=== PATIENT | female | born 1950 | race Two or more races ===

== ENCOUNTER → 2016-08-25 | Outpatient (CLI) | payer MEDICARE, OTHER ==
[2016-08-25 11:06] LABS: PROTHROMBIN TIME 23.6 SEC (11.4-15.4)
== END ==
LOC: OD 10:23
PROVIDERS: ATTEND Internal Medicine Cardiovascular Disease
DX: I48.1 Persistent atrial fibrillation (principal)
CPT/HCPCS: 36415; 85610

== ENCOUNTER → 2016-09-03 | Outpatient (CLI) | payer MEDICARE, OTHER | LOC: OD 11:12 | PROVIDERS: ATTEND Internal Medicine Cardiovascular Disease | DX: I48.1 Persistent atrial fibrillation (principal) | CPT/HCPCS: 36415; 85610 ==

== ENCOUNTER → 2016-09-16 | Outpatient (CLI) | payer MEDICARE, OTHER ==
[2016-09-16 13:15] LABS: PROTHROMBIN TIME 28.9 SEC (11.4-15.4)
== END ==
LOC: OD 12:00
PROVIDERS: ATTEND Internal Medicine Cardiovascular Disease
DX: I48.1 Persistent atrial fibrillation (principal)
CPT/HCPCS: 36415; 85610

== ENCOUNTER → 2016-09-30 | Outpatient (CLI) | payer MEDICARE, OTHER ==
[2016-09-30 13:42] LABS: PROTHROMBIN TIME 29.1 SEC (11.4-15.4)
== END ==
LOC: OD 12:44
PROVIDERS: ATTEND Internal Medicine Cardiovascular Disease
DX: I48.1 Persistent atrial fibrillation (principal)
CPT/HCPCS: 36415; 85610

== ENCOUNTER → 2016-10-14 | Outpatient (CLI) | payer MEDICARE, OTHER ==
[2016-10-14 13:35] LABS: PROTHROMBIN TIME 27.5 SEC (11.4-15.4)
== END ==
LOC: OD 12:45
PROVIDERS: ATTEND Internal Medicine Cardiovascular Disease
DX: I48.1 Persistent atrial fibrillation (principal)
CPT/HCPCS: 36415; 85610

== ENCOUNTER → 2016-10-21 | Outpatient (CLI) | payer MEDICARE, OTHER ==
[2016-10-21 10:48] LABS: HEMOGLOBIN 14.5 g/dL (12.0-15.5); HGB HCT DIFFERENCE 1.5; MEAN CORPUSCULAR HGB CONC 34.5 g/dL (32.0-36.0); MEAN CORPUSCULAR VOLUME 87 fl (80-97); RED BLOOD COUNT 4.82 10^6/uL (3.72-5.28); RED CELL DISTRIBUTION WIDTH 13.9 % (11.5-14.0); WHITE BLOOD COUNT 9.2 10^3/uL (4.0-10.5)
[2016-10-21 11:17] LABS: ALANINE AMINOTRANSFERASE 26 U/L (9-52); ALBUMIN 3.8 g/dL (3.5-5.0); ALKALINE PHOSPHATASE 96 U/L (38-126); ANION GAP 13 (5-19); ASPARTATE AMINO TRANSFERASE 18 U/L (14-36); BILIRUBIN,DIRECT 0.3 mg/dL (0.0-0.4); BILIRUBIN,TOTAL 1.1 mg/dL (0.2-1.3); BLOOD UREA NITROGEN 8 mg/dL (7-20); CALCIUM 9.4 mg/dL (8.4-10.2); CARBON DIOXIDE 24 mmol/L (22-30); CHLORIDE 106 mmol/L (98-107); CHOLESTEROL 129.62 mg/dL (0-200); CREATININE RESULT 0.81 mg/dL (0.52-1.25); Direct HDL 43 mg/dL (>40); GLUCOSE 105 mg/dL (75-110); MAGNESIUM 2.2 mg/dL (1.6-2.3); POTASSIUM 4.2 mmol/L (3.6-5.0); SODIUM 143.3 mmol/L (137-145); TOTAL PROTEIN 6.9 g/dL (6.3-8.2); TRIGLYCERIDES 109 mg/dL (<150)
[2016-10-21 11:29] LABS: DIRECT LDL 56 mg/dL (<100)
== END ==
LOC: OD 09:23
PROVIDERS: ATTEND Internal Medicine Cardiovascular Disease
DX: E78.2 Mixed hyperlipidemia (principal); Z79.899 Other long term (current) drug therapy
CPT/HCPCS: 36415; 80048; 80061; 80076; 83735; 85027

== ENCOUNTER → 2016-10-27 | Outpatient (CLI) | payer MEDICARE, OTHER ==
[2016-10-27 11:14] LABS: PROTHROMBIN TIME 35.1 SEC (11.4-15.4)
== END ==
LOC: OD 09:52
PROVIDERS: ATTEND Internal Medicine Cardiovascular Disease
DX: I48.1 Persistent atrial fibrillation (principal)
CPT/HCPCS: 36415; 85610

== ENCOUNTER → 2016-11-04 | Outpatient (CLI) | payer MEDICARE, OTHER ==
[2016-11-04 11:19] LABS: PROTHROMBIN TIME 22.2 SEC (11.4-15.4)
== END ==
LOC: OD 10:16
PROVIDERS: ATTEND Internal Medicine Cardiovascular Disease
DX: I48.1 Persistent atrial fibrillation (principal)
CPT/HCPCS: 36415; 85610

== ENCOUNTER → 2016-11-11 | Outpatient (CLI) | payer MEDICARE, OTHER ==
[2016-11-11 11:45] LABS: PROTHROMBIN TIME 30.2 SEC (11.4-15.4)
== END ==
LOC: OD 10:44
PROVIDERS: ATTEND Internal Medicine Cardiovascular Disease
DX: I48.1 Persistent atrial fibrillation (principal)
CPT/HCPCS: 36415; 85610

== ENCOUNTER → 2016-11-24 | Outpatient (CLI) | payer MEDICARE, OTHER ==
[2016-11-24 14:04] LABS: PROTHROMBIN TIME 20.3 SEC (11.4-15.4)
== END ==
LOC: OD 12:52
PROVIDERS: ATTEND Internal Medicine Cardiovascular Disease
DX: I48.1 Persistent atrial fibrillation (principal)
CPT/HCPCS: 36415; 85610

== ENCOUNTER → 2016-12-05 | Outpatient (CLI) | payer MEDICARE, OTHER | LOC: RAD 07:56 | PROVIDERS: ATTEND Internal Medicine Gastroenterology | DX: Q44.6 Cystic disease of liver (principal); R60.9 Edema, unspecified | CPT/HCPCS: 74177; 82565 ==

== ENCOUNTER → 2016-12-08 | Outpatient (CLI) | payer MEDICARE, OTHER ==
[2016-12-08 13:43] LABS: PROTHROMBIN TIME 25.8 SEC (11.4-15.4)
== END ==
LOC: OD 12:32
PROVIDERS: ATTEND Internal Medicine Cardiovascular Disease
DX: I48.1 Persistent atrial fibrillation (principal)
CPT/HCPCS: 36415; 85610

== ENCOUNTER → 2016-12-22 | Outpatient (CLI) | payer MEDICARE, OTHER ==
[2016-12-22 11:31] LABS: PROTHROMBIN TIME 25.3 SEC (11.4-15.4)
== END ==
LOC: OD 10:22
PROVIDERS: ATTEND Internal Medicine Cardiovascular Disease
DX: I48.1 Persistent atrial fibrillation (principal)
CPT/HCPCS: 36415; 85610

== ENCOUNTER → 2017-01-05 | Outpatient (CLI) | payer MEDICARE, OTHER ==
[2017-01-05 14:49] LABS: PROTHROMBIN TIME 26.6 SEC (11.4-15.4)
== END ==
LOC: OD 13:28
PROVIDERS: ATTEND Internal Medicine Cardiovascular Disease
DX: I48.1 Persistent atrial fibrillation (principal)
CPT/HCPCS: 36415; 85610

== ENCOUNTER → 2017-02-02 | Outpatient (CLI) | payer MEDICARE, OTHER ==
[2017-02-02 14:21] LABS: PROTHROMBIN TIME 23.6 SEC (11.4-15.4)
== END ==
LOC: OD 12:23
PROVIDERS: ATTEND Internal Medicine Cardiovascular Disease
DX: I48.1 Persistent atrial fibrillation (principal)
CPT/HCPCS: 36415; 85610

== ENCOUNTER → 2017-02-17 | Outpatient (CLI) | payer MEDICARE, OTHER ==
[2017-02-17 13:25] LABS: PROTHROMBIN TIME 25.2 SEC (11.4-15.4)
== END ==
LOC: OD 12:00
PROVIDERS: ATTEND Internal Medicine Cardiovascular Disease
DX: I48.1 Persistent atrial fibrillation (principal)
CPT/HCPCS: 36415; 85610

== ENCOUNTER → 2017-03-09 | Outpatient (CLI) | payer MEDICARE, OTHER ==
[2017-03-09 12:19] LABS: PROTHROMBIN TIME 22.6 SEC (11.4-15.4)
== END ==
LOC: OD 10:35
PROVIDERS: ATTEND Internal Medicine Cardiovascular Disease
DX: I48.1 Persistent atrial fibrillation (principal)
CPT/HCPCS: 36415; 85610

== ENCOUNTER → 2017-03-09 | Outpatient (CLI) | payer MEDICARE, OTHER ==
--- NOTE | 2017-03-09 14:30 | WOMENS IMAGING REPORT ---
EXAM DESCRIPTION: BONE DENSITY HIP/SPINE COMPLETED DATE/TIME: 03/09/2017 11:39 am REASON FOR STUDY: AGE RELATED OSTEOPOROSIS W/O CURRENT PATHOLOGICAL FRACTURE; M81.0 Z12.31 ENCNTR S CREEN MAMMOGRAM FOR MALIGNANT NEOPLASM OF MINISTERIO M81.0 AGE-RELATED OSTEOPOROSIS W/O CURRENT PATHOLOGICA L FRAC COMPARISON: 02/28/2015 back to April 2006 TECHNIQUE: Dual-Energy X-ray Absorptiometry (DEXA) of the AP Spine and Hip. LIMITATIONS: None. FINDINGS: LUMBAR SPINE: The bone mineral density (BMD) measured from L1-L4 in the AP projection correlates with a T-score of 0.1, which is normal as defined by the World Health Organization. HIP: The bone mineral density (BMD) measured in the left hip correlates with a T-score of -1.8 in the femo ral neck, which is osteopenia as defined by the World Health Organization. IMPRESSION: 1. LUMBAR SPINE: Normal 2. HIP: Osteopenia COMMENT: The World Health Organization defines low BMD as follows: T-score: Normal: Greater than -1.0 Osteopenia: Between -1.0 and -2.5 Osteoporosis: Less than -2.5 without fractures Established osteoporosis: Less than -2.5 with fractures In general, you may wish to consider: Diagnosis Treatment Follow-up DEXA Normal BMD Prevention 2-3 years Osteopenia Prevention/Therapy 1-2 years Osteoporosis Therapy Yearly TECHNICAL DOCUMENTATION: JOB ID: [id number]- All Rights Reserved
--- NOTE | 2017-03-09 14:50 | WOMENS IMAGING REPORT ---
EXAM DESCRIPTION: RIGHT SCREENING MAMMO W/CAD COMPLETED DATE/TIME: 03/09/2017 11:40 am REASON FOR STUDY: ROUTINE SCREENING;Z12.31 Z12.31 ENCNTR SCREEN MAMMOGRAM FOR MALIGNANT NEOPLASM OF MINISTERIO M81.0 AGE-RELATED OSTEOPOROSIS W/O CURRENT PATHOLOGICAL FRAC COMPARISON: 03/04/2016 and 02/28/2015. TECHNIQUE: Standard craniocaudal and mediolateral oblique views of the breast recorded using digital acquisition. LIMITATIONS: None. FINDINGS: BREAST: right No masses, calcifications or architectural distortion. No areas of suspicion. Read with the assistance of CAD. .[facility] - R2 Cenova Version 1.3 .[facility] - R2 Cenova Version 1.3 .[facility] - R2 Cenova Version 2.4 .[facility] R2 Cenova Version 2.4 .[facility] - R2 Art [employer]raiser Version 9.2 IMPRESSION: NORMAL MAMMOGRAM. BIRADS 1. BREAST DENSITY: b. There are scattered areas of fibroglandular density. BIRAD: 1 NEGATIVE RECOMMENDATION: RECOMMENDATION: ROUTINE SCREENING. COMMENT: The patient has been notified of the results by letter per SA requirements. Additional no tification policies are in place for contacting patient with suspicious or incomplete findings. Quality ID #[id number]: The [employer] recommends an annual screening mammogram for women aged 40 years or over. This facility utilizes a reminder system to ensure that all patients receive reminder letters, and/or direct phone calls for appointments. This includes reminders for routine scr eening mammograms, diagnostic mammograms, or other Breast Imaging Interventions when appropriate. Th is patient will be placed in the appropriate reminder system. The [employer] (ACR) has developed recommendations for screening MRI of the breast s in certain patient populations, to be used in conjunction with mammography. Breast MRI surveillance may be appropriate for women with more than 20% lifetime risk of developing breast cancer as determi riya by genetic testing, significant family history of the disease, or history of mantle radiation for Hodgkins Disease. ACR Practice Guidelines 2008. TECHNICAL DOCUMENTATION: FINDING NUMBER: (1) ASSESSMENT: (1) JOB ID: [id number] [employer]- All Rights Reserved
== END ==
LOC: WI 08:52
PROVIDERS: ATTEND Internal Medicine Medical Oncology
DX: Z12.31 Encounter for screening mammogram for malignant neoplasm of breast (principal); M81.0 Age-related osteoporosis without current pathological fracture
CPT/HCPCS: 77080; G0202

== ENCOUNTER → 2017-03-23 | Outpatient (CLI) | payer MEDICARE, OTHER ==
[2017-03-23 13:20] LABS: PROTHROMBIN TIME 28.2 SEC (11.4-15.4)
== END ==
LOC: OD 12:31
PROVIDERS: ATTEND Internal Medicine Cardiovascular Disease
DX: Z79.01 Long term (current) use of anticoagulants (principal); Z79.899 Other long term (current) drug therapy
CPT/HCPCS: 36415; 85610

== ENCOUNTER → 2017-04-07 | Outpatient (CLI) | payer MEDICARE, OTHER ==
[2017-04-07 13:13] LABS: PROTHROMBIN TIME 25.1 SEC (11.4-15.4)
== END ==
LOC: OD 12:17
PROVIDERS: ATTEND Internal Medicine Cardiovascular Disease
DX: Z79.01 Long term (current) use of anticoagulants (principal); Z79.899 Other long term (current) drug therapy
CPT/HCPCS: 36415; 85610

== ENCOUNTER → 2017-04-20 | Outpatient (CLI) | payer MEDICARE, OTHER ==
[2017-04-20 14:06] LABS: PROTHROMBIN TIME 26.5 SEC (11.4-15.4)
== END ==
LOC: OD 12:47
PROVIDERS: ATTEND Internal Medicine Cardiovascular Disease
DX: Z51.81 Encounter for therapeutic drug level monitoring (principal); Z79.01 Long term (current) use of anticoagulants; Z79.899 Other long term (current) drug therapy
CPT/HCPCS: 36415; 85610

== ENCOUNTER → 2017-05-18 | Outpatient (CLI) | payer MEDICARE, OTHER ==
[2017-05-18 13:58] LABS: PROTHROMBIN TIME 26.1 SEC (11.4-15.4)
== END ==
LOC: OD 12:34
PROVIDERS: ATTEND Internal Medicine Cardiovascular Disease
DX: Z79.01 Long term (current) use of anticoagulants (principal); Z79.899 Other long term (current) drug therapy
CPT/HCPCS: 36415; 85610

== ENCOUNTER → 2017-06-15 | Outpatient (CLI) | payer MEDICARE, OTHER ==
[2017-06-15 15:32] LABS: PROTHROMBIN TIME 26.6 SEC (11.4-15.4)
== END ==
LOC: OD 14:24
PROVIDERS: ATTEND Internal Medicine Cardiovascular Disease
DX: Z51.81 Encounter for therapeutic drug level monitoring (principal); Z79.01 Long term (current) use of anticoagulants; Z79.899 Other long term (current) drug therapy
CPT/HCPCS: 36415; 85610

== ENCOUNTER → 2017-07-13 | Outpatient (CLI) | payer MEDICARE, OTHER ==
[2017-07-13 11:40] LABS: HEMATOCRIT 42.1 % (36.0-47.0); HEMOGLOBIN 14.5 g/dL (12.0-15.5); HGB HCT DIFFERENCE 1.4; MEAN CORPUSCULAR HEMOGLOBIN 30.1 pg (27.0-33.4); MEAN CORPUSCULAR HGB CONC 34.5 g/dL (32.0-36.0); MEAN CORPUSCULAR VOLUME 87 fl (80-97); RED BLOOD COUNT 4.83 10^6/uL (3.72-5.28); RED CELL DISTRIBUTION WIDTH 13.4 % (11.5-14.0); WHITE BLOOD COUNT 7.1 10^3/uL (4.0-10.5)
[2017-07-13 11:46] LABS: PROTHROMBIN TIME 23.6 SEC (11.4-15.4)
[2017-07-13 12:09] LABS: ALANINE AMINOTRANSFERASE 33 U/L (9-52); ALBUMIN 3.9 g/dL (3.5-5.0); ALKALINE PHOSPHATASE 78 U/L (38-126); ANION GAP 9 (5-19); ASPARTATE AMINO TRANSFERASE 22 U/L (14-36); BILIRUBIN,DIRECT 0.4 mg/dL (0.0-0.4); BILIRUBIN,TOTAL 0.8 mg/dL (0.2-1.3); BLOOD UREA NITROGEN 16 mg/dL (7-20); CALCIUM 9.9 mg/dL (8.4-10.2); CARBON DIOXIDE 30 mmol/L (22-30); CHLORIDE 106 mmol/L (98-107); CHOLESTEROL 124.05 mg/dL (0-200); CREATININE RESULT 0.98 mg/dL (0.52-1.25); Direct HDL 47 mg/dL (>40); GLUCOSE 100 mg/dL (75-110); MAGNESIUM 2.1 mg/dL (1.6-2.3); POTASSIUM 4.4 mmol/L (3.6-5.0); SODIUM 145.3 mmol/L (137-145); TOTAL PROTEIN 6.8 g/dL (6.3-8.2); TRIGLYCERIDES 132 mg/dL (<150)
[2017-07-13 12:20] LABS: DIRECT LDL 51 mg/dL (<100)
== END ==
LOC: OD 10:49
PROVIDERS: ATTEND Internal Medicine Cardiovascular Disease
DX: E87.6 Hypokalemia (principal); E78.2 Mixed hyperlipidemia; I48.1 Persistent atrial fibrillation; Z79.01 Long term (current) use of anticoagulants; Z79.899 Other long term (current) drug therapy
CPT/HCPCS: 36415; 80048; 80061; 80076; 83735; 85027; 85610

== ENCOUNTER → 2017-07-21 | Outpatient (CLI) | payer MEDICARE, OTHER ==
[2017-07-21 13:02] LABS: PROTHROMBIN TIME 23.3 SEC (11.4-15.4)
== END ==
LOC: OD 12:06
PROVIDERS: ATTEND Internal Medicine Cardiovascular Disease
DX: Z79.01 Long term (current) use of anticoagulants (principal); Z79.899 Other long term (current) drug therapy
CPT/HCPCS: 36415; 85610

== ENCOUNTER → 2017-08-04 | Outpatient (CLI) | payer MEDICARE, OTHER ==
[2017-08-04 11:23] LABS: INTERNATIONAL RATION (INR) 1.87; PROTHROMBIN TIME 22.6 SEC (11.4-15.4)
== END ==
LOC: OD 10:29
PROVIDERS: ATTEND Internal Medicine Cardiovascular Disease
DX: Z79.01 Long term (current) use of anticoagulants (principal); Z79.899 Other long term (current) drug therapy
CPT/HCPCS: 36415; 85610

== ENCOUNTER 2017-08-07 16:44 | Emergency (ER) | payer MEDICARE, OTHER ==
[2017-08-07] MEDS ORDERED: ONDANSETRON HCL INJ/PF 4 MG/2 ML SDV IV ONE (17:59)
[2017-08-07] MEDS ORDERED: MORPHINE SULFATE 10 MG/ML INJ IV ONE (17:59)
[2017-08-07] MEDS ORDERED: NORMAL SALINE 1000 ML 1,000 ML IV ONE ×2 (18:00→21:29)
--- NOTE | 2017-08-07 18:01 | ER Document Report ---
ED Medical Screen (RME) - General Chief Complaint: Back Pain Stated Complaint: FALL;BACK PAIN Time Seen by Provider: 08/07/17 17:51 Mode of Arrival: Ambulatory Information source: Patient Notes: 67-year-old female presents with complaints of vomiting 4 with left upper quadrant abdominal pain. Patient denies any fevers or chills this pain radiates to her back I have greeted and performed a rapid initial assessment of this patient. A comprehensive ED assessment and evaluation of the patient, analysis of test results and completion of the medical decision making process will be conducted by additional ED providers. PHYSICAL EXAMINATION: GENERAL: Well-appearing, well-nourished and in no acute distress. HEAD: Atraumatic, normocephalic. EYES: Pupils equal round extraocular movements intact, conjunctiva are normal. ENT: Nares patent NECK: Normal range of motion LUNGS: No respiratory distress Musculoskeletal: Normal range of motion NEUROLOGICAL: Normal speech, normal gait. PSYCH: Normal mood, normal affect. SKIN: Warm, Dry, normal turgor, no rashes or lesions noted. TRAVEL OUTSIDE OF THE [place] IN LAST 30 DAYS: No - Related Data Allergies/Adverse Reactions: No Known Allergies Allergy (Verified 08/07/17 16:45) Past Medical History - Social History Chew tobacco use (# tins/day): No Frequency of alcohol use: None Drug Abuse: None - Past Medical History Cardiac Medical History: Reports: Hx Coronary Artery Disease, Hx Hypercholesterolemia, Hx Hypertension Denies: Hx Heart Attack Pulmonary Medical History: Denies: Hx Asthma, Hx Bronchitis, Hx COPD, Hx Pneumonia Neurological Medical History: Denies: Hx Cerebrovascular Accident, Hx Seizures Endocrine Medical History: Reports: Hx Diabetes Mellitus Type 2 - DIET CONTROLLED Renal/ Medical History: Denies: Hx Peritoneal Dialysis Malignancy Medical History: Reports: Hx Breast Cancer GI Medical History: Reports: Hx Gastroesophageal Reflux Disease Musculoskeltal Medical History: Reports Hx Arthritis Psychiatric Medical History: Denies: Hx Depression Past Surgical History: Reports: Hx Appendectomy, Hx Breast Surgery - left mastectomy, Hx Hysterectomy, Hx Tonsillectomy. Denies: Hx Pacemaker - Immunizations Hx Diphtheria, Pertussis, Tetanus Vaccination: Yes Physical Exam - Vital signs Vitals: Temp Pulse Resp BP Pulse Ox 97.8 F 117 H 20 104/54 L 97 08/07/17 16:52 08/07/17 16:52 08/07/17 16:52 08/07/17 16:52 08/07/17 16:52 Course - Vital Signs Vital signs: Temp Pulse Resp BP Pulse Ox 97.8 F 117 H 20 104/54 L 97 08/07/17 16:52 08/07/17 16:52 08/07/17 17:41 08/07/17 16:52 08/07/17 16:52
[2017-08-07 19:31] LABS: ABSOLUTE LYMPHOCYTES (AUTO) 0.8 10^3/uL (0.5-4.7); ABSOLUTE MONOCYTES (AUTO) 0.7 10^3/uL (0.1-1.4); ABSOLUTE NEUT (AUTO) 12.9 10^3/uL (1.7-8.2); BASOPHILS % (AUTO) 0.3 % (0-2); EOSINOPHILS % (AUTO) 0.1 % (0-6); HEMATOCRIT 45.5 % (36.0-47.0); HEMOGLOBIN 15.4 g/dL (12.0-15.5); LYMPHOCYTES % (AUTO) 5.6 % (13-45); MEAN CORPUSCULAR HEMOGLOBIN 29.8 pg (27.0-33.4); MEAN CORPUSCULAR HGB CONC 33.9 g/dL (32.0-36.0); MEAN CORPUSCULAR VOLUME 88 fl (80-97); MONOCYTES % (AUTO) 4.6 % (3-13); PLATELET COUNT 263 10^3/uL (150-450); RED BLOOD COUNT 5.17 10^6/uL (3.72-5.28); RED CELL DISTRIBUTION WIDTH 14.2 % (11.5-14.0); SEGMENTED NEUTROPHILS % (AUTO) 89.4 % (42-78); TOTAL CELLS COUNTED % (AUTO) 100 %; WHITE BLOOD COUNT 14.4 10^3/uL (4.0-10.5)
[2017-08-07 19:47] LABS: ALANINE AMINOTRANSFERASE 156 U/L (9-52); ALBUMIN 4.4 g/dL (3.5-5.0); ALKALINE PHOSPHATASE 122 U/L (38-126); ANION GAP 11 (5-19); ASPARTATE AMINO TRANSFERASE 248 U/L (14-36); BILIRUBIN,DIRECT 1.8 mg/dL (0.0-0.4); BILIRUBIN,TOTAL 2.6 mg/dL (0.2-1.3); BLOOD UREA NITROGEN 14 mg/dL (7-20); CALCIUM 10.1 mg/dL (8.4-10.2); CARBON DIOXIDE 29 mmol/L (22-30); CHLORIDE 106 mmol/L (98-107); GLUCOSE 113 mg/dL (75-110); POTASSIUM 4.2 mmol/L (3.6-5.0); SODIUM 145.8 mmol/L (137-145); TOTAL PROTEIN 7.7 g/dL (6.3-8.2)
--- NOTE | 2017-08-07 20:12 | ER Document Report ---
ED GI/ - General Chief Complaint: Back Pain Stated Complaint: FALL;BACK PAIN Time Seen by Provider: 08/07/17 17:51 Mode of Arrival: Ambulatory Notes: The patient is a 67-year-old female, past medical history possible liver cysts with removal in the past, prior hysterectomy and appendectomy, a fib (on Coumadin), presents with a few hours of right upper quadrant abdominal pain radiating to her right flank, nausea and 4 episodes of nonbloody emesis. She has never had this before. Her pain has resolved on my evaluation. She denies fevers, rash, active chest or abdominal pain, headache, dysuria, hematuria or shortness of breath. TRAVEL OUTSIDE OF THE [place] IN LAST 30 DAYS: No - Related Data Allergies/Adverse Reactions: No Known Allergies Allergy (Verified 08/07/17 16:45) Past Medical History - General Information source: Patient - Social History Smoking Status: Never Smoker Chew tobacco use (# tins/day): No Frequency of alcohol use: None Drug Abuse: None Family History: Reviewed & Not Pertinent Patient has suicidal ideation: No Patient has homicidal ideation: No - Past Medical History Cardiac Medical History: Reports: Hx Coronary Artery Disease, Hx Hypercholesterolemia, Hx Hypertension Denies: Hx Heart Attack Pulmonary Medical History: Denies: Hx Asthma, Hx Bronchitis, Hx COPD, Hx Pneumonia Neurological Medical History: Denies: Hx Cerebrovascular Accident, Hx Seizures Endocrine Medical History: Reports: Hx Diabetes Mellitus Type 2 - DIET CONTROLLED Renal/ Medical History: Denies: Hx Peritoneal Dialysis Malignancy Medical History: Reports: Hx Breast Cancer GI Medical History: Reports: Hx Gastroesophageal Reflux Disease Musculoskeltal Medical History: Reports Hx Arthritis Psychiatric Medical History: Denies: Hx Depression Past Surgical History: Reports: Hx Appendectomy, Hx Breast Surgery - left mastectomy, Hx Hysterectomy, Hx Tonsillectomy. Denies: Hx Pacemaker - Immunizations Hx Diphtheria, Pertussis, Tetanus Vaccination: Yes Hx Pneumococcal Vaccination: 04/03/06 Review of Systems - Review of Systems Notes: REVIEW OF SYSTEMS: CONSTITUTIONAL: -fevers, -chills EENT: -eye pain, -difficulty swallowing, -nasal congestion CARDIOVASCULAR: -chest pain, -syncope. RESPIRATORY: -cough, -SOB GASTROINTESTINAL: +RUQ abdominal pain, +nausea, +vomiting, -diarrhea GENITOURINARY: -dysuria, -hematuria MUSCULOSKELETAL: -back pain, -neck pain SKIN: -rash or skin lesions. HEMATOLOGIC: -easy bruising or bleeding. LYMPHATIC: -swollen, enlarged glands. NEUROLOGICAL: -altered mental status or loss of consciousness, -headache, - neurologic symptoms PSYCHIATRIC: -anxiety, -depression. ALL OTHER SYSTEMS REVIEWED AND NEGATIVE. Physical Exam - Vital signs Vitals: Temp Pulse Resp BP Pulse Ox 97.8 F 117 H 20 104/54 L 97 08/07/17 16:52 08/07/17 16:52 08/07/17 16:52 08/07/17 16:52 08/07/17 16:52 - Notes Notes: PHYSICAL EXAMINATION: GENERAL: Well-appearing, well-nourished and in no acute distress. HEAD: Atraumatic, normocephalic. EYES: Pupils equal round and reactive to light, extraocular movements intact, sclera anicteric, conjunctiva are normal. ENT: nares patent, oropharynx clear without exudates. Moist mucous membranes. NECK: Normal range of motion, supple without lymphadenopathy LUNGS: Breath sounds clear to auscultation bilaterally and equal. No wheezes rales or rhonchi. HEART: Tachycardia, irregular rhythm ABDOMEN: Soft, mild RUQ tenderness, normoactive bowel sounds. No guarding, no rebound. No masses appreciated. EXTREMITIES: Normal range of motion, no pitting or edema. No cyanosis. NEUROLOGICAL: Cranial nerves grossly intact. Normal speech, normal gait. Normal sensory and motor exams. PSYCH: Normal mood, normal affect. SKIN: Warm, Dry, normal turgor, no rashes or lesions noted. Course - Re-evaluation Re-evalutation: Patient appears well and is in no acute distress or active pain on my evaluation. Blood work is remarkable for a leukocytosis of 14.[address] of the abdomen and pelvis and right upper quadrant ultrasound does not show any acute findings, including no evidence of mesenteric ischemia. She has no abdominal tenderness at this time. Spoke to patient about her LFT elevation and she said she will follow-up with her GI doctor for a recheck. She said that she has known liver issues. Influenza is negative and urinalysis does not show any signs of UTI or pyelonephritis. Instructed patient about staying hydrated and following-up with her primary care physician and GI doctor. Pt slightly tachycardic to 105 on discharge, but she said that she is due for her evening metoprolol and she will take it when she gets home. Repeat abdominal exam shows absolutely no tenderness and she has no pain. Given very strict return precautions and she understands. - Vital Signs Vital signs: Temp Pulse Resp BP Pulse Ox 98.1 F 105 H 16 126/57 H 96 08/07/17 23:01 08/07/17 23:01 08/07/17 23:01 08/07/17 23:01 08/07/17 23:01 - Laboratory Result Diagrams: 08/07/17 19:17 08/07/17 19:17 Laboratory results interpreted by me: 08/07/17 08/07/17 08/07/17 19:17 19:17 21:45 WBC 14.4 H RDW 14.2 H Seg Neutrophils % 89.4 H Lymphocytes % 5.6 L Absolute Neutrophils 12.9 H PT 23.5 H APTT 40.3 H Sodium 145.8 H Est GFR (Non-Af Amer) 54 L Glucose 113 H Total Bilirubin 2.6 H Direct Bilirubin 1.8 H AST 248 H ALT 156 H Urine Protein Urine Urobilinogen Ur Leukocyte Esterase 08/07/17 21:45 WBC RDW Seg Neutrophils % Lymphocytes % Absolute Neutrophils PT APTT Sodium Est GFR (Non-Af Amer) Glucose Total Bilirubin Direct Bilirubin AST ALT Urine Protein 30 H Urine Urobilinogen 4.0 H Ur Leukocyte Esterase TRACE H - Diagnostic Test Radiology reviewed: Image reviewed, Reports reviewed Radiology results interpreted by me: CT A/P: NAD RUQ US: Known liver cysts, no other acute findings Discharge - Discharge Clinical Impression: Elevated LFTs Abdominal pain Qualifiers: Abdominal location: unspecified location Qualified Code(s): R10.9 - Unspecified abdominal pain Leukocytosis Qualifiers: Leukocytosis type: unspecified Qualified Code(s): D72.829 - Elevated white blood cell count, unspecified Condition: Stable Disposition: HOME, SELF-CARE Additional Instructions: The blood test looking at your liver are elevated today. Your ultrasound and CAT scan do not show any acute findings with your liver or gallbladder. You must follow-up with your liver doctor and primary care doctor for a recheck of your symptoms. Return to the ER at any time if you have worsening symptoms or any other concerns. ABDOMINAL PAIN: There are many causes of abdominal pain. Pain can mean a serious problem requiring surgery (such as appendicitis). It can also be an innocent problem that goes away on its own (such as a viral infection). Often, time must pass to determine the cause of pain. The physician does not feel that hospitalization is necessary, at present. Things may change within the next 24 hours. Call the doctor or come back for re- examination if any problems occur, such as: (1) Pain that becomes more severe, steady, or becomes concentrated in one specific area. Also, pain that is more severe with movement or coughing. (2) Vomiting that persists or becomes more frequent. (3) Blood in the vomitus, urine, or bowel movements. Blood in the stool may have a tarry or black appearance. (4) Shaking chills or fever greater than 100 degrees F. (5) The abdomen becomes more distended or swollen. (6) Bowel movements cease. (7) Failure to improve as expected. NORMAL EXAM AND WORKUP: At this time, your examination and workup show no significant abnormality. No significant abnormal physical findings are noted. All laboratory, EKG, and imaging (x-ray, CT scans, ultrasound) studies that were ordered show no significant abnormality. Although your examination and all studies that were ordered showed no significant abnormal finding, there are no examinations and no studies that are 100% accurate. There is always the possibility that some abnormality could exist and not be detected with physical examination or within the limits and capabilities of laboratory and other studies. You should return or follow up as you were instructed on your visit today for further evaluation if your symptoms do not resolve. FOLLOW-UP CARE: If you have been referred to a physician for follow-up care, call the physician s office for an appointment as you were instructed or within the next two days. If you experience worsening or a significant change in your symptoms, notify the physician immediately or return to the Emergency Department at any time for re-evaluation. Referrals: CRISS WATTERS MD [Primary Care Provider] - Follow up as needed JORDI MAS MD [ACTIVE STAFF] - Follow up as needed
--- NOTE | 2017-08-07 20:30 | RADIOLOGY REPORT (SQ) ---
EXAM DESCRIPTION: CT ABD/PELVIS WITH IV ONLY COMPLETED DATE/TIME: 08/07/2017 8:15 pm REASON FOR STUDY: left upper quadrant pain COMPARISON: 12/05/2016 TECHNIQUE: CT scan of the abdomen and pelvis performed using helical scanning technique with dynamic intravenous contrast injection. No oral contrast. Images reviewed with lung, soft tissue, and bone windows. Reconstructed coronal and sagittal MPR images reviewed. Delayed images for evaluation of the urinary system also acquired. All images stored on PACS. All CT scanners at this facility use dose modulation, iterative reconstruction, and/or weight based d osing when appropriate to reduce radiation dose to as low as reasonably achievable (ALARA). [facility]: Dose Right [facility]: CareDose [facility]: Dose Right [facility]: Teradose 4D [facility]: [employer] CONTRAST TYPE AND DOSE: contrast/concentration: Isovue 370.00 mg/ml; Total Contrast Delivered: 79.0 ml; Total Saline Delivered: 43.1 ml RENAL FUNCTION: Creatinine 1.02 RADIATION DOSE: CT Rad equipment meets quality standard of care and radiation dose reduction techniq ues were employed. CTDIvol: 5.8 - 8.2 mGy. DLP: 796 mGy-cm.. LIMITATIONS: None. FINDINGS: LOWER CHEST: No significant findings. No nodules or infiltrates. LIVER: Multiple hepatic cysts. Stable or smaller. Specifically the most posterior central cyst is 2 cm smaller than previously. SPLEEN: Normal size. No focal lesions. PANCREAS: No masses. No significant calcifications. No adjacent inflammation or peripancreatic fluid collections. Pancreatic duct not dilated. GALLBLADDER: No identified stones by CT criteria. No inflammatory changes to suggest cholecystitis. ADRENAL GLANDS: No significant masses or asymmetry. RIGHT KIDNEY AND URETER: No solid masses. No significant calcifications. No hydronephrosis or hyd roureter. LEFT KIDNEY AND URETER: No solid masses. No significant calcifications. No hydronephrosis or hydr oureter. AORTA AND VESSELS: No aneurysm. No dissection. Renal arteries, SMA, celiac without stenosis. RETROPERITONEUM: No retroperitoneal adenopathy, hemorrhage or masses. BOWEL AND PERITONEAL CAVITY: No masses or inflammatory changes. No free fluid or peritoneal masses. APPENDIX: Surgically absent. PELVIS: No mass. No free fluid. Normal bladder. ABDOMINAL WALL: No masses. No hernias. BONES: No significant or acute findings. OTHER: No other significant finding. IMPRESSION: No acute findings. Stable or smaller hepatic cysts. TECHNICAL DOCUMENTATION: JOB ID: [id number] Quality ID # [id number]: Final reports with documentation of one or more dose reduction techniques (e.g., Au tomated exposure control, adjustment of the mA and/or kV according to patient size, use of iterative reconstruction technique) 2010 [employer]- All Rights Reserved
--- NOTE | 2017-08-07 21:08 | RADIOLOGY REPORT (SQ) ---
EXAM DESCRIPTION: U/S ABDOMEN LIMITED W/O DOP COMPLETED DATE/TIME: 08/07/2017 8:55 pm REASON FOR STUDY: RUQ pain COMPARISON: CT same day. Multiple prior studies. TECHNIQUE: Dynamic and static grayscale images acquired of the abdomen and recorded on PACS. Additio nal selected color Doppler and spectral images recorded. LIMITATIONS: None. FINDINGS: PANCREAS: Not visualized. LIVER: Multiple hepatic cysts. No suspicious findings. LIVER VASCULATURE: Normal directional flow of the main portal vein and hepatic veins. GALLBLADDER: No stones. Normal wall thickness. No pericholecystic fluid. ULTRASOUND-DETECTED DEWITT'S SIGN: Negative. INTRAHEPATIC DUCTS AND COMMON DUCT: CBD and intrahepatic ducts normal caliber. No filling defects. INFERIOR VENA CAVA: Normal flow. AORTA: No aneurysm. RIGHT KIDNEY: Normal size. Normal echogenicity. No solid or suspicious masses. No hydronephrosis. No calcifications. PERITONEAL AND RIGHT PLEURAL SPACE: No ascites or effusions. OTHER: No other significant findings. IMPRESSION: Multiple hepatic cysts. No worrisome findings. TECHNICAL DOCUMENTATION: JOB ID: [id number] [employer]- All Rights Reserved
[2017-08-07 22:04] LABS: INTERNATIONAL RATION (INR) 1.97; PROTHROMBIN TIME 23.5 SEC (11.4-15.4)
[2017-08-07 22:05] LABS: PARTIAL THROMBOPLASTIN TIME 40.3 SEC (23.5-35.8)
[2017-08-07 22:27] LABS: A TYPE INFLUENZA AG NEGATIVE (NEGATIVE); B INFLUENZA AG NEGATIVE (NEGATIVE)
--- NOTE | 2017-08-07 22:27 | RADIOLOGY REPORT (SQ) ---
EXAM DESCRIPTION: CHEST SINGLE VIEW COMPLETED DATE/TIME: 08/07/2017 10:16 pm REASON FOR STUDY: fever, cough COMPARISON: 03/04/2015 EXAM PARAMETERS: NUMBER OF VIEWS: One view. TECHNIQUE: Single frontal radiographic view of the chest acquired. RADIATION DOSE: NA LIMITATIONS: None. FINDINGS: LUNGS AND PLEURA: No opacities, masses or pneumothorax. No pleural effusion. MEDIASTINUM AND HILAR STRUCTURES: No masses. Contour normal. HEART AND VASCULAR STRUCTURES: Heart normal in size. Normal vasculature. BONES: No acute findings. HARDWARE: None in the chest. OTHER: No other significant finding. IMPRESSION: NO ACUTE RADIOGRAPHIC FINDING IN THE CHEST. TECHNICAL DOCUMENTATION: JOB ID: [id number] [employer]- All Rights Reserved
[2017-08-07 22:49] LABS: APPEARANCE,URINE CLEAR; BILIRUBIN,URINE NEGATIVE (NEGATIVE); GLUCOSE, URINE NEGATIVE (NEGATIVE); KETONES,URINE NEGATIVE (NEGATIVE); LEUKOCYTE ESTERASE,URINE TRACE (NEGATIVE); NITRITE,URINE NEGATIVE (NEGATIVE); PROTEIN,URINE 30 mg/dL (NEGATIVE)
[2017-08-07 22:51] LABS: COLOR,URINE YELLOW; URINE SPECIFIC GRAVITY > 1.060
[2017-08-07 23:08] VITALS: BP 126/57
--- NOTE | 2017-08-08 11:39 | EKG REPORT ---
SEVERITY:- ABNORMAL ECG - ATRIAL FIBRILLATION, V-RATE 90-167 NONSPECIFIC REPOL ABNORMALITY, LATERAL LEADS : Confirmed by: René Norris 08-Aug-2017 11:39:12
== END 2017-08-07 23:26 | disposition home or self-care (01) ==
LOC: ER 16:44
DX: R94.5 Abnormal results of liver function studies (principal); D72.829 Elevated white blood cell count, unspecified; R10.9 Unspecified abdominal pain; M54.9 Dorsalgia, unspecified; R11.2 Nausea with vomiting, unspecified; R10.11 Right upper quadrant pain; E78.00 Pure hypercholesterolemia, unspecified; I25.10 Atherosclerotic heart disease of native coronary artery without angina pectoris; I48.91 Unspecified atrial fibrillation; E11.9 Type 2 diabetes mellitus without complications; Z79.02 Long term (current) use of antithrombotics/antiplatelets; Z90.710 Acquired absence of both cervix and uterus; Z85.3 Personal history of malignant neoplasm of breast
CPT/HCPCS: 93005; 99285; 96361; 96374; 96375; 36415; 85025; 85610; 85730; 80053; 81001; 87804; 71045; 76705; 74177; 93010; J2270; J2405; J7030

== ENCOUNTER 2017-08-11 00:15 | Inpatient (IN) | payer MEDICARE, OTHER ==
[2017-08-11] MEDS ORDERED: NORMAL SALINE 1000 ML 1,000 ML IV ONE (02:01)
[2017-08-11] MEDS ORDERED: ONDANSETRON HCL INJ/PF 4 MG/2 ML SDV IV ONE (02:02)
[2017-08-11 02:41] LABS: ABSOLUTE LYMPHOCYTES (AUTO) 1.1 10^3/uL (0.5-4.7); ABSOLUTE MONOCYTES (AUTO) 0.8 10^3/uL (0.1-1.4); ABSOLUTE NEUT (AUTO) 11.7 10^3/uL (1.7-8.2); BASOPHILS % (AUTO) 0.3 % (0-2); HEMATOCRIT 39.4 % (36.0-47.0); HEMOGLOBIN 13.3 g/dL (12.0-15.5); LYMPHOCYTES % (AUTO) 7.9 % (13-45); MEAN CORPUSCULAR HEMOGLOBIN 29.3 pg (27.0-33.4); MEAN CORPUSCULAR HGB CONC 33.7 g/dL (32.0-36.0); MEAN CORPUSCULAR VOLUME 87 fl (80-97); MONOCYTES % (AUTO) 5.8 % (3-13); PLATELET COUNT 169 10^3/uL (150-450); RED BLOOD COUNT 4.53 10^6/uL (3.72-5.28); TOTAL CELLS COUNTED % (AUTO) 100 %; WHITE BLOOD COUNT 13.6 10^3/uL (4.0-10.5)
--- NOTE | 2017-08-11 02:44 | ER Document Report ---
ED General - General Chief Complaint: Nausea/Vomiting/Diarrhea Stated Complaint: NAUSEA,VOMITING Time Seen by Provider: 08/11/17 01:59 Mode of Arrival: Wheelchair Information source: Patient, Relative - daughter Notes: 67 year old female with history of atrial fibrillation (on Coumadin), hyperlipidema, hypertension, and CAD presents to the ED complaining of falling 3 times last night and being unable to pick herself up. Patient was seen here on Thursday after falling on where a full workup was performed. Patient was discharged home but states she has become weaker since leaving. Patient additionally reports to having urinary incontinence. Patient feels off balance and states that she has some shortness of breath. Patient denies vomiting, headache, chest pain, or abdominal pain. Patient has no recent changes in her medications. Daughter states that the patient woke up this morning at 0700 and was confused why it was so bright out. Patient thought that it was 2200. TRAVEL OUTSIDE OF THE [place] IN LAST 30 DAYS: No - HPI Patient complains to provider of: Fall and shortness of breath Onset: Other - last night Associated symptoms: Other - see notes above - Related Data Allergies/Adverse Reactions: No Known Allergies Allergy (Verified 08/07/17 16:45) Past Medical History - General Information source: Patient - Social History Smoking Status: Unknown if Ever Smoked Family History: Reviewed & Not Pertinent - Past Medical History Cardiac Medical History: Reports: Hx Coronary Artery Disease, Hx Hypercholesterolemia, Hx Hypertension Denies: Hx Heart Attack Pulmonary Medical History: Denies: Hx Asthma, Hx Bronchitis, Hx COPD, Hx Pneumonia Neurological Medical History: Denies: Hx Cerebrovascular Accident, Hx Seizures Endocrine Medical History: Reports: Hx Diabetes Mellitus Type 2 - DIET CONTROLLED Renal/ Medical History: Denies: Hx Peritoneal Dialysis Malignancy Medical History: Reports: Hx Breast Cancer GI Medical History: Reports: Hx Gastroesophageal Reflux Disease Musculoskeltal Medical History: Reports Hx Arthritis Psychiatric Medical History: Denies: Hx Depression Past Surgical History: Reports: Hx Appendectomy, Hx Breast Surgery - left mastectomy, Hx Hysterectomy, Hx Tonsillectomy. Denies: Hx Pacemaker - Immunizations Hx Diphtheria, Pertussis, Tetanus Vaccination: Yes Hx Pneumococcal Vaccination: 04/03/06 Review of Systems - Review of Systems Constitutional: See HPI, Malaise EENT: No symptoms reported Cardiovascular: No symptoms reported. denies: Chest pain Respiratory: No symptoms reported Gastrointestinal: No symptoms reported. denies: Abdominal pain, Vomiting Genitourinary: See HPI, Incontinence Female Genitourinary: No symptoms reported Musculoskeletal: No symptoms reported Skin: No symptoms reported Hematologic/Lymphatic: No symptoms reported Neurological/Psychological: See HPI, Weakness, Other - off balance. denies: Headaches -: Yes All other systems reviewed and negative Physical Exam - Vital signs Vitals: Temp Pulse Resp BP Pulse Ox 99.6 F 102 H 18 102/52 L 95 08/11/17 00:21 08/11/17 00:21 08/11/17 00:21 08/11/17 00:21 08/11/17 00:21 Course - Vital Signs Vital signs: Temp Pulse Resp BP Pulse Ox 99.3 F 102 H 18 102/52 L 95 08/11/17 04:23 08/11/17 00:21 08/11/17 00:21 08/11/17 00:21 08/11/17 00:21 - Laboratory Result Diagrams: 08/11/17 02:25 08/11/17 02:25 Laboratory results interpreted by me: 08/11/17 08/11/17 08/11/17 02:25 02:25 02:25 WBC 13.6 H Seg Neutrophils % 86.0 H Lymphocytes % 7.9 L Absolute Neutrophils 11.7 H PT 26.4 H Potassium 3.5 L Glucose 124 H Total Bilirubin 1.7 H Direct Bilirubin 0.7 H ALT 73 H Urine Blood Ur Leukocyte Esterase 08/11/17 03:00 WBC Seg Neutrophils % Lymphocytes % Absolute Neutrophils PT Potassium Glucose Total Bilirubin Direct Bilirubin ALT Urine Blood MODERATE H Ur Leukocyte Esterase MODERATE H - Consults Dr. Larsen Time consulted: 05:25 Reason for consultation: 08/11/17 05:[address] Larsen and will re-discuss admitting the patient. Discharge - Discharge Referrals: CRISS WATTERS MD [Primary Care Provider] - Follow up as needed Scribe Documentation - Scribe Written by Jenifer:: Jenifer Wong, 08/11/2017 0249 acting as scribe for :: Delano
[2017-08-11 03:06] LABS: ALANINE AMINOTRANSFERASE 73 U/L (9-52); ALBUMIN 3.5 g/dL (3.5-5.0); ALKALINE PHOSPHATASE 109 U/L (38-126); ANION GAP 9 (5-19); ASPARTATE AMINO TRANSFERASE 35 U/L (14-36); BILIRUBIN,DIRECT 0.7 mg/dL (0.0-0.4); BILIRUBIN,TOTAL 1.7 mg/dL (0.2-1.3); BLOOD UREA NITROGEN 11 mg/dL (7-20); CALCIUM 9.7 mg/dL (8.4-10.2); CARBON DIOXIDE 25 mmol/L (22-30); CHLORIDE 103 mmol/L (98-107); GLUCOSE 124 mg/dL (75-110); LIPASE 203.1 U/L (23-300); POTASSIUM 3.5 mmol/L (3.6-5.0); SODIUM 137.4 mmol/L (137-145); TOTAL PROTEIN 6.9 g/dL (6.3-8.2)
[2017-08-11 03:17] LABS: INTERNATIONAL RATION (INR) 2.29; PROTHROMBIN TIME 26.4 SEC (11.4-15.4)
[2017-08-11 03:48] LABS: APPEARANCE,URINE CLEAR; BILIRUBIN,URINE NEGATIVE (NEGATIVE); COLOR,URINE YELLOW; GLUCOSE, URINE NEGATIVE (NEGATIVE); KETONES,URINE NEGATIVE (NEGATIVE); LEUKOCYTE ESTERASE,URINE MODERATE (NEGATIVE); NITRITE,URINE NEGATIVE (NEGATIVE); PROTEIN,URINE NEGATIVE (NEGATIVE); URINE SPECIFIC GRAVITY 1.003; UROBILINOGEN,URINE NEGATIVE mg/dL (<2.0)
[2017-08-11] MEDS ORDERED: CEFTRIAXONE 1 GM/D5W RTU 1 GM/50 ML RTUPB IV ONE ×2 (04:10→22:24)
--- NOTE | 2017-08-11 04:27 | RADIOLOGY REPORT (SQ) ---
EXAM DESCRIPTION: CHEST PA/LAT CLINICAL HISTORY: cough COMPARISON: 08/07/2017 FINDINGS: Frontal and lateral views of the chest. Atherosclerotic calcification and tortuosity of thoracic aorta. Cardiomegaly. Blunting of the right costophrenic angle. Possible small right pleural effusion. Postoperative change in the left axillary region. No displaced rib fractures identified. Upper abdominal soft tissues are unremarkable. IMPRESSION: 1. Possible development of small right pleural effusion. No lobar consolidation identified. 2. Cardiomegaly.
[2017-08-11] MEDS ORDERED: KETOROLAC TROMETHAMINE INJ/PF 30 MG/1 ML SDV IV PRN (05:28)
[2017-08-11] MEDS ORDERED: MAG HYDROX/AL HYDROX/SIMETH SUSP 30 ML UDCUP PO PRN (05:29)
[2017-08-11] MEDS ORDERED: NORMAL SALINE 1000 ML 1,000 ML IV SCH (05:30)
[2017-08-11] MEDS ORDERED: NORMAL SALINE 1000 ML 1,000 ML IV PRN (05:34)
--- NOTE | 2017-08-11 05:48 | RADIOLOGY REPORT (SQ) ---
EXAM DESCRIPTION: CT HEAD WITHOUT CLINICAL HISTORY: fall, persistent vomiting COMPARISON: None available TECHNIQUE: Axial CT of the head obtained from the skull apex to the skull base without contrast. FINDINGS: No acute intracranial hemorrhage identified. No mass, mass effect, shift of the midline, abnormal extra-axial fluid collection or CT evidence of acute ischemic change identified. The ventricular system and sulcal spaces are mildly enlarged compatible with mild cerebral atrophy. Scattered areas of hypodensity throughout the supratentorial white matter are nonspecific and may be related to chronic small vessel ischemic change. The visualized paranasal sinuses and the mastoids are relatively well aerated. No skull fracture identified. Visualized orbits and globes are unremarkable. Atherosclerotic calcification of the intracranial internal carotid arteries. DLP:1162.97 mGy-cm IMPRESSION: 1. No acute intracranial abnormality by CT criteria. This exam was performed according to our departmental dose-optimization program, which includes automated exposure control, adjustment of the mA and/or kV according to patient size and/or use of iterative reconstruction technique.
[2017-08-11] MEDS ORDERED: HEPARIN SOD (PORCINE) 5,000 UNIT/ML 1 ML SYRINGE SUBCUT SCH (06:00)
--- NOTE | 2017-08-11 06:12 | PDOC H&P ---
History of Present Illness Admission Date/PCP: CRISS WATTERS MD Patient complains of: Fever and falls History of Present Illness: LUIS CANALES is a 67 year old female with a past medical history of atrial fibrillation with anticoagulation. Patient presents 4 days after seen in the emergency room with complaints of gastroenteritis with diarrhea and subsequent resolution of the symptoms however has developed fever, lightheadedness upon standing with falls. In the emergency room she is found to be with fever of 100.5, atrial fibrillation with RVR, orthostatic hypotension , leukocytosis and a urinalysis suggestive of UTI. Patient denies recent change in medications she otherwise has felt well denying head injury stiff neck photophobia. In the emergency room she receives empiric antibiotics, IV fluids and referred to the hospitalist for admission. Past Medical History Cardiac Medical History: Reports: Atrial Fibrillation, Coronary Artery Disease, Hyperlipidema, Hypertension Denies: Myocardial Infarction Pulmonary Medical History: Denies: Asthma, Bronchitis, Chronic Obstructive Pulmonary Disease (COPD), Pneumonia Neurological Medical History: Denies: Seizures Endocrine Medical History: Reports: Diabetes Mellitus Type 2 - DIET CONTROLLED Malignancy Medical History: Reports: Breast Cancer GI Medical History: Reports: Gastroesophageal Reflux Disease Musculoskeltal Medical History: Reports: Arthritis Psychiatric Medical History: Denies: Depression Hematology: Denies: Anemia Past Surgical History Past Surgical History: Reports: Appendectomy, Hysterectomy, Tonsillectomy Denies: Pacemaker Social History Information Source: Patient, [facility] Records Lives with: Family Smoking Status: Unknown if Ever Smoked Frequency of Alcohol Use: None Hx Recreational Drug Use: No Hx Prescription Drug Abuse: No - Advance Directive Resuscitation Status: Full Code Family History Family History: DM, Hypertension Parental Family History Reviewed: Yes Children Family History Reviewed: Yes Sibling(s) Family History Reviewed.: Yes Medication/Allergy Home Medications: Carvedilol [Coreg 12.5 mg Tablet] 12.5 mg PO Q12 10/11/14 Furosemide [Lasix 20 mg Tablet] 20 mg PO QAM 10/11/14 Potassium Chloride [Klor-Con 10] 10 meq PO DAILY 10/11/14 Rosuvastatin Calcium [Crestor 20 mg Tablet] 20 mg PO DAILY 10/11/14 Calcium Carb, Citrate/Vit D3 [Calcium + D3 ER Tablet] 1 each PO DAILY 11/28/14 Multivit-Min/Iron/Folic/Lutein [Centrum Silver Women Tablet] 1 each PO DAILY [place]-3 Fatty Acids [[place]-3] 300 mg PO DAILY 03/04/15 Warfarin Sodium [Coumadin 2 mg Tablet] 2 mg PO QHS 03/04/15 Allergies/Adverse Reactions: No Known Allergies Allergy (Verified 08/07/17 16:45) Review of Systems Constitutional: PRESENT: as per HPI, anorexia, fatigue, fever(s), weakness Eyes: ABSENT: visual disturbances Ears: ABSENT: hearing changes Cardiovascular: ABSENT: chest pain, dyspnea on exertion, edema, orthropnea, palpitations Respiratory: ABSENT: cough, hemoptysis Gastrointestinal: ABSENT: abdominal pain, constipation, diarrhea, hematemesis, hematochezia, nausea, vomiting Genitourinary: PRESENT: as per HPI. ABSENT: difficulty urinating, hematuria Musculoskeletal: ABSENT: joint swelling Integumentary: ABSENT: rash, wounds Neurological: ABSENT: abnormal gait, abnormal speech, confusion, dizziness, focal weakness, syncope Psychiatric: ABSENT: anxiety, depression, homidical ideation, suicidal ideation Endocrine: ABSENT: cold intolerance, heat intolerance, polydipsia, polyuria Hematologic/Lymphatic: ABSENT: easy bleeding, easy bruising Physical Exam Vital Signs: Temp Pulse Resp BP Pulse Ox 99.0 F 103 H 16 107/60 95 08/11/17 05:17 08/11/17 05:17 08/11/17 05:17 08/11/17 05:17 08/11/17 05:17 Intake & Output 08/09/17 08/10/17 08/11/17 11:59 11:59 11:59 Weight 72.575 kg General appearance: PRESENT: cooperative, mild distress Head exam: PRESENT: atraumatic, normocephalic Eye exam: PRESENT: conjunctiva pink, EOMI, PERRLA. ABSENT: scleral icterus Ear exam: PRESENT: normal external ear exam Mouth exam: PRESENT: moist, tongue midline Neck exam: ABSENT: carotid bruit, JVD, lymphadenopathy, thyromegaly Respiratory exam: PRESENT: clear to auscultation jessica. ABSENT: rales, rhonchi, wheezes Cardiovascular exam: PRESENT: RRR. ABSENT: diastolic murmur, rubs, systolic murmur Pulses: PRESENT: normal dorsalis pedis pul Vascular exam: PRESENT: normal capillary refill GI/Abdominal exam: PRESENT: normal bowel sounds, soft. ABSENT: distended, guarding, mass, organolmegaly, rebound, tenderness Rectal exam: PRESENT: deferred Extremities exam: PRESENT: full ROM. ABSENT: calf tenderness, clubbing, pedal edema Neurological exam: PRESENT: alert, awake, oriented to person, oriented to place , oriented to time, oriented to situation, CN II-XII grossly intact. ABSENT: motor sensory deficit Psychiatric exam: PRESENT: appropriate affect, normal mood. ABSENT: homicidal ideation, suicidal ideation Skin exam: PRESENT: dry, intact, warm. ABSENT: cyanosis, rash Results Laboratory Results: 08/11/17 02:25 08/11/17 02:25 08/11/17 08/11/17 08/11/17 02:25 02:25 02:25 WBC 13.6 H RBC 4.53 Hgb 13.3 Hct 39.4 MCV 87 MCH 29.3 MCHC 33.7 RDW 14.0 Plt Count 169 Seg Neutrophils % 86.0 H Lymphocytes % 7.9 L Monocytes % 5.8 Eosinophils % 0.0 Basophils % 0.3 Absolute Neutrophils 11.7 H Absolute Lymphocytes 1.1 Absolute Monocytes 0.8 Absolute Eosinophils 0.0 Absolute Basophils 0.0 Sodium 137.4 Potassium 3.5 L Chloride 103 Carbon Dioxide 25 Anion Gap 9 BUN 11 Creatinine 0.90 Est GFR ( Amer) > 60 Est GFR (Non-Af Amer) > 60 Glucose 124 H Lactic Acid 1.2 Calcium 9.7 Total Bilirubin 1.7 H AST 35 ALT 73 H Alkaline Phosphatase 109 Total Protein 6.9 Albumin 3.5 Lipase 203.1 Urine Color Urine Appearance Urine pH Ur Specific [place] Urine Protein Urine Glucose (UA) Urine Ketones Urine Blood Urine Nitrite Ur Leukocyte Esterase Urine WBC (Auto) Urine RBC (Auto) 08/11/17 03:00 WBC RBC Hgb Hct MCV MCH MCHC RDW Plt Count Seg Neutrophils % Lymphocytes % Monocytes % Eosinophils % Basophils % Absolute Neutrophils Absolute Lymphocytes Absolute Monocytes Absolute Eosinophils Absolute Basophils Sodium Potassium Chloride Carbon Dioxide Anion Gap BUN Creatinine Est GFR ( Amer) Est GFR (Non-Af Amer) Glucose Lactic Acid Calcium Total Bilirubin AST ALT Alkaline Phosphatase Total Protein Albumin Lipase Urine Color YELLOW Urine Appearance CLEAR Urine pH 7.0 Ur Specific [place] 1.003 Urine Protein NEGATIVE Urine Glucose (UA) NEGATIVE Urine Ketones NEGATIVE Urine Blood MODERATE H Urine Nitrite NEGATIVE Ur Leukocyte Esterase MODERATE H Urine WBC (Auto) 18 Urine RBC (Auto) 1 01/09/18 02:25 Troponin I 0.013 Impressions: Head CT 08/11/17 02:01 IMPRESSION: 1. No acute intracranial abnormality by CT criteria. This exam was performed according to our departmental dose-optimization program, which includes automated exposure control, adjustment of the mA and/or kV according to patient size and/or use of iterative reconstruction technique. Chest X-Ray 08/11/17 02:19 IMPRESSION: 1. Possible development of small right pleural effusion. No lobar consolidation identified. 2. Cardiomegaly. Assessment & Plan - Diagnosis (1) UTI (urinary tract infection) Is this a current diagnosis for this admission?: Yes Plan: Telemetry observation, empiric antibiotics, follow-up CBC, blood and urine culture (2) Orthostatic hypotension Is this a current diagnosis for this admission?: Yes Plan: IV fluid challenge, BRANDYN stockings and physical therapy (3) Falls Is this a current diagnosis for this admission?: Yes Plan: Fall precautions and physical therapy evaluation (4) Atrial fibrillation Is this a current diagnosis for this admission?: Yes Plan: Currently uncontrolled on Lopressor orthostatic. We will order 1 L of normal saline and transitioned to Cardizem every 8 hours (5) correction current use of anticoagulant therapy Is this a current diagnosis for this admission?: Yes Plan: Continue outpatient regiment - Time Time Spent: 50 to 70 Minutes - Inpatient Certification Medical Necessity: Need Close Monitoring Due to Risk of Patient Decompensation
[2017-08-11] MEDS: DILTIAZEM HCL 60 MG TABLET PO SCH ×3 (06:14→22:15)
[2017-08-11 06:17] LABS: URINE AMPHETAMINES SCREEN NEGATIVE; URINE BARBITURATES SCREEN NEGATIVE; URINE BENZODIAZEPINES SCREEN NEGATIVE; URINE COCAINE SCREEN NEGATIVE; URINE MARIJUANA (THC) SCREEN NEGATIVE; URINE METHADONE SCREEN NEGATIVE; URINE PHENCYCLIDINE SCREEN NEGATIVE
--- NOTE | 2017-08-11 06:40 | EKG REPORT ---
SEVERITY:- ABNORMAL ECG - ATRIAL FIBRILLATION, V-RATE 76-[address]-T CHANGES DIFFUSE. : Confirmed by: Aris Barnhart MD 11-Aug-2017 06:39:57
[2017-08-11] MEDS ORDERED: CARVEDILOL 12.5 MG TABLET PO SCH (10:00)
[2017-08-11] MEDS: DOCUSATE SODIUM 100 MG CAPSULE PO SCH ×2 (13:23→17:39)
--- NOTE | 2017-08-11 14:26 | Physician Advisory Note ---
Physician Advisor ProgressNote .: [facility], I have reviewed the medical record for this patient. Physician Advisor Statement: Please consider documenting, if you agree: 1. " Afib w/RVR" - Chronic? or Paroxysmal? 2. "Falls, likely due to " - we have to explicitly spell out causality; coders aren't allowed to assume anything. 3. Medical necessity: please continue to document each day why, clinically, she has to stay in hospital (see below), unless d/c'ing her. Status: Medicare pt. Appropriately came in as Outpt Observation. Has not spent a MN in hospital yet. Likely to have reasonable chance for d/c on 10. If she is not felt safe for d/c by 1/10 PM, & attending documents medical reasons she is not safe to go home then, then she will be appropriate for change to Inpt status. Thanks! CK Coders: pt did meet SIRS criteria, but in this case, unless attending documents definite clinical suspicion for sepsis, I would assume sepsis was ruled out and not query for it. Per the current documentation, pt just doesn't sound that serious.
[2017-08-11] MEDS: WARFARIN SODIUM 2 MG TABLET PO SCH (22:15)
[2017-08-11] MEDS: ATORVASTATIN CALCIUM 40 MG TABLET PO SCH (22:15)
[2017-08-11] MEDS: CEFTRIAXONE 1 GM/D5W RTU 1 GM/50 ML RTUPB IV SCH (22:30)
[2017-08-11] MEDS: ACETAMINOPHEN 325 MG TABLET PO PRN (22:32)
[2017-08-12] MEDS: DILTIAZEM HCL 60 MG TABLET PO SCH ×3 (05:01→21:46)
[2017-08-12 05:53] LABS: HEMATOCRIT 36.7 % (36.0-47.0); HEMOGLOBIN 12.8 g/dL (12.0-15.5); MEAN CORPUSCULAR HEMOGLOBIN 30.1 pg (27.0-33.4); MEAN CORPUSCULAR HGB CONC 34.9 g/dL (32.0-36.0); MEAN CORPUSCULAR VOLUME 86 fl (80-97); PLATELET COUNT 151 10^3/uL (150-450); RED BLOOD COUNT 4.25 10^6/uL (3.72-5.28); RED CELL DISTRIBUTION WIDTH 13.5 % (11.5-14.0); WHITE BLOOD COUNT 12.5 10^3/uL (4.0-10.5)
[2017-08-12 06:20] LABS: ABSOLUTE LYMPHOCYTES# (MANUAL) 2.4 10^3/uL (0.5-4.7); ABSOLUTE MONOCYTES # (MANUAL) 0.4 10^3/uL (0.1-1.4); ABSOLUTE NEUTROPHILS# (MANUAL) 9.8 10^3/uL (1.7-8.2); BAND NEUTROPHILS % (MANUAL) 1 % (3-5); BASOPHILS % (MANUAL) 0 % (0-2); EOSINOPHILS % (MANUAL) 0 % (0-6); LYMPHOCYTES % (MANUAL) 19 % (13-45); MONOCYTES % (MANUAL) 3 % (3-13); SEGMENTED NEUTROPHILS % (MAN) 77 % (42-78); TOTAL CELLS COUNTED 100
[2017-08-12 06:21] LABS: ANION GAP 8 (5-19); BLOOD UREA NITROGEN 6 mg/dL (7-20); CALCIUM 8.8 mg/dL (8.4-10.2); CARBON DIOXIDE 26 mmol/L (22-30); CHLORIDE 109 mmol/L (98-107); GLUCOSE 101 mg/dL (75-110); SODIUM 142.9 mmol/L (137-145)
[2017-08-12 06:24] LABS: OVALOCYTES SLIGHT; PLATELET COMMENT ADEQUATE; POIKILOCYTOSIS SLIGHT; TOXIC GRANULATION 1+; TOXIC VACUOLATION PRESENT
[2017-08-12 06:25] LABS: POTASSIUM 2.9 mmol/L (3.6-5.0)
[2017-08-12] MEDS ORDERED: POTASSIUM CHLORIDE 10 MEQ TABLET.SA PO ONE (06:32)
[2017-08-12] MEDS: POTASSI CL 20 MEQ/50 ML RIDER 20 MEQ/50 ML RTUPB IV SCH ×2 (07:34→09:59)
[2017-08-12] MEDS: DOCUSATE SODIUM 100 MG CAPSULE PO SCH ×2 (09:56→17:14)
[2017-08-12] MEDS: ACETAMINOPHEN 325 MG TABLET PO PRN (11:41)
[2017-08-12 15:02] LABS: ANION GAP 6 (5-19); BLOOD UREA NITROGEN 4 mg/dL (7-20); CALCIUM 8.6 mg/dL (8.4-10.2); CARBON DIOXIDE 23 mmol/L (22-30); CHLORIDE 111 mmol/L (98-107); GLUCOSE 119 mg/dL (75-110); POTASSIUM 3.8 mmol/L (3.6-5.0); SODIUM 140.3 mmol/L (137-145)
--- NOTE | 2017-08-12 18:03 | PDOC PROGRESS REPORT ---
Subjective Progress Note for:: 08/12/17 Subjective:: No overnight events. Feeling a little better today. Continues to feel weak and dizzy with positional changes. Denies fevers, chills, CP, SOB. Reason For Visit: UTI FALL ORTHOSTATIC HYPTENSION Physical Exam Vital Signs: Temp Pulse Resp BP Pulse Ox 98.2 F 82 18 122/65 96 08/12/17 15:29 08/12/17 15:29 08/12/17 15:29 08/12/17 15:29 08/12/17 15:29 Intake & Output 08/11/17 08/12/17 08/13/17 06:59 06:59 06:59 Intake Total 600 1177 Output Total 1800 900 Balance -1200 277 Weight 76 kg General appearance: PRESENT: no acute distress, other - Resting comfortably in bed, pleasant Mouth exam: PRESENT: moist Respiratory exam: PRESENT: clear to auscultation jessica, unlabored Cardiovascular exam: PRESENT: RRR. ABSENT: systolic murmur GI/Abdominal exam: PRESENT: soft. ABSENT: tenderness Neurological exam: PRESENT: alert, awake, CN II-XII grossly intact Psychiatric exam: PRESENT: appropriate affect Results Laboratory Results: 08/12/17 05:11 08/12/17 14:12 08/12/17 08/12/17 08/12/17 05:11 05:11 05:11 WBC 12.5 H RBC 4.25 Hgb 12.8 Hct 36.7 MCV 86 MCH 30.1 MCHC 34.9 RDW 13.5 Plt Count 151 Seg Neutrophils % Not Reportable Lymphocytes % Not Reportable Monocytes % Not Reportable Eosinophils % Not Reportable Basophils % Not Reportable Absolute Neutrophils Not Reportable Absolute Lymphocytes Not Reportable Absolute Monocytes Not Reportable Absolute Eosinophils Not Reportable Absolute Basophils Not Reportable Sodium 142.9 Potassium 2.9 L* Chloride 109 H Carbon Dioxide 26 Anion Gap 8 BUN 6 L Creatinine 0.67 Est GFR ( Amer) > 60 Est GFR (Non-Af Amer) > 60 Glucose 101 Calcium 8.8 Magnesium 2.3 08/12/17 14:12 WBC RBC Hgb Hct MCV MCH MCHC RDW Plt Count Seg Neutrophils % Lymphocytes % Monocytes % Eosinophils % Basophils % Absolute Neutrophils Absolute Lymphocytes Absolute Monocytes Absolute Eosinophils Absolute Basophils Sodium 140.3 Potassium 3.8 Chloride 111 H Carbon Dioxide 23 Anion Gap 6 BUN 4 L Creatinine 0.59 Est GFR ( Amer) > 60 Est GFR (Non-Af Amer) > 60 Glucose 119 H Calcium 8.6 Magnesium Impressions: Head CT 08/11/17 02:01 IMPRESSION: 1. No acute intracranial abnormality by CT criteria. This exam was performed according to our departmental dose-optimization program, which includes automated exposure control, adjustment of the mA and/or kV according to patient size and/or use of iterative reconstruction technique. Chest X-Ray 08/11/17 02:19 IMPRESSION: 1. Possible development of small right pleural effusion. No lobar consolidation identified. 2. Cardiomegaly. Blood culture (08/11/17), 1/2 bottles positive for GNR, speciation pending Urine culture (08/11/17): GNR, speciation pending Assessment & Plan - Diagnosis (1) UTI (urinary tract infection) Qualifiers: Encounter type: initial encounter Is this a current diagnosis for this admission?: Yes Plan: Aysmptomatic. No history of UTI. - Admission urine culture positive for GNR >100,000 - Will await speciation and sensitivities - Continue ceftriaxone for now, will tailor based on sensi (2) Bacteremia Is this a current diagnosis for this admission?: Yes Plan: Likely urinary source - 1/2 bottles positive for GNR on 08/11 - Will repeat cultures to ensure clearance - Will await speciation - Will need 14 days of antibiotics (3) Weakness Is this a current diagnosis for this admission?: Yes Plan: Likely secondary to infection. Improved today. Will CTM (4) Hypokalemia Is this a current diagnosis for this admission?: Yes Plan: K 2.9 on labs this AM, repleted - Mag villanueva - Repeat K 3.8 @ 12pm - Time Time Spent with patient: 15-24 minutes Within: within 48 hours - Inpatient Certification Medical Necessity: Need for IV Antibiotics
[2017-08-12] MEDS: WARFARIN SODIUM 2 MG TABLET PO SCH (21:46)
[2017-08-12] MEDS: ATORVASTATIN CALCIUM 40 MG TABLET PO SCH (21:46)
[2017-08-12] MEDS ORDERED: CEFTRIAXONE SODIUM 1,000 MG in DEXTROSE 5%-WATER 50 ML IV SCH ×4 (22:00)
[2017-08-13] MEDS: ACETAMINOPHEN 325 MG TABLET PO PRN ×3 (03:55→21:46)
[2017-08-13] MEDS: DILTIAZEM HCL 60 MG TABLET PO SCH ×3 (05:15→21:46)
[2017-08-13 08:11] LABS: HEMATOCRIT 33.7 % (36.0-47.0); HEMOGLOBIN 11.5 g/dL (12.0-15.5); MEAN CORPUSCULAR HEMOGLOBIN 29.5 pg (27.0-33.4); MEAN CORPUSCULAR HGB CONC 34.2 g/dL (32.0-36.0); MEAN CORPUSCULAR VOLUME 86 fl (80-97); PLATELET COUNT 188 10^3/uL (150-450); RED BLOOD COUNT 3.92 10^6/uL (3.72-5.28); RED CELL DISTRIBUTION WIDTH 14.1 % (11.5-14.0); WHITE BLOOD COUNT 13.3 10^3/uL (4.0-10.5)
[2017-08-13 08:36] LABS: ANION GAP 9 (5-19); BLOOD UREA NITROGEN 4 mg/dL (7-20); CALCIUM 8.7 mg/dL (8.4-10.2); CARBON DIOXIDE 23 mmol/L (22-30); CHLORIDE 109 mmol/L (98-107); GLUCOSE 94 mg/dL (75-110); POTASSIUM 3.3 mmol/L (3.6-5.0); SODIUM 140.9 mmol/L (137-145)
[2017-08-13] MEDS ORDERED: POTASSIUM CHLORIDE 10 MEQ TABLET.SA PO ONE (11:00)
[2017-08-13] MEDS: DOCUSATE SODIUM 100 MG CAPSULE PO SCH ×2 (11:37→18:32)
[2017-08-13] MEDS ORDERED: NYSTATIN 500000 UNIT/5 ML UDCUP PO ONE (15:15)
[2017-08-13] MEDS: NYSTATIN 500000 UNIT/5 ML UDCUP PO SCH (18:32)
--- NOTE | 2017-08-13 19:34 | PDOC PROGRESS REPORT ---
Subjective Progress Note for:: 08/13/17 Subjective:: No overnight events. Feeling better. Denies fevers, chills, CP, SOB. Reason For Visit: UTI FALL ORTHOSTATIC HYPTENSION Physical Exam Vital Signs: Temp Pulse Resp BP Pulse Ox 98.0 F 93 12 118/80 95 08/13/17 15:43 08/13/17 15:43 08/13/17 15:43 08/13/17 15:43 08/13/17 18:09 Intake & Output 08/12/17 08/13/17 08/14/17 06:59 06:59 06:59 Intake Total 600 Output Total 1750 Balance -1150 General appearance: PRESENT: no acute distress, other - Sitting up in bedside chair watching TV Head exam: PRESENT: atraumatic, normocephalic Mouth exam: PRESENT: moist Respiratory exam: PRESENT: clear to auscultation jessica, unlabored Cardiovascular exam: PRESENT: RRR. ABSENT: systolic murmur GI/Abdominal exam: PRESENT: soft. ABSENT: tenderness Extremities exam: PRESENT: full ROM Musculoskeletal exam: PRESENT: ambulatory Neurological exam: PRESENT: alert, awake, CN II-XII grossly intact Psychiatric exam: PRESENT: appropriate affect Skin exam: ABSENT: rash Results Impressions: Head CT 08/11/17 02:01 IMPRESSION: 1. No acute intracranial abnormality by CT criteria. This exam was performed according to our departmental dose-optimization program, which includes automated exposure control, adjustment of the mA and/or kV according to patient size and/or use of iterative reconstruction technique. Chest X-Ray 08/11/17 02:19 IMPRESSION: 1. Possible development of small right pleural effusion. No lobar consolidation identified. 2. Cardiomegaly. Assessment & Plan - Diagnosis (1) UTI (urinary tract infection) Qualifiers: Encounter type: initial encounter Is this a current diagnosis for this admission?: Yes Plan: Aysmptomatic. No history of UTI. - Admission urine culture positive for E-coli. GNR >100,000 - Continue ceftriaxone for now, will switch to PO on 08/14 to complete 10 day course - Repeat blood culture negative for growth on 08/12/17 (2) Bacteremia Is this a current diagnosis for this admission?: Yes (3) Weakness Is this a current diagnosis for this admission?: Yes Plan: Likely secondary to infection. Improved today. Will CTM - Evaluated by PT today (4) Hypokalemia Is this a current diagnosis for this admission?: Yes Plan: K 3.3, repleted with KCl - Time Time Spent with patient: Less than 15 minutes Within: within 24 hours
[2017-08-13] MEDS: WARFARIN SODIUM 2 MG TABLET PO SCH (21:46)
[2017-08-13] MEDS ORDERED: ATORVASTATIN CALCIUM 40 MG TABLET PO SCH (22:00)
[2017-08-13] MEDS ORDERED: ATORVASTATIN CALCIUM 20 MG TABLET PO SCH (22:00)
[2017-08-14] MEDS: DILTIAZEM HCL 60 MG TABLET PO SCH ×2 (05:09→13:13)
[2017-08-14 06:51] LABS: HEMATOCRIT 33.3 % (36.0-47.0); HEMOGLOBIN 11.3 g/dL (12.0-15.5); MEAN CORPUSCULAR HEMOGLOBIN 29.4 pg (27.0-33.4); MEAN CORPUSCULAR VOLUME 86 fl (80-97); PLATELET COUNT 239 10^3/uL (150-450); RED BLOOD COUNT 3.85 10^6/uL (3.72-5.28); RED CELL DISTRIBUTION WIDTH 13.9 % (11.5-14.0); WHITE BLOOD COUNT 12.8 10^3/uL (4.0-10.5)
[2017-08-14 06:59] LABS: INTERNATIONAL RATION (INR) 3.32; PROTHROMBIN TIME 35.2 SEC (11.4-15.4)
[2017-08-14 07:10] LABS: ANION GAP 9 (5-19); BLOOD UREA NITROGEN 4 mg/dL (7-20); CALCIUM 8.6 mg/dL (8.4-10.2); CARBON DIOXIDE 24 mmol/L (22-30); CHLORIDE 106 mmol/L (98-107); GLUCOSE 98 mg/dL (75-110); POTASSIUM 3.4 mmol/L (3.6-5.0); SODIUM 139.4 mmol/L (137-145)
[2017-08-14] MEDS: DOCUSATE SODIUM 100 MG CAPSULE PO SCH (09:44)
[2017-08-14] MEDS: NYSTATIN 500000 UNIT/5 ML UDCUP PO SCH ×2 (09:47→13:14)
[2017-08-14] MEDS ORDERED: AMOXICILLIN TR/POT CLAVULANATE 500-125 MG TAB PO SCH (10:00)
[2017-08-14 12:28] VITALS: BP 102/52
[2017-08-14] MEDS ORDERED: POTASSIUM CHLORIDE 10 MEQ TABLET.SA PO ONE (13:30)
--- NOTE | 2017-08-14 20:52 | PDOC DISCHARGE SUMMARY ---
General - Admit/Disc Date/PCP Admission Date/Primary Care Provider: 08/13/17 10:10 CRISS WATTERS MD Discharge Date: 08/14/17 - Discharge Diagnosis (1) UTI (urinary tract infection) Is this a current diagnosis for this admission?: Yes Summary: Presented with weakness. No urinary symptoms. No history of UTI. - Admission urine culture positive for E-coli. GNR >100,000 - Received ceftriaxone until 08/13, transitioned to Augmentin for 7 additional days given positive blood cultures - Repeat blood culture negative for growth on 08/12/17 (2) Bacteremia Is this a current diagnosis for this admission?: Yes Summary: Secondary to UTI. Repeat blood cx negative. Afebrile and HDS at discharge (3) Weakness Is this a current diagnosis for this admission?: Yes Summary: Secondary to infection. Improved today. Will CTM (4) Hypokalemia Is this a current diagnosis for this admission?: Yes Summary: K 3.4 on 08/14. Gave additional KCl PO prior to discharge. - Additional Information Resuscitation Status: Full Code Discharge Diet: Cardiac Discharge Activity: Activity As Tolerated Prescriptions: Amox Tr/Potassium Clavulanate [Augmentin "500" Tablet] 1 tab PO BID 7 Days #14 tablet Home Medications: Calcium Carbonate/Vitamin D3 [Calcium 500-Vit D3 200 Caplet] 1 tab PO DAILY 04/20 Carboxymethylcellulose Sodium [Refresh Celluvisc Drops] 1 drop OU Q6HP PRN 08/11 Carvedilol [Coreg 12.5 mg Tablet] 12.5 mg PO Q12 08/11/17 Cyclosporine [Restasis Droperette] 1 drop OU Q12 08/11/17 Diltiazem HCl [Diltiazem 24Hr Cd] 240 mg PO DAILY 08/11/17 Furosemide [Lasix 20 mg Tablet] 20 mg PO DAILY 08/11/17 Pantoprazole Sodium [Protonix] 40 mg PO DAILY 08/11/17 Rosuvastatin Calcium [Crestor] 20 mg PO QHS 08/11/17 Warfarin Sodium [Coumadin] 2 mg PO QPM 08/11/17 Amox Tr/Potassium Clavulanate [Augmentin "500" Tablet] 1 tab PO BID 7 Days #14 tablet 08/14/17 History of Present Illness History of Present Illness: MATSUYO Y KRALEVICH is a 67 year old female with a past medical history of atrial fibrillation with anticoagulation. Patient presents 4 days after seen in the emergency room with complaints of gastroenteritis with diarrhea and subsequent resolution of the symptoms however has developed fever, lightheadedness upon standing with falls. In the emergency room she is found to be with fever of 100.5, atrial fibrillation with RVR, orthostatic hypotension , leukocytosis and a urinalysis suggestive of UTI. Patient denies recent change in medications she otherwise has felt well denying head injury stiff neck photophobia. In the emergency room she receives empiric antibiotics, IV fluids and referred to the hospitalist for admission. Hospital Course Hospital Course: Per above. Physical Exam Vital Signs: Temp Pulse Resp BP Pulse Ox 98.2 F 109 H 18 102/52 L 96 08/14/17 12:23 08/14/17 12:23 08/14/17 12:23 08/14/17 12:23 08/14/17 12:23 Intake & Output 08/13/17 08/14/17 08/15/17 06:59 06:59 06:59 Intake Total 1560 Output Total 2900 Balance -1340 Weight 74.9 kg General appearance: PRESENT: no acute distress, well-developed, well-nourished, other - Sitting up in bedside chair, interactive and bright Head exam: PRESENT: normocephalic Mouth exam: PRESENT: moist Cardiovascular exam: PRESENT: irregular rhythm. ABSENT: systolic murmur, tachycardia GI/Abdominal exam: PRESENT: soft. ABSENT: tenderness Neurological exam: PRESENT: alert, awake, CN II-XII grossly intact Psychiatric exam: PRESENT: appropriate affect Skin exam: PRESENT: dry Results Laboratory Results: 08/14/17 05:42 08/14/17 05:42 08/14/17 08/14/17 05:42 05:42 WBC 12.8 H RBC 3.85 Hgb 11.3 L Hct 33.3 L MCV 86 MCH 29.4 MCHC 34.0 RDW 13.9 Plt Count 239 Sodium 139.4 Potassium 3.4 L Chloride 106 Carbon Dioxide 24 Anion Gap 9 BUN 4 L Creatinine 0.57 Est GFR ( Amer) > 60 Est GFR (Non-Af Amer) > 60 Glucose 98 Calcium 8.6 Impressions: Head CT 08/11/17 02:01 IMPRESSION: 1. No acute intracranial abnormality by CT criteria. This exam was performed according to our departmental dose-optimization program, which includes automated exposure control, adjustment of the mA and/or kV according to patient size and/or use of iterative reconstruction technique. Chest X-Ray 08/11/17 02:19 IMPRESSION: 1. Possible development of small right pleural effusion. No lobar consolidation identified. 2. Cardiomegaly. Plan Time Spent: Less than 30 Minutes
== END 2017-08-14 13:45 | disposition home or self-care (01) | DRG 690 ==
LOC: ER 00:15 → EH 06:21 → 4S 12:55 → OBSVTOIN 08-13 10:10
PROVIDERS: ADMIT Internal Medicine; ATTEND Internal Medicine
DX: N39.0 Urinary tract infection, site not specified (principal); R78.81 Bacteremia; B96.20 Unspecified Escherichia coli [E. coli] as the cause of diseases classified elsewhere; E87.6 Hypokalemia; I48.91 Unspecified atrial fibrillation; I95.1 Orthostatic hypotension; I25.10 Atherosclerotic heart disease of native coronary artery without angina pectoris; W19.XXXA Unspecified fall, initial encounter; E78.5 Hyperlipidemia, unspecified; I10 Essential (primary) hypertension; E11.9 Type 2 diabetes mellitus without complications; K21.9 Gastro-esophageal reflux disease without esophagitis; M19.90 Unspecified osteoarthritis, unspecified site; E78.00 Pure hypercholesterolemia, unspecified; Z90.12 Acquired absence of left breast and nipple; Z79.01 Long term (current) use of anticoagulants; Z79.899 Other long term (current) drug therapy; Z91.81 History of falling; Z85.3 Personal history of malignant neoplasm of breast; Z90.710 Acquired absence of both cervix and uterus; Z83.3 Family history of diabetes mellitus; Z82.49 Family history of ischemic heart disease and other diseases of the circulatory system
CPT/HCPCS: 36415; 51701; 70450; 71046; 80048; 80053; 80307; 81001; 83605; 83690; 83735; 84484; 85025; 85027; 85610; 87040; 87077; 87086; 87088; 87186; 93005; 93010; 96361; 96365; 96375; 99285; G0378; G8978-GP; G8979-GP; J0696; J2405; J3480; J3490; J7030

== ENCOUNTER → 2017-08-17 | Outpatient (CLI) | payer MEDICARE, OTHER ==
[2017-08-17 12:25] LABS: INTERNATIONAL RATION (INR) 3.05
== END ==
LOC: OD 10:54
PROVIDERS: ATTEND Internal Medicine Cardiovascular Disease
DX: Z51.81 Encounter for therapeutic drug level monitoring (principal); Z79.01 Long term (current) use of anticoagulants; Z79.899 Other long term (current) drug therapy
CPT/HCPCS: 36415; 85610

== ENCOUNTER 2017-08-27 16:39 | Emergency (ER) | payer MEDICARE, OTHER ==
--- NOTE | 2017-08-27 18:46 | ER Document Report ---
ED Medical Screen (RME) - General Mode of Arrival: Ambulatory Information source: Patient TRAVEL OUTSIDE OF THE [place] IN LAST 30 DAYS: No <JACKIE JUNG - Last Filed: 08/27/17 18:54> <BERNARDINO MEADE - Last Filed: 08/28/17 01:14> - General Chief Complaint: Cough Stated Complaint: COUGH Time Seen by Provider: 08/27/17 18:37 Notes: Patient is a 67 year old female who was sent to the emergency department by Dr. Barnhart due to low potassium and low blood pressure onset today. Patient states that she has been feeling weak lately and her blood pressure has been in the 90/ 40s which is abnormal due it normally being in the 120/70s. Patient also complains of red urine and productive cough with clear sputum onset 2 weeks. Patient denies any bloody stool. Patient was recently discharged from emergency department due to an UTI. Patient is currently on Coumadin. (JACKIE JUNG) - Related Data Allergies/Adverse Reactions: No Known Allergies Allergy (Verified 08/07/17 16:45) Past Medical History - General Information source: Patient - Past Medical History Cardiac Medical History: Reports: Hx Atrial Fibrillation, Hx Coronary Artery Disease, Hx Hypercholesterolemia, Hx Hypertension Endocrine Medical History: Reports: Hx Diabetes Mellitus Type 2 - DIET CONTROLLED Renal/ Medical History: Denies: Hx Peritoneal Dialysis Malignancy Medical History: Reports: Hx Breast Cancer GI Medical History: Reports: Hx Gastroesophageal Reflux Disease Musculoskeltal Medical History: Reports Hx Arthritis Past Surgical History: Reports: Hx Appendectomy, Hx Breast Surgery - left mastectomy, Hx Hysterectomy, Hx Tonsillectomy - Immunizations Hx Diphtheria, Pertussis, Tetanus Vaccination: Yes History of Influenza Vaccine for 05/2017 - 10/2017 Season: Yes Influenza Administration Date for 05/2017 - 10/2017 Season: 04/03/17 <JACKIE JUNG - Last Filed: 08/27/17 18:54> Review of Systems - Review of Systems Constitutional: See HPI, Weakness EENT: No symptoms reported Cardiovascular: No symptoms reported Respiratory: See HPI, Cough Gastrointestinal: No symptoms reported Genitourinary: No symptoms reported Female Genitourinary: No symptoms reported Musculoskeletal: No symptoms reported Skin: No symptoms reported Hematologic/Lymphatic: No symptoms reported Neurological/Psychological: No symptoms reported -: Yes All other systems reviewed and negative <JACKIE JUNG - Last Filed: 08/27/17 18:54> Physical Exam <JACKIE JUNG - Last Filed: 08/27/17 18:54> <MEADE,BERNARDINO - Last Filed: 08/28/17 01:14> - Vital signs Vitals: Pulse Ox 97 08/28/17 00:42 - Notes Notes: GENERAL: Alert, interacts well. No acute distress. HEAD: Normocephalic, atraumatic. EYES: Appear normal. Pupils equal, round, and reactive to light. ENT: Moist mucus membranes, tongue midline. Clear orophranyx. NECK: Full range of motion. Supple. Trachea midline. LUNGS: Clear to auscultation bilaterally, no wheezes, rales, or rhonchi. No respiratory distress. HEART: Irregular irregular. No murmurs, gallops, or rubs. EXTREMITIES: Moves all 4 extremities spontaneously. NEUROLOGICAL: Alert and oriented x3. Normal speech. PSYCH: Normal affect, normal mood. SKIN: Warm, dry, normal turgor. No rashes or lesions noted. (JACKIE JUNG) Course <JACKIE JUNG - Last Filed: 08/27/17 18:54> - Laboratory Result Diagrams: 08/27/17 19:41 08/27/17 19:41 <BERNARDINO MEADE - Last Filed: 08/28/17 01:14> - Vital Signs Vital signs: Temp Pulse Resp BP Pulse Ox 97 08/28/17 00:45 - Laboratory Laboratory results interpreted by me: 08/27/17 08/27/17 08/27/17 19:41 19:41 19:41 WBC 11.5 H Plt Count 521 H Absolute Neutrophils 8.6 H PT Sodium 136.8 L Glucose 117 H AST 64 H ALT 83 H Alkaline Phosphatase 140 H NT-Pro-B Natriuret Pep 1400 H Albumin 3.3 L Urine Protein Urine Urobilinogen Ur Leukocyte Esterase Urine Ascorbic Acid 08/27/17 08/27/17 19:41 19:41 WBC Plt Count Absolute Neutrophils PT 33.7 H Sodium Glucose AST ALT Alkaline Phosphatase NT-Pro-B Natriuret Pep Albumin Urine Protein 30 H Urine Urobilinogen 2.0 H Ur Leukocyte Esterase TRACE H Urine Ascorbic Acid 40 H - EKG Interpretation by Me Additional EKG results interpreted by me: 08/28/17 00:44 EKG is reviewed and interpreted by me. EKG shows A. fib with rate of [address] segment elevation or depression. No ischemic T-wave inversions. QRS duration and QTc intervals are within normal range. Old EKG for comparison is from August 11, 2017. (BERNARDINO MEADE) Doctor's Discharge <JACKIE JUNG - Last Filed: 08/27/17 18:54> <BERNARDINO MEADE - Last Filed: 08/28/17 01:14> - Discharge Clinical Impression: Hypotension Qualifiers: Hypotension type: unspecified hypotension type Qualified Code(s): I95.9 - Hypotension, unspecified Condition: Good Disposition: HOME, SELF-CARE Additional Instructions: Please continue to take your Fruosemide. Please Referrals: CRISS WATTERS MD [Primary Care Provider] - Follow up as needed Scribe Documentation - Scribe Written by Scribe:: Jenifer Hope, 08/27/2017 18:58 acting as scribe for :: Michael <JACKIE JUNG - Last Filed: 08/27/17 18:54>
[2017-08-27] MEDS ORDERED: NORMAL SALINE 1000 ML 500 ML IV PRN (18:49)
--- NOTE | 2017-08-27 19:40 | RADIOLOGY REPORT (SQ) ---
EXAM DESCRIPTION: CHEST SINGLE VIEW COMPLETED DATE/TIME: 08/27/2017 7:22 pm REASON FOR STUDY: cough and congestion COMPARISON: 08/11/2017 EXAM PARAMETERS: NUMBER OF VIEWS: One view. TECHNIQUE: Single frontal radiographic view of the chest acquired. RADIATION DOSE: NA LIMITATIONS: None. FINDINGS: LUNGS AND PLEURA: Increased right pleural effusion. Mild right basilar subsegmental atele ctasis. Left lung appears clear. MEDIASTINUM AND HILAR STRUCTURES: Stable. HEART AND VASCULAR STRUCTURES: Stable. BONES: No acute findings. HARDWARE: Left axillary surgical clips -left mastectomy. OTHER: No other significant finding. IMPRESSION: Increased right pleural effusion. Mild right basilar subsegmental atelectasis. TECHNICAL DOCUMENTATION: JOB ID: [id number] [employer]- All Rights Reserved
[2017-08-27 20:08] LABS: ABSOLUTE BASOPHILS # (AUTO) 0.1 10^3/uL (0.0-0.2); ABSOLUTE EOSINOPHILS # (AUTO) 0.1 10^3/uL (0.0-0.6); ABSOLUTE LYMPHOCYTES (AUTO) 1.6 10^3/uL (0.5-4.7); ABSOLUTE MONOCYTES (AUTO) 1.1 10^3/uL (0.1-1.4); ABSOLUTE NEUT (AUTO) 8.6 10^3/uL (1.7-8.2); BASOPHILS % (AUTO) 0.9 % (0-2); EOSINOPHILS % (AUTO) 0.5 % (0-6); HEMOGLOBIN 12.2 g/dL (12.0-15.5); LYMPHOCYTES % (AUTO) 14.1 % (13-45); MEAN CORPUSCULAR HEMOGLOBIN 29.2 pg (27.0-33.4); MEAN CORPUSCULAR HGB CONC 33.8 g/dL (32.0-36.0); MEAN CORPUSCULAR VOLUME 86 fl (80-97); MONOCYTES % (AUTO) 9.3 % (3-13); PLATELET COUNT 521 10^3/uL (150-450); RED BLOOD COUNT 4.18 10^6/uL (3.72-5.28); RED CELL DISTRIBUTION WIDTH 13.9 % (11.5-14.0); SEGMENTED NEUTROPHILS % (AUTO) 75.2 % (42-78); TOTAL CELLS COUNTED % (AUTO) 100 %; WHITE BLOOD COUNT 11.5 10^3/uL (4.0-10.5)
[2017-08-27 20:19] LABS: INTERNATIONAL RATION (INR) 3.13; PROTHROMBIN TIME 33.7 SEC (11.4-15.4)
[2017-08-27 20:26] LABS: ALANINE AMINOTRANSFERASE 83 U/L (9-52); ALBUMIN 3.3 g/dL (3.5-5.0); ALKALINE PHOSPHATASE 140 U/L (38-126); ANION GAP 9 (5-19); ASPARTATE AMINO TRANSFERASE 64 U/L (14-36); BILIRUBIN,DIRECT 0.3 mg/dL (0.0-0.4); BILIRUBIN,TOTAL 0.7 mg/dL (0.2-1.3); BLOOD UREA NITROGEN 7 mg/dL (7-20); CALCIUM 9.5 mg/dL (8.4-10.2); CARBON DIOXIDE 30 mmol/L (22-30); CHLORIDE 98 mmol/L (98-107); GLUCOSE 117 mg/dL (75-110); MAGNESIUM 2.1 mg/dL (1.6-2.3); POTASSIUM 3.8 mmol/L (3.6-5.0); SODIUM 136.8 mmol/L (137-145)
[2017-08-27 20:38] LABS: TROPONIN I 0.015 ng/mL
[2017-08-28 00:16] LABS: APPEARANCE,URINE SLIGHTLY-CLOUDY; BILIRUBIN,URINE NEGATIVE (NEGATIVE); COLOR,URINE YELLOW; GLUCOSE, URINE NEGATIVE (NEGATIVE); KETONES,URINE NEGATIVE (NEGATIVE); LEUKOCYTE ESTERASE,URINE TRACE (NEGATIVE); NITRITE,URINE NEGATIVE (NEGATIVE); PROTEIN,URINE 30 mg/dL (NEGATIVE); URINE SPECIFIC GRAVITY 1.014
--- NOTE | 2017-08-28 01:21 | ER Document Report ---
ED General - General Chief Complaint: Cough Stated Complaint: COUGH Time Seen by Provider: 08/27/17 18:37 Mode of Arrival: Ambulatory Notes: Patient is a 67-year-old female presents to the ER because of 2 weeks of cough and also she has been dizzy since she was discharged from hospital. She was admitted to the hospital and discharged roughly 2 weeks ago due to urinary tract infection and A. fib with RVR. She says her A. fib rate has been under control but her blood pressures been running a bit low. She says that her manager functional, Dr. Agee, told her to stop her Lasix. Patient says after stopping Lasix her breathing started to worsen her coughing start get worse. She says a few days ago she restarted her Lasix and now her cough and breathing is starting to improve. She called Dr. Agee today because she noticed that her blood pressure still tends to run in the 90s and this is making her lightheaded. She held her nighttime carvedilol dose and than called Dr. Agee who told her to never hold that medication and to come to the ER. Patient's blood pressure is now improved after holding the carvedilol. She is also on Coumadin. She has no other complaints this time. She denies any focal weakness or numbness. No headache. No recurrent fevers or infections since being discharged from the hospital. TRAVEL OUTSIDE OF THE [place] IN LAST 30 DAYS: No - Related Data Allergies/Adverse Reactions: No Known Allergies Allergy (Verified 08/07/17 16:45) Past Medical History - General Information source: Patient - Social History Smoking Status: Never Smoker Chew tobacco use (# tins/day): No Frequency of alcohol use: None Drug Abuse: None Family History: DM, Hypertension Patient has suicidal ideation: No Patient has homicidal ideation: No - Past Medical History Cardiac Medical History: Reports: Hx Atrial Fibrillation, Hx Coronary Artery Disease, Hx Hypercholesterolemia, Hx Hypertension Denies: Hx Heart Attack Pulmonary Medical History: Denies: Hx Asthma, Hx Bronchitis, Hx COPD, Hx Pneumonia Neurological Medical History: Denies: Hx Cerebrovascular Accident, Hx Seizures Endocrine Medical History: Reports: Hx Diabetes Mellitus Type 2 - DIET CONTROLLED Renal/ Medical History: Denies: Hx Peritoneal Dialysis Malignancy Medical History: Reports: Hx Breast Cancer GI Medical History: Reports: Hx Gastroesophageal Reflux Disease Musculoskeltal Medical History: Reports Hx Arthritis Psychiatric Medical History: Denies: Hx Depression Past Surgical History: Reports: Hx Appendectomy, Hx Breast Surgery - left mastectomy, Hx Hysterectomy, Hx Tonsillectomy. Denies: Hx Pacemaker - Immunizations Hx Diphtheria, Pertussis, Tetanus Vaccination: Yes Hx Pneumococcal Vaccination: 04/03/06 Review of Systems - Review of Systems Notes: My Normal Review Basic REVIEW OF SYSTEMS: CONSTITUTIONAL : Denies fever, chills, or sweats. Denies recent illness. EENT: Denies eye, ear, throat, or mouth pain or symptoms. Denies nasal or sinus congestion. CARDIOVASCULAR: Denies chest pain. RESPIRATORY: Some cough and some difficulty breathing which has since improved since restarting Lasix. GASTROINTESTINAL: Denies abdominal pain. Denies nausea, vomiting, or diarrhea. Denies constipation. Last BM: GENITOURINARY: Denies difficulty urinating, painful urination, burning, frequency, or blood in urine. MUSCULOSKELETAL: Denies neck or back pain or joint pain or swelling. SKIN: Denies rash or skin lesions. NEUROLOGICAL: Dizziness and lightheadedness. Denies headache. Denies weakness or paralysis or loss of use of either side. Denies problems with gait or speech. Denies sensory or motor loss. PSYCHIATRIC: Denies anxiety or stress or depression. ALL OTHER SYSTEMS REVIEWED AND NEGATIVE. Physical Exam - Vital signs Vitals: Pulse Ox 97 08/28/17 00:42 - Notes Notes: General Appearance: Well nourished, alert, cooperative, no acute distress, no obvious discomfort. Well-appearing. Vitals: reviewed, See vital signs table. Head: no swelling or tenderness to the head Eyes: PERRL, EOMI, Conjuctiva clear Mouth: No decreasd moisture Throat: No tonsillar inflammation, No airway obstruction, No lymphadenopathy Neck: Supple, no neck tenderness, No thyromegaly Lungs: No wheezing, No rales, No rhonci, No accessory muscle use, good air exchange bilaterally. Heart: Normal rate, Regular rythm, No murmur, no rub Abdomen: Normal BS, soft, No rigidity, No abdominal tenderness, No guarding, no rebound, no abdominal masses, no organomegaly Extremities: strength 5/5 in all extremities, good pulses in all extremities, no swelling or tenderness in the extremities, no edema. Skin: warm, dry, appropriate color, no rash Neuro: speech clear, oriented x 3, normal affect, responds appropriately to questions. Cranial nerves II through XII are intact. Patient moves all extremities without difficulty. No focal weakness or numbness on exam. Distal sensation intact. Course - Re-evaluation Re-evalutation: 08/28/17 06:10 Patient is on Coreg for history of CHF and A. fib. She is also on Cardizem in the morning. We will first try to cut her Cardizem in half. I did inform the patient that there is always a chance that her heart rate could start to increase after cutting the Cardizem and half. I informed her that if she starts having a rapid heartbeat that she should return to the ER for evaluation. She says that Dr. Agee informed her not to stop the Coreg under any circumstances; therfore, we will leave this medication at 12.5 mg twice a day. Hopefully decrease the Cardizem or allow her blood pressure to run a little bit higher. I informed her to return to ER immediately if she has difficulty breathing, rapid heartbeat, chest pain, low blood pressure, syncopal episode, recurrent dizziness. I encourage her to follow-up closely with Dr. Agee. Patient agrees with plan will be discharged home. Dictation of this chart was performed using voice recognition software; therefore, there may be some unintended grammatical errors. - Vital Signs Vital signs: Temp Pulse Resp BP Pulse Ox 98.6 F 20 127/64 H 98 08/28/17 01:01 08/28/17 01:01 08/28/17 01:01 08/28/17 01:01 - Laboratory Result Diagrams: 08/27/17 19:41 08/27/17 19:41 Laboratory results interpreted by me: 08/27/17 08/27/17 08/27/17 19:41 19:41 19:41 WBC 11.5 H Plt Count 521 H Absolute Neutrophils 8.6 H PT Sodium 136.8 L Glucose 117 H AST 64 H ALT 83 H Alkaline Phosphatase 140 H NT-Pro-B Natriuret Pep 1400 H Albumin 3.3 L Urine Protein Urine Urobilinogen Ur Leukocyte Esterase Urine Ascorbic Acid 08/27/17 08/27/17 19:41 19:41 WBC Plt Count Absolute Neutrophils PT 33.7 H Sodium Glucose AST ALT Alkaline Phosphatase NT-Pro-B Natriuret Pep Albumin Urine Protein 30 H Urine Urobilinogen 2.0 H Ur Leukocyte Esterase TRACE H Urine Ascorbic Acid 40 H - EKG Interpretation by Me Additional EKG results interpreted by me: 08/28/17 01:22 EKG is reviewed and interpreted by me. EKG shows A. fib with rate of [address] segment elevation or depression. No ischemic T-wave inversions. QRS duration and QTc intervals are within normal range. Old EKG for comparison is from August 11, 2017. Discharge - Discharge Clinical Impression: Hypotension Qualifiers: Hypotension type: unspecified hypotension type Qualified Code(s): I95.9 - Hypotension, unspecified Atrial fibrillation Qualifiers: Atrial fibrillation type: chronic Qualified Code(s): I48.2 - Chronic atrial fibrillation Condition: Good Disposition: HOME, SELF-CARE Additional Instructions: Please continue to take your Furosemide. Please cut your diltiazem in half. Hopefully this will help your blood pressure to remain normal. It is also possible that your heart rate could increase since we are cutting this medication in half. Please return to the ER immediately if you have increasing heart rate. Please return to the ER immediately if you have chest pain, difficulty breathing, or feel unwell. Please call Dr. Agee to inform him of the medication changes. Referrals: CRISS WATTERS MD [Primary Care Provider] - Follow up in 3-5 days VIDAL AGEE MD [EMERITUS] - 08/28/17
[2017-08-28 01:56] VITALS: BP 127/64
--- NOTE | 2017-08-28 07:40 | EKG REPORT ---
SEVERITY:- ABNORMAL ECG - ATRIAL FIBRILLATION BORDERLINE T ABNORMALITIES, INFERIOR LEADS : Confirmed by: Saumya Jin MD 28-Aug-2017 07:38:54
== END 2017-08-28 01:30 | disposition home or self-care (01) ==
LOC: ER 16:39
DX: I95.9 Hypotension, unspecified (principal); I48.2 Chronic atrial fibrillation; R05 Cough; R42 Dizziness and giddiness; Z79.899 Other long term (current) drug therapy
CPT/HCPCS: 93005; 99284; 96360; 36415; 83735; 85025; 85610; 80053; 81001; 84484; 83880; 71045; 93010; J7030

== ENCOUNTER → 2017-08-27 | Outpatient (CLI) | payer MEDICARE, OTHER ==
[2017-08-27 09:43] LABS: INTERNATIONAL RATION (INR) 2.97; PROTHROMBIN TIME 32.3 SEC (11.4-15.4)
[2017-08-27 10:33] LABS: ANION GAP 9 (5-19); BLOOD UREA NITROGEN 5 mg/dL (7-20); CALCIUM 9.2 mg/dL (8.4-10.2); CARBON DIOXIDE 29 mmol/L (22-30); CHLORIDE 101 mmol/L (98-107); GLUCOSE 132 mg/dL (75-110); POTASSIUM 3.3 mmol/L (3.6-5.0); SODIUM 139.4 mmol/L (137-145)
== END ==
LOC: OD 08:37
PROVIDERS: ATTEND Internal Medicine Cardiovascular Disease
DX: I48.1 Persistent atrial fibrillation (principal); R06.02 Shortness of breath; N17.9 Acute kidney failure, unspecified; I50.42 Chronic combined systolic (congestive) and diastolic (congestive) heart failure
CPT/HCPCS: 36415; 80048; 83880; 85610

== ENCOUNTER → 2017-09-02 | Outpatient (CLI) | payer MEDICARE, OTHER ==
[2017-09-02 09:06] LABS: ABSOLUTE BASOPHILS # (AUTO) 0.1 10^3/uL (0.0-0.2); ABSOLUTE EOSINOPHILS # (AUTO) 0.1 10^3/uL (0.0-0.6); ABSOLUTE LYMPHOCYTES (AUTO) 1.5 10^3/uL (0.5-4.7); ABSOLUTE MONOCYTES (AUTO) 0.8 10^3/uL (0.1-1.4); ABSOLUTE NEUT (AUTO) 6.4 10^3/uL (1.7-8.2); EOSINOPHILS % (AUTO) 1.2 % (0-6); HEMATOCRIT 34.6 % (36.0-47.0); HEMOGLOBIN 11.7 g/dL (12.0-15.5); LYMPHOCYTES % (AUTO) 16.8 % (13-45); MEAN CORPUSCULAR HEMOGLOBIN 29.3 pg (27.0-33.4); MEAN CORPUSCULAR HGB CONC 33.8 g/dL (32.0-36.0); MEAN CORPUSCULAR VOLUME 87 fl (80-97); MONOCYTES % (AUTO) 9.3 % (3-13); PLATELET COUNT 450 10^3/uL (150-450); RED CELL DISTRIBUTION WIDTH 14.2 % (11.5-14.0); SEGMENTED NEUTROPHILS % (AUTO) 71.7 % (42-78); TOTAL CELLS COUNTED % (AUTO) 100 %; WHITE BLOOD COUNT 8.9 10^3/uL (4.0-10.5)
[2017-09-02 09:11] LABS: INTERNATIONAL RATION (INR) 2.46; PROTHROMBIN TIME 27.9 SEC (11.4-15.4)
--- NOTE | 2017-09-02 09:23 | RADIOLOGY REPORT (SQ) ---
EXAM DESCRIPTION: CHEST PA/LATERAL COMPLETED DATE/TIME: 09/02/2017 9:04 am REASON FOR STUDY: PLEURAL EFFUSION IN OTHER CONDITIONS CLASSIFIED ELSEWHERE,SOB,COUGH COMPARISON: 08/27/2017. EXAM PARAMETERS: NUMBER OF VIEWS: two views TECHNIQUE: Digital Frontal and Lateral radiographic views of the chest acquired. RADIATION DOSE: NA LIMITATIONS: none FINDINGS: LUNGS AND PLEURA: There is evidence of a right pleural effusion with right basilar atelect asis. MEDIASTINUM AND HILAR STRUCTURES: No masses or contour abnormalities. HEART AND VASCULAR STRUCTURES: The heart is borderline in size. The pulmonary vasculature is normal. BONES: Dorsal spondylosis is seen. HARDWARE: None in the chest. OTHER: Changes of a left mastectomy. Surgical clips left axilla. IMPRESSION: Right basilar atelectasis and right pleural effusion. Status post left mastectomy. No significant interval change. TECHNICAL DOCUMENTATION: JOB ID: [id number] [employer]- All Rights Reserved
[2017-09-02 09:24] LABS: ALANINE AMINOTRANSFERASE 41 U/L (9-52); ALBUMIN 3.2 g/dL (3.5-5.0); ALKALINE PHOSPHATASE 118 U/L (38-126); ANION GAP 8 (5-19); ASPARTATE AMINO TRANSFERASE 25 U/L (14-36); BILIRUBIN,DIRECT 0.4 mg/dL (0.0-0.4); BILIRUBIN,TOTAL 0.5 mg/dL (0.2-1.3); BLOOD UREA NITROGEN 5 mg/dL (7-20); CALCIUM 9.6 mg/dL (8.4-10.2); CARBON DIOXIDE 31 mmol/L (22-30); CHLORIDE 103 mmol/L (98-107); GLUCOSE 113 mg/dL (75-110); POTASSIUM 3.9 mmol/L (3.6-5.0); SODIUM 141.5 mmol/L (137-145); TOTAL PROTEIN 6.8 g/dL (6.3-8.2)
== END ==
LOC: OD 08:39
PROVIDERS: ATTEND Internal Medicine Cardiovascular Disease
DX: R94.5 Abnormal results of liver function studies (principal); R06.02 Shortness of breath; R05 Cough; J91.8 Pleural effusion in other conditions classified elsewhere
CPT/HCPCS: 36415; 71046; 80048; 80076; 83880; 85025; 85610

== ENCOUNTER 2017-09-10 13:12 | Inpatient (IN) | payer MEDICARE, OTHER ==
[2017-09-10] MEDS ORDERED: NORMAL SALINE 1000 ML 1,000 ML IV ONE ×4 (13:22→20:00)
[2017-09-10] MEDS ORDERED: VANCOMYCIN HCL INJ 1000 MG VIAL IV ONE (13:22)
[2017-09-10] MEDS ORDERED: PIPERACILLIN/TAZOBACTAM 4.5 GM VIAL IV ONE (13:22)
[2017-09-10 14:34] LABS: VENOUS BLOOD BASE EXCESS -1.1 mmol/L; VENOUS BLOOD HCO3 22.5 mmol/L (20-32); VENOUS BLOOD PCO2 33.1 mmHg (35-63); VENOUS BLOOD PH 7.45 (7.30-7.42)
[2017-09-10 14:35] LABS: HEMATOCRIT 29.3 % (36.0-47.0); HEMOGLOBIN 9.7 g/dL (12.0-15.5); MEAN CORPUSCULAR HEMOGLOBIN 28.4 pg (27.0-33.4); MEAN CORPUSCULAR HGB CONC 33.2 g/dL (32.0-36.0); MEAN CORPUSCULAR VOLUME 86 fl (80-97); PLATELET COUNT 292 10^3/uL (150-450); RED BLOOD COUNT 3.42 10^6/uL (3.72-5.28); RED CELL DISTRIBUTION WIDTH 14.7 % (11.5-14.0)
[2017-09-10 14:39] LABS: INTERNATIONAL RATION (INR) 2.99; PROTHROMBIN TIME 32.5 SEC (11.4-15.4)
[2017-09-10 14:49] LABS: ALANINE AMINOTRANSFERASE 22 U/L (9-52); ALBUMIN 2.6 g/dL (3.5-5.0); ALKALINE PHOSPHATASE 98 U/L (38-126); ANION GAP 7 (5-19); ASPARTATE AMINO TRANSFERASE 19 U/L (14-36); BILIRUBIN,DIRECT 0.2 mg/dL (0.0-0.4); BILIRUBIN,TOTAL 0.7 mg/dL (0.2-1.3); BLOOD UREA NITROGEN 8 mg/dL (7-20); CALCIUM 7.9 mg/dL (8.4-10.2); CARBON DIOXIDE 26 mmol/L (22-30); CHLORIDE 103 mmol/L (98-107); GLUCOSE 139 mg/dL (75-110); POTASSIUM 3.3 mmol/L (3.6-5.0); SODIUM 136.2 mmol/L (137-145); TOTAL PROTEIN 5.5 g/dL (6.3-8.2)
[2017-09-10 14:59] LABS: ABSOLUTE LYMPHOCYTES# (MANUAL) 1.1 10^3/uL (0.5-4.7); ABSOLUTE MONOCYTES # (MANUAL) 0.8 10^3/uL (0.1-1.4); ABSOLUTE NEUTROPHILS# (MANUAL) 19.1 10^3/uL (1.7-8.2); BAND NEUTROPHILS % (MANUAL) 6 % (3-5); BASOPHILS % (MANUAL) 0 % (0-2); EOSINOPHILS % (MANUAL) 0 % (0-6); LYMPHOCYTES % (MANUAL) 5 % (13-45); METAMYELOCYTES % (MANUAL) 1 % (0); MONOCYTES % (MANUAL) 4 % (3-13); SEGMENTED NEUTROPHILS % (MAN) 84 % (42-78); TOTAL CELLS COUNTED 100
--- NOTE | 2017-09-10 14:59 | RADIOLOGY REPORT (SQ) ---
EXAM DESCRIPTION: CHEST SINGLE VIEW COMPLETED DATE/TIME: 09/10/2017 2:42 pm REASON FOR STUDY: fever COMPARISON: 09/02/2017 EXAM PARAMETERS: NUMBER OF VIEWS: One view. TECHNIQUE: Single frontal radiographic view of the chest acquired. RADIATION DOSE: NA LIMITATIONS: None. FINDINGS: LUNGS AND PLEURA: Chronic elevation right diaphragm. Chronic blunting of the right costop hrenic angle. Left lung is clear. MEDIASTINUM AND HILAR STRUCTURES: No masses. Contour normal. HEART AND VASCULAR STRUCTURES: Stable heart size. BONES: No acute findings. HARDWARE: Left axillary clips. OTHER: No other significant finding. IMPRESSION: NO ACUTE RADIOGRAPHIC FINDING IN THE CHEST. TECHNICAL DOCUMENTATION: JOB ID: [id number] [employer]- All Rights Reserved
[2017-09-10 15:00] LABS: ANISOCYTOSIS SLIGHT; OVALOCYTES 2+; PLATELET COMMENT ADEQUATE; POIKILOCYTOSIS 2+; POLYCHROMASIA SLIGHT; SCHISTOCYTES 1+
[2017-09-10 15:36] LABS: APPEARANCE,URINE CLEAR; BILIRUBIN,URINE NEGATIVE (NEGATIVE); COLOR,URINE YELLOW; GLUCOSE, URINE NEGATIVE (NEGATIVE); KETONES,URINE NEGATIVE (NEGATIVE); LEUKOCYTE ESTERASE,URINE NEGATIVE (NEGATIVE); NITRITE,URINE NEGATIVE (NEGATIVE); PROTEIN,URINE NEGATIVE (NEGATIVE); URINE SPECIFIC GRAVITY 1.006; UROBILINOGEN,URINE NEGATIVE mg/dL (<2.0)
[2017-09-10] MEDS ORDERED: LIDOCAINE 1% INJ-PF (10 MG/ML) 30 ML SDV INJ ONE (15:51)
--- NOTE | 2017-09-10 15:51 | ER Document Report ---
ED Fever - General Chief Complaint: Fever Stated Complaint: ALTERED MENTAL STATUS Time Seen by Provider: 09/10/17 13:21 Notes: The patient is a 67-year-old female who presents by EMS from home after she has had fever intermittently for the past month. Earlier today, she was confused, according to family members. EMS was called and her temperature was 105.4 and she was found to be tachycardic and hypotensive. She was given IV fluids and 975 mg Tylenol prior to arrival. Patient's mental status is back to baseline and she is only complaining of sweats and chills. Patient denies nausea, vomiting, chest pain, shortness of breath, cough, neck pain, headache, urinary symptoms, flank pain, rash or recent travel. TRAVEL OUTSIDE OF THE [place] IN LAST 30 DAYS: No - Related Data Allergies/Adverse Reactions: No Known Allergies Allergy (Verified 08/07/17 16:45) Past Medical History - General Information source: Patient - Social History Smoking Status: Unknown if Ever Smoked Family History: DM, Hypertension - Past Medical History Cardiac Medical History: Reports: Hx Atrial Fibrillation, Hx Coronary Artery Disease, Hx Hypercholesterolemia, Hx Hypertension Denies: Hx Heart Attack Pulmonary Medical History: Denies: Hx Asthma, Hx Bronchitis, Hx COPD, Hx Pneumonia Neurological Medical History: Denies: Hx Cerebrovascular Accident, Hx Seizures Endocrine Medical History: Reports: Hx Diabetes Mellitus Type 2 - DIET CONTROLLED Renal/ Medical History: Denies: Hx Peritoneal Dialysis Malignancy Medical History: Reports: Hx Breast Cancer GI Medical History: Reports: Hx Gastroesophageal Reflux Disease Musculoskeltal Medical History: Reports Hx Arthritis Psychiatric Medical History: Denies: Hx Depression Past Surgical History: Reports: Hx Appendectomy, Hx Breast Surgery - left mastectomy, Hx Hysterectomy, Hx Tonsillectomy. Denies: Hx Pacemaker - Immunizations Hx Diphtheria, Pertussis, Tetanus Vaccination: Yes Hx Pneumococcal Vaccination: 04/03/06 Review of Systems - Review of Systems Notes: REVIEW OF SYSTEMS: CONSTITUTIONAL: +fevers, +chills EENT: -eye pain, -difficulty swallowing, -nasal congestion CARDIOVASCULAR: -chest pain, -syncope. RESPIRATORY: -cough, -SOB GASTROINTESTINAL: -abdominal pain, -nausea, -vomiting, -diarrhea GENITOURINARY: -dysuria, -hematuria MUSCULOSKELETAL: -back pain, -neck pain SKIN: -rash or skin lesions. HEMATOLOGIC: -easy bruising or bleeding. LYMPHATIC: -swollen, enlarged glands. NEUROLOGICAL: +altered mental status, -headache, -neurologic symptoms PSYCHIATRIC: -anxiety, -depression. ALL OTHER SYSTEMS REVIEWED AND NEGATIVE. Physical Exam - Vital signs Vitals: Resp Pulse Ox 33 H 86 L 09/10/17 13:33 09/10/17 13:33 - Notes Notes: PHYSICAL EXAMINATION: GENERAL: Well-appearing, well-nourished and in no acute distress. HEAD: Atraumatic, normocephalic. EYES: Pupils equal round and reactive to light, extraocular movements intact, sclera anicteric, conjunctiva are normal. ENT: nares patent, oropharynx clear without exudates. Moist mucous membranes. NECK: Normal range of motion, supple without lymphadenopathy LUNGS: Breath sounds clear to auscultation bilaterally and equal. No wheezes rales or rhonchi. HEART: Tachycardia, irregular rhythm ABDOMEN: Soft, nontender, normoactive bowel sounds. No guarding, no rebound. No masses appreciated. EXTREMITIES: Normal range of motion, no pitting or edema. No cyanosis. NEUROLOGICAL: Cranial nerves grossly intact. Normal speech, normal gait. Normal sensory and motor exams. PSYCH: Normal mood, normal affect. SKIN: Warm, Dry, normal turgor, no rashes or lesions noted. Course - Re-evaluation Re-evalutation: Patient with fever to 104.5, leukocytosis and tachycardia. She began to become hypotensive while in the emergency room. IV fluids were provided to the patient and broad-spectrum antibiotics were started. LP was performed, which did not show any signs of meningitis. Chest x-ray and urinalysis were also unremarkable. Patient had a CT abdomen pelvis performed last week, which did not show any acute abnormalities. She is not having any chest pain, shortness of breath or abdominal pain at this time. Unsure her source of sepsis at this time, but patient pancultured. Due to multiple high acuity patients in the ER at this time, unable to place a central line, but she has a large proximal IV that is safe for peripheral pressors up to 24 hours. Will have the RN monitor very closely for any signs of extravasation. 09/10/17 18:[address] Duarte and he will admit patient to ICU. He is asking for a repeat CT Chest/A/P to assess for causes of her fever. - Vital Signs Vital signs: Temp Pulse Resp BP Pulse Ox 98.5 F 94 28 H 119/67 100 09/11/17 05:48 09/10/17 23:41 09/11/17 07:01 09/11/17 07:01 09/11/17 07:01 - Laboratory Result Diagrams: 09/11/17 07:14 09/11/17 07:14 Laboratory results interpreted by me: 09/10/17 09/10/17 09/10/17 14:19 14:19 14:19 WBC 21.0 H RBC 3.42 L Hgb 9.7 L Hct 29.3 L RDW 14.7 H Seg Neuts % (Manual) 84 H Band Neutrophils % 6 H Lymphocytes % (Manual) 5 L Metamyelocytes % 1 H Abs Neuts (Manual) 19.1 H PT 32.5 H VBG pH VBG pCO2 Sodium 136.2 L Potassium 3.3 L Glucose 139 H Calcium 7.9 L Total Protein 5.5 L Albumin 2.6 L CSF Glucose 09/10/17 09/10/17 14:19 16:37 WBC RBC Hgb Hct RDW Seg Neuts % (Manual) Band Neutrophils % Lymphocytes % (Manual) Metamyelocytes % Abs Neuts (Manual) PT VBG pH 7.45 H VBG pCO2 33.1 L Sodium Potassium Glucose Calcium Total Protein Albumin CSF Glucose 73 H - Diagnostic Test Radiology reviewed: Image reviewed, Reports reviewed Radiology results interpreted by me: Chest x-ray: NAD - EKG Interpretation by Me EKG shows normal: Viola, Intervals, QRS Complexes, ST-T Waves Rate: Tachycardia Rhythm: A.Fib Procedures - Lumbar Puncture Lumbar puncture Time completed: 17:40 Consent obtained: Yes - Verbal from patient and daughter Lumbar puncture pre-procedure: Sterile PPE donned, Chloraprep applied, Sterile drapes applied Patient position: Sitting Needle size: 16 Lumbar puncture location: L4-L5 Anesthetic type: 1% Lidocaine mL's of anesthetic: 4 Amount/type of drainage: 4 mL clear drainage Number of attempts: 1 Complications: No Critical Care Note - Critical Care Note Total time excluding time spent on procedures (mins): 65 Discharge - Discharge Clinical Impression: Septic shock Condition: Serious Disposition: ADMITTED INPATIENT Admitting Provider: Hospitalist - [facility] Unit Admitted: ICU
[2017-09-10 17:21] LABS: GLUCOSE,CSF 73 mg/dL (40-70); PROTEIN,CSF 48 mg/dL (12-60)
[2017-09-10 17:47] LABS: APPEARANCE ALL TUBES CLEAR; COLOR ALL TUBES COLORLESS; CSF TUBE NUMBER 1; VOLUME TUBE 1 1.5 CC; VOLUME TUBE 2 1.5 CC
[2017-09-10 17:48] LABS: RED BLOOD CELL,CSF 0 /uL (0-10); WHITE BLOOD CELL,CSF 0 /uL (0-5)
[2017-09-10 17:49] LABS: APPEARANCE ALL TUBES CLEAR; COLOR ALL TUBES COLORLESS; CSF TUBE NUMBER 4; RED BLOOD CELL,CSF 0 /uL (0-10); VOLUME TUBE 1 1.5 CC; VOLUME TUBE 2 1.5 CC
[2017-09-10 17:50] LABS: WHITE BLOOD CELL,CSF 0 /uL (0-5)
[2017-09-10] MEDS ORDERED: DEXTROSE 5%-WATER 250 ML with NOREPINEPHRINE BITARTRATE 4 MG IV PRN ×2 (18:20)
[2017-09-10] MEDS ORDERED: NORMAL SALINE 1000 ML 1,000 ML IV PRN (19:44)
[2017-09-10] MEDS ORDERED: VANCOMYCIN HCL 0 MG in DEXTROSE 5%-WATER 250 ML IV NR (19:45)
[2017-09-10] MEDS ORDERED: GLUCAGON,HUMAN RECOMB 1 MG INJ SUBCUT PRN (19:46)
[2017-09-10] MEDS ORDERED: DEXTROSE 50%-WATER 25 GM/50 ML DISP.SYRIN IV PRN ×2 (19:46)
[2017-09-10] MEDS ORDERED: DEXTROSE 40% GEL 15 GM TUBE PO PRN ×2 (19:46)
--- NOTE | 2017-09-10 20:31 | RADIOLOGY REPORT (SQ) ---
EXAM DESCRIPTION: CT ABD/PELVIS WITH IV ONLY; CT CHEST WITH COMPLETED DATE/TIME: 09/10/2017 8:11 pm REASON FOR STUDY: septic shock, fever, unknown source COMPARISON: None. CONTRAST TYPE AND DOSE: contrast/concentration: Isovue 370.00 mg/ml; Total Contrast Delivered: 100.0 ml; Total Saline Delivered: 54.2 ml RENAL FUNCTION: GFR > 60. TECHNIQUE: CT scan of the chest performed using helical scanning technique with dynamic intravenous contrast injection. Images reviewed with lung, soft tissue and bone windows. Reconstructed coronal a nd sagittal MPR images reviewed. All images stored on PACS. CT scan of the abdomen and pelvis performed with intravenous and oral contrast using helical scanning technique with dynamic intravenous contrast injection. Images reviewed with lung, soft tissue and b one windows. Reconstructed coronal and sagittal MPR images reviewed. Delayed images for evaluation of the urinary system also acquired and evaluated. All images stored on PACS. All CT scanners at this facility use dose modulation, iterative reconstruction, and/or weight based d osing when appropriate to reduce radiation dose to as low as reasonably achievable (ALARA). [facility]: Dose Right [facility]: CareDose [facility]: Dose Right [facility]: Teradose 4D [facility]: [employer]ganics RADIATION DOSE: CT Rad equipment meets quality standard of care and radiation dose reduction techniq ues were employed. CTDIvol: 5.6 - 7.9 mGy. DLP: 836 mGy-cm. . LIMITATIONS: None. FINDINGS: CHEST: AXILLAE: No adenopathy. CHEST WALL: No masses. No subcutaneous air. LUNGS: No opacities. No pneumothorax. PLEURA: Moderate right pleural effusion with compressive atelectasis. THYROID: No masses or significant asymmetry. HILAR AND MEDIASTINAL STRUCTURES: No identified masses or abnormal nodes. AORTA AND GREAT VESSELS: No aneurysm. No dissection. PULMONARY ARTERIES: No identified pulmonary emboli. Study not optimized for the pulmonary arteries. HEART: No pericardial effusion. HARDWARE AND LIFELINES: None. BONES: No significant finding. OTHER: No other significant finding. ABDOMEN AND PELVIS: LIVER: There multiple masses in the liver. There is a complex mass with rim enhancement posteriorly in the right lobe. Measures 9 cm. Internal high density. An adjacent superiorly cystic mass measur es 9 cm. Multiple smaller cystic or complex cystic masses noted. There is also marked focal dilatat ion of bile ducts in the left lobe of the liver. SPLEEN: Normal size. No focal lesions. PANCREAS: No masses. No significant calcifications. No adjacent inflammation or peripancreatic flui d collections. Pancreatic duct not dilated. GALLBLADDER: No identified stones by CT criteria. No inflammatory changes to suggest cholecystitis. ADRENAL GLANDS: No significant masses or asymmetry. RIGHT KIDNEY AND URETER: No solid masses. No significant calcifications. No hydronephrosis or hyd roureter. LEFT KIDNEY AND URETER: No solid masses. No significant calcifications. No hydronephrosis or hydr oureter. AORTA AND VESSELS: No aneurysm. No dissection. Renal arteries, SMA, celiac without stenosis. RETROPERITONEUM: No retroperitoneal adenopathy, hemorrhage or masses. LARGE AND SMALL BOWEL: No dilatation. No masses. No wall thickening. APPENDIX: Surgically absent. ABDOMINAL WALL: No hernia or masses. PERITONEAL CAVITY: No free air. No free fluid. No peritoneal implants or masses. PELVIS: Bladder unremarkable. BONES: No significant or acute findings. OTHER: No other significant finding. IMPRESSION: Multiple hepatic cystic masses with at least 1 large complex cystic mass. Other lesions appear to be purely cystic. Differential is broad but includes tumor, abscesses including amebic an d hydatid abscesses, cholangiocarcinoma. Moderate right pleural effusion with compressive atelectasis. TECHNICAL DOCUMENTATION: JOB ID: [id number] Quality ID # [id number]: Final reports with documentation of one or more dose reduction techniques (e.g., Au tomated exposure control, adjustment of the mA and/or kV according to patient size, use of iterative reconstruction technique) 2010 [employer]- All Rights Reserved
[2017-09-10 21:37] LABS: A TYPE INFLUENZA AG NEGATIVE (NEGATIVE); B INFLUENZA AG NEGATIVE (NEGATIVE)
[2017-09-10 21:38] LABS: URINE AMPHETAMINES SCREEN NEGATIVE; URINE BARBITURATES SCREEN NEGATIVE; URINE BENZODIAZEPINES SCREEN NEGATIVE; URINE COCAINE SCREEN NEGATIVE; URINE MARIJUANA (THC) SCREEN NEGATIVE; URINE METHADONE SCREEN NEGATIVE; URINE PHENCYCLIDINE SCREEN NEGATIVE
--- NOTE | 2017-09-10 22:45 | EKG REPORT ---
SEVERITY:- ABNORMAL ECG - ATRIAL FIBRILLATION : Confirmed by: René Norris 10-Sep-2017 22:45:04
[2017-09-11] MEDS ORDERED: POTASSIUM CHLORIDE 10 MEQ TABLET.SA PO ONE (00:06)
[2017-09-11] MEDS ORDERED: CARBOXYMETHYLCELLULOSE SOD 0.5% 0.4 ML DROPERETTE OU PRN (04:01)
--- NOTE | 2017-09-11 04:27 | PDOC H&P ---
History of Present Illness Admission Date/PCP: 09/10/17 19:05 CRISS WATTERS MD Patient complains of: Fever and passing out History of Present Illness: LUIS CANALES is a 67 year old female with history of atrial fibrillation on anticoagulation with Coumadin, coronary artery disease, hyperlipidemia, hypertension presenting with a ongoing history of not feeling well since last month. Patient states she has been to the hospital ED multiple times regarding just not feeling well. Patient has been having chills and shaking and just passing out. Patient blood pressures have been extremely low despite her blood pressure medications being decreased. Patient does report feeling lightheaded sometimes with getting up. Patient follows with Dr. Barnhart who has referred her to the ED several times. Patient has been sweaty and passed out 2-3 times this week. When patient comes to she does not remember passing out. Patient does not check her temperatures at home. She does break out in sweats though. She also reports decreased p.o. intake due to lack of appetite. However when she was picked up by the EMS she was noted to be febrile at 105.4 In the ED patient underwent a LP which was clear. Patient chest abdomen and pelvis were scanned. Patient has a moderate sized right-sided pleural effusion. Patient has a cystic liver however this is known and patient is followed at [facility] in this regard. Hospitalist was called to admit patient for febrile illness, hypotension and syncope. Past Medical History Cardiac Medical History: Reports: Atrial Fibrillation, Coronary Artery Disease, Hyperlipidema, Hypertension Denies: Myocardial Infarction Pulmonary Medical History: Denies: Asthma, Bronchitis, Chronic Obstructive Pulmonary Disease (COPD), Pneumonia Neurological Medical History: Denies: Seizures Endocrine Medical History: Reports: Diabetes Mellitus Type 2 - DIET CONTROLLED Malignancy Medical History: Reports: Breast Cancer GI Medical History: Reports: Gastroesophageal Reflux Disease Musculoskeltal Medical History: Reports: Arthritis Psychiatric Medical History: Denies: Depression Hematology: Denies: Anemia Past Surgical History Past Surgical History: Reports: Appendectomy, Hysterectomy, Tonsillectomy Denies: Pacemaker Social History Smoking Status: Never Smoker Frequency of Alcohol Use: None Hx Recreational Drug Use: No Drugs: None Hx Prescription Drug Abuse: No - Advance Directive Resuscitation Status: Full Code Family History Family History: DM, Hypertension Parental Family History Reviewed: No Children Family History Reviewed: No Sibling(s) Family History Reviewed.: No Medication/Allergy Home Medications: Calcium Carbonate/Vitamin D3 [Calcium 500-Vit D3 200 Caplet] 1 tab PO DAILY 03/20 Carboxymethylcellulose Sodium [Refresh Plus 0.5% Oph Soln 0.4 ml Droperette] 4 drop OU Q6HP PRN 09/10/17 Carvedilol [Coreg 12.5 mg Tablet] 12.5 mg PO Q12 09/10/17 Cyclosporine 0.05% Oph Emulsio [Restasis 0.05% Oph Emulsion Pf 0.4 ml] 1 drop OU Q12 09/10/17 Diltiazem HCl [Diltiazem 24Hr Cd] 240 mg PO DAILY 09/10/17 Furosemide [Lasix 20 mg Tablet] 20 mg PO DAILY 09/10/17 Pantoprazole Sodium [Protonix] 40 mg PO DAILY 09/10/17 Rosuvastatin Calcium [Crestor 20 mg Tablet] 20 mg PO QHS 09/10/17 Warfarin Sodium [Coumadin 2 mg Tablet] 2 mg PO QPM 09/10/17 Allergies/Adverse Reactions: No Known Allergies Allergy (Verified 08/07/17 16:45) Review of Systems Constitutional: PRESENT: anorexia, fever(s), night sweats. ABSENT: chills, headache(s), weight gain, weight loss Eyes: ABSENT: visual disturbances Ears: ABSENT: hearing changes Cardiovascular: ABSENT: chest pain, dyspnea on exertion, edema, orthropnea, palpitations Respiratory: ABSENT: cough, hemoptysis Gastrointestinal: ABSENT: abdominal pain, constipation, diarrhea, hematemesis, hematochezia, nausea, vomiting Genitourinary: ABSENT: dysuria, hematuria Musculoskeletal: ABSENT: joint swelling Integumentary: ABSENT: rash, wounds Neurological: PRESENT: memory loss, paresthesias, syncope. ABSENT: abnormal gait, abnormal speech, confusion, dizziness, focal weakness Psychiatric: ABSENT: anxiety, depression, homidical ideation, suicidal ideation Endocrine: ABSENT: cold intolerance, heat intolerance, polydipsia, polyuria Hematologic/Lymphatic: ABSENT: easy bleeding, easy bruising Physical Exam Vital Signs: Temp Pulse Resp BP Pulse Ox 17 78/51 L 97 09/10/17 17:45 09/10/17 17:45 09/10/17 17:45 General appearance: PRESENT: no acute distress, well-developed, well-nourished Head exam: PRESENT: normocephalic Eye exam: PRESENT: EOMI. ABSENT: scleral icterus Ear exam: PRESENT: normal external ear exam Mouth exam: PRESENT: moist Neck exam: ABSENT: carotid bruit, JVD, lymphadenopathy, thyromegaly Respiratory exam: PRESENT: clear to auscultation jesisca. ABSENT: rales, rhonchi, wheezes Cardiovascular exam: PRESENT: RRR. ABSENT: diastolic murmur, rubs, systolic murmur Pulses: PRESENT: normal dorsalis pedis pul Vascular exam: PRESENT: normal capillary refill GI/Abdominal exam: PRESENT: normal bowel sounds, soft. ABSENT: distended, guarding, mass, organolmegaly, rebound, tenderness Rectal exam: PRESENT: deferred Extremities exam: PRESENT: full ROM. ABSENT: calf tenderness, clubbing, pedal edema Neurological exam: PRESENT: alert, awake, oriented to person, oriented to place , oriented to time, oriented to situation, CN II-XII grossly intact. ABSENT: motor sensory deficit Psychiatric exam: PRESENT: appropriate affect, normal mood. ABSENT: homicidal ideation, suicidal ideation Skin exam: PRESENT: dry, intact, warm. ABSENT: cyanosis, rash Results Laboratory Results: 09/10/17 09/10/17 09/10/17 14:19 14:19 14:19 WBC 21.0 H RBC 3.42 L Hgb 9.7 L Hct 29.3 L MCV 86 MCH 28.4 MCHC 33.2 RDW 14.7 H Plt Count 292 Total Counted 100 Seg Neuts % (Manual) 84 H Band Neutrophils % 6 H Lymphocytes % (Manual) 5 L Monocytes % (Manual) 4 Metamyelocytes % 1 H Abs Neuts (Manual) 19.1 H PT 32.5 H INR 2.99 VBG pH VBG pCO2 VBG HCO3 VBG Base Excess Sodium 136.2 L Potassium 3.3 L Chloride 103 Carbon Dioxide 26 Anion Gap 7 BUN 8 Creatinine 0.86 Est GFR ( Amer) > 60 Est GFR (Non-Af Amer) > 60 Glucose 139 H POC Glucose Lactic Acid Calcium 7.9 L Total Bilirubin 0.7 Direct Bilirubin 0.2 AST 19 ALT 22 Alkaline Phosphatase 98 Total Protein 5.5 L Albumin 2.6 L Urine Color Urine Appearance Urine pH Ur Specific Crandall Urine Protein Urine Glucose (UA) Urine Ketones Urine Blood Urine Nitrite Urine Bilirubin Urine Urobilinogen Ur Leukocyte Esterase Urine WBC (Auto) Urine RBC (Auto) U Hyaline Cast (Auto) Squamous Epi Cells Auto Urine Ascorbic Acid Fluid Tube Number CSF Volume CSF Appearance CSF Color CSF WBC CSF RBC CSF Glucose CSF Total Protein Urine Opiates Screen Urine Methadone Screen Ur Barbiturates Screen Ur Phencyclidine Scrn Ur Amphetamines Screen U Benzodiazepines Scrn Urine Cocaine Screen U Marijuana (THC) Screen Influenza A (Rapid) Influenza B (Rapid) Sofy Ink 09/10/17 09/10/17 09/10/17 14:19 14:19 14:44 WBC RBC Hgb Hct MCV MCH MCHC RDW Plt Count Total Counted Seg Neuts % (Manual) Band Neutrophils % Lymphocytes % (Manual) Monocytes % (Manual) Metamyelocytes % Abs Neuts (Manual) PT INR VBG pH 7.45 H VBG pCO2 33.1 L VBG HCO3 22.5 VBG Base Excess -1.1 Sodium Potassium Chloride Carbon Dioxide Anion Gap BUN Creatinine Est GFR ( Amer) Est GFR (Non-Af Amer) Glucose POC Glucose Lactic Acid 1.8 Calcium Total Bilirubin Direct Bilirubin AST ALT Alkaline Phosphatase Total Protein Albumin Urine Color YELLOW Urine Appearance CLEAR Urine pH 7.0 Ur Specific Crandall 1.006 Urine Protein NEGATIVE Urine Glucose (UA) NEGATIVE Urine Ketones NEGATIVE Urine Blood NEGATIVE Urine Nitrite NEGATIVE Urine Bilirubin NEGATIVE Urine Urobilinogen NEGATIVE Ur Leukocyte Esterase NEGATIVE Urine WBC (Auto) 1 Urine RBC (Auto) 3 U Hyaline Cast (Auto) 4 Squamous Epi Cells Auto <1 Urine Ascorbic Acid NEGATIVE Fluid Tube Number CSF Volume CSF Appearance CSF Color CSF WBC CSF RBC CSF Glucose CSF Total Protein Urine Opiates Screen Urine Methadone Screen Ur Barbiturates Screen Ur Phencyclidine Scrn Ur Amphetamines Screen U Benzodiazepines Scrn Urine Cocaine Screen U Marijuana (THC) Screen Influenza A (Rapid) Influenza B (Rapid) Sofy Ink 09/10/17 09/10/17 09/10/17 14:44 16:37 16:37 WBC RBC Hgb Hct MCV MCH MCHC RDW Plt Count Total Counted Seg Neuts % (Manual) Band Neutrophils % Lymphocytes % (Manual) Monocytes % (Manual) Metamyelocytes % Abs Neuts (Manual) PT INR VBG pH VBG pCO2 VBG HCO3 VBG Base Excess Sodium Potassium Chloride Carbon Dioxide Anion Gap BUN Creatinine Est GFR ( Amer) Est GFR (Non-Af Amer) Glucose POC Glucose Lactic Acid Calcium Total Bilirubin Direct Bilirubin AST ALT Alkaline Phosphatase Total Protein Albumin Urine Color Urine Appearance Urine pH Ur Specific Crandall Urine Protein Urine Glucose (UA) Urine Ketones Urine Blood Urine Nitrite Urine Bilirubin Urine Urobilinogen Ur Leukocyte Esterase Urine WBC (Auto) Urine RBC (Auto) U Hyaline Cast (Auto) Squamous Epi Cells Auto Urine Ascorbic Acid Fluid Tube Number 1 CSF Volume 6.0 CSF Appearance CLEAR CSF Color COLORLESS CSF WBC 0 CSF RBC 0 CSF Glucose 73 H CSF Total Protein 48 Urine Opiates Screen NEGATIVE Urine Methadone Screen NEGATIVE Ur Barbiturates Screen NEGATIVE Ur Phencyclidine Scrn NEGATIVE Ur Amphetamines Screen NEGATIVE U Benzodiazepines Scrn NEGATIVE Urine Cocaine Screen NEGATIVE U Marijuana (THC) Screen NEGATIVE Influenza A (Rapid) Influenza B (Rapid) Sofy Ink 09/10/17 09/10/17 09/10/17 16:37 16:39 20:46 WBC RBC Hgb Hct MCV MCH MCHC RDW Plt Count Total Counted Seg Neuts % (Manual) Band Neutrophils % Lymphocytes % (Manual) Monocytes % (Manual) Metamyelocytes % Abs Neuts (Manual) PT INR VBG pH VBG pCO2 VBG HCO3 VBG Base Excess Sodium Potassium Chloride Carbon Dioxide Anion Gap BUN Creatinine Est GFR ( Amer) Est GFR (Non-Af Amer) Glucose POC Glucose Lactic Acid Calcium Total Bilirubin Direct Bilirubin AST ALT Alkaline Phosphatase Total Protein Albumin Urine Color Urine Appearance Urine pH Ur Specific Cr[place]all Urine Protein Urine Glucose (UA) Urine Ketones Urine Blood Urine Nitrite Urine Bilirubin Urine Urobilinogen Ur Leukocyte Esterase Urine WBC (Auto) Urine RBC (Auto) U Hyaline Cast (Auto) Squamous Epi Cells Auto Urine Ascorbic Acid Fluid Tube Number 4 CSF Volume 6.0 CSF Appearance CLEAR CSF Color COLORLESS CSF WBC 0 CSF RBC 0 CSF Glucose CSF Total Protein Urine Opiates Screen Urine Methadone Screen Ur Barbiturates Screen Ur Phencyclidine Scrn Ur Amphetamines Screen U Benzodiazepines Scrn Urine Cocaine Screen U Marijuana (THC) Screen Influenza A (Rapid) NEGATIVE Influenza B (Rapid) NEGATIVE Sofy Ink NEGATIVE 09/10/17 20:51 WBC RBC Hgb Hct MCV MCH MCHC RDW Plt Count Total Counted Seg Neuts % (Manual) Band Neutrophils % Lymphocytes % (Manual) Monocytes % (Manual) Metamyelocytes % Abs Neuts (Manual) PT INR VBG pH VBG pCO2 VBG HCO3 VBG Base Excess Sodium Potassium Chloride Carbon Dioxide Anion Gap BUN Creatinine Est GFR ( Amer) Est GFR (Non-Af Amer) Glucose POC Glucose 130 H Lactic Acid Calcium Total Bilirubin Direct Bilirubin AST ALT Alkaline Phosphatase Total Protein Albumin Urine Color Urine Appearance Urine pH Ur Specific Cr[place]all Urine Protein Urine Glucose (UA) Urine Ketones Urine Blood Urine Nitrite Urine Bilirubin Urine Urobilinogen Ur Leukocyte Esterase Urine WBC (Auto) Urine RBC (Auto) U Hyaline Cast (Auto) Squamous Epi Cells Auto Urine Ascorbic Acid Fluid Tube Number CSF Volume CSF Appearance CSF Color CSF WBC CSF RBC CSF Glucose CSF Total Protein Urine Opiates Screen Urine Methadone Screen Ur Barbiturates Screen Ur Phencyclidine Scrn Ur Amphetamines Screen U Benzodiazepines Scrn Urine Cocaine Screen U Marijuana (THC) Screen Influenza A (Rapid) Influenza B (Rapid) Sofy Ink Impressions: Chest X-Ray 09/10/17 13:22 IMPRESSION: NO ACUTE RADIOGRAPHIC FINDING IN THE CHEST. Assessment & Plan - Diagnosis (1) Metabolic encephalopathy Is this a current diagnosis for this admission?: Yes Plan: Patient family reports change in mentation and forgetfulness. This could possibly be due to underlying infection. LP was done. Patient currently on vancomycin and ceftriaxone. Patient is back to her baseline now. However will check B12, folate, thiamine, TSH, T4, vitamin D and cortisol levels. (2) SIRS (systemic inflammatory response syndrome) Is this a current diagnosis for this admission?: Yes Plan: Patient was febrile, hypotensive with leukocytosis. LP was completed. Blood and urine cultures pending. Patient vancomycin and ceftriaxone (meningitic coverage). Spinal fluid appears normal. Patient does have cystic liver on CT scan. However this is known and is has been evaluated at [facility]. Patient does have a moderate right-sided pleural effusion which should be tapped however patient INR is 2.99. Will hold patient Coumadin. Patient is currently on adequate antibiotic coverage for possible pneumonia. (3) Acute blood loss anemia Is this a current diagnosis for this admission?: Yes Plan: She with acute blood loss anemia. Patient hemoglobin is 9.7 it was 11.4 on previous admission on 09/02/2017. Patient is on anticoagulation with Coumadin. Patient INR is 2.99. Will hold patient Coumadin. Concerned that patient may be having upper GI bleed. Patient did not complain of any diarrhea or dark stools. Will monitor hemoglobin. Patient may require GI workup. Iron studies are being ordered. In the meantime will place patient on Protonix IV push twice daily. (4) Syncopal episodes Is this a current diagnosis for this admission?: Yes Plan: Patient with syncopal episodes. These are occurring when patient is sitting down. Patient becomes diaphoretic pale and passes out. Concerned that this may be due to low blood pressures. Check cardiac echo to assess patient valves especially her aortic valve. Will order carotid Doppler to assess first 2 doses. Will check cortisol level. Will monitor orthostatic blood pressures she does report lightheadedness with standing up. Patient may benefit from Midodrine or Florinef. (5) Liver cyst Is this a current diagnosis for this admission?: Yes Plan: She has a known history of liver cirrhosis. Patient has been evaluated at [facility] for this. Will check AFP and hepatic panel. (6) Hypokalemia Is this a current diagnosis for this admission?: Yes Plan: Patient potassium slightly low. This is most likely due to the use of Lasix. Will give oral replacement follow-up. (7) Pleural effusion Is this a current diagnosis for this admission?: Yes Plan: She has a moderate right sided pleural effusion. Recommend having this drained and cultured. However this must be done once patient INR trends down. It is currently 2.99. Will hold Coumadin and follow-up in the morning. Fluid should be sent for cultures as patient has been having recurrent fevers. Patient denies any respiratory symptoms. Will check rheumatoid factor, CRP and ESR. Patient currently on vancomycin and ceftriaxone for possible meningitis. (8) Malnutrition Qualifiers: Malnutrition type: protein-calorie malnutrition Is this a current diagnosis for this admission?: Yes Plan: With albumin of 2.6. Patient does admit to not eating very much. Patient may benefit from dietary consult.
[2017-09-11] MEDS ORDERED: LANSOPRAZOLE 30 MG TAB.RAP.DR PO SCH (06:00)
[2017-09-11 07:35] LABS: ABSOLUTE LYMPHOCYTES (AUTO) 1.4 10^3/uL (0.5-4.7); ABSOLUTE NEUT (AUTO) 8.9 10^3/uL (1.7-8.2); ABSOLUTE RETICS # 0.057 10^6/uL (0.028-0.122); BASOPHILS % (AUTO) 0.3 % (0-2); EOSINOPHILS % (AUTO) 0.1 % (0-6); LYMPHOCYTES % (AUTO) 12.4 % (13-45); MEAN CORPUSCULAR HEMOGLOBIN 28.9 pg (27.0-33.4); MEAN CORPUSCULAR HGB CONC 33.5 g/dL (32.0-36.0); MEAN CORPUSCULAR VOLUME 87 fl (80-97); MONOCYTES % (AUTO) 8.8 % (3-13); PLATELET COUNT 252 10^3/uL (150-450); RED BLOOD COUNT 3.12 10^6/uL (3.72-5.28); RED CELL DISTRIBUTION WIDTH 14.8 % (11.5-14.0); RETICULOCYTE COUNT (AUTO) 1.84 % (0.66-2.85); SEGMENTED NEUTROPHILS % (AUTO) 78.4 % (42-78); TOTAL CELLS COUNTED % (AUTO) 100 %; WHITE BLOOD COUNT 11.4 10^3/uL (4.0-10.5)
[2017-09-11 07:56] LABS: ALANINE AMINOTRANSFERASE 20 U/L (9-52); ALBUMIN 2.4 g/dL (3.5-5.0); ALKALINE PHOSPHATASE 90 U/L (38-126); ANION GAP 6 (5-19); ASPARTATE AMINO TRANSFERASE 16 U/L (14-36); BILIRUBIN,DIRECT 0.2 mg/dL (0.0-0.4); BILIRUBIN,TOTAL 0.4 mg/dL (0.2-1.3); BLOOD UREA NITROGEN 6 mg/dL (7-20); CALCIUM 8.4 mg/dL (8.4-10.2); CARBON DIOXIDE 24 mmol/L (22-30); CHLORIDE 113 mmol/L (98-107); CREATINE KINASE 21 U/L (30-135); GLUCOSE 102 mg/dL (75-110); IRON(TIBC) 16.8 ug/dL (37-170); POTASSIUM 3.7 mmol/L (3.6-5.0); SODIUM 142.7 mmol/L (137-145); TOTAL PROTEIN 5.3 g/dL (6.3-8.2)
[2017-09-11 08:00] LABS: INTERNATIONAL RATION (INR) 3.09; PROTHROMBIN TIME 33.4 SEC (11.4-15.4)
[2017-09-11 08:10] LABS: C-REACTIVE PROTEIN 167.9 mg/L (<10.0)
[2017-09-11] MEDS: PANTOPRAZOLE SODIUM 40 MG VIAL IV SCH ×2 (10:43→22:59)
[2017-09-11] MEDS: DOCUSATE SODIUM 100 MG CAPSULE PO SCH ×2 (10:43→18:01)
[2017-09-11] MEDS: CEFTRIAXONE 2 GM/D5W RTU 2 GM/50 ML RTUPB IV SCH (10:44)
[2017-09-11] MEDS: CYCLOSPORINE 0.05% OPH EMULSIO 0.4 ML DROPERETTE OU SCH ×2 (10:44→22:59)
[2017-09-11] MEDS: VANCOMYCIN HCL 1,500 MG in DEXTROSE 5%-WATER 250 ML IV SCH (11:26)
[2017-09-11] MEDS ORDERED: GUAIFENESIN 600 MG TABLET.SA PO ONE (15:44)
[2017-09-11] MEDS ORDERED: CARVEDILOL 12.5 MG TABLET PO ONE (15:46)
[2017-09-11] MEDS ORDERED: (PENDING PHARMACY ID) (Diltiazem Hcl [Diltiazem 24hr Cd] 240 MG) PO SCH (19:15)
--- NOTE | 2017-09-11 20:58 | PROGRESS NOTE E ---
Progress Note NAME: LUIS CANALES : 1950 AGE: 67Y DATE: 09/11/2017 ROOM: 326 SUBJECTIVE: The patient is lying in bed. The patient states that she does feel better than when she came in, that she does not even remember coming in to the hospital. The patient's heart rate is up a little bit between 100 and 120. The patient has been afebrile. Her blood pressures have been in a good range. The patient has had no reported episodes of vomiting nor diarrhea. The patient has a good appetite and does not voice any other concerns at this time. REVIEW OF SYSTEMS: Rest of the review of systems is negative. MEDICATIONS: Medications have been reviewed. OBJECTIVE: GENERAL: The patient is a 67-year-old female who is awake, alert and oriented to person, place, time and situation. She is verbal, conversational. Does appear to be in any acute distress. VITAL SIGNS: As follows: Temperature is 98.7, pulse 105, respirations 20, blood pressure is 115/57, oxygen saturation 98% on room air. SKIN: Warm and dry. No rash. She is not diaphoretic. HEENT: Pupils equal, round and reactive to light and accommodation. Conjunctivae are pink. NECK: No evidence of JVP. CVS: Heart is irregularly irregular. No rub. CHEST: Symmetrical, unlabored, clear. ABDOMEN: Soft, nontender, nondistended. BACK: No CVA tenderness or sacral edema. EXTREMITIES: No clubbing, cyanosis or edema. PSYCHIATRIC: Appropriate affect, pleasant mood. DIAGNOSTICS: Lab values are as follows: Hematology obtained on 09/11/2017: WBCs are 11.4, hemoglobin is 9.0, hematocrit is 27.0, platelet count is 252,000. Chemistry obtained on 09/11/2017: Sodium 142, potassium 2.7, chloride is 113, carbon dioxide is 24, BUN 6, creatinine is 0.59, glucose 102. Calcium is 8.4, magnesium is 1.9. Iron is 16.8. TIBC is 203. IMPRESSION AND PLAN: 1. SIRS. The patient was febrile LP completed. Nothing remarkable. Continue antibiotic coverage and follow for now as the patient has had significant improvement. 2. METABOLIC ENCEPHALOPATHY. The patient's mental status is back to baseline. 3. ACUTE BLOOD LOSS ANEMIA. The patient's hemoglobin appears relatively stable. The patient does appear to be iron deficient as well. Will follow. 4. SYNCOPAL EPISODES. These appear to be happening when the patient is sitting down. Will monitor. 5. LIVER CYST. The patient has a known history of cirrhosis. She has been evaluated at [facility] for this. 6. HYPOKALEMIA. This was repleted. 7. PLEURAL EFFUSION. A moderate right-sided pleural effusion. This can be drained once the patient's INR trends down. Will follow. 8. MALNUTRITION WITH ALBUMIN AT 2.6. May also be due to hepatic dysfunction. DISPOSITION: The patient is a FULL CODE. Pending patient's symptomatology and diagnostic findings, will reevaluate in the a.m. Time spent on this followup including assessment, plan, physical examination, patient education, review of records is 25 minutes. DICTATING PHYSICIAN: LORNA BLACKBURN NP [id number] PHY#: [id number] [id number] JOB#: [id number] ACCT: [id number] cc: > MTDD
[2017-09-11] MEDS ORDERED: (PENDING PHARMACY ID) (Rosuvastatin Calcium [Crestor 20 Mg Tablet] 20 MG) PO SCH (22:00)
[2017-09-11] MEDS: GUAIFENESIN 600 MG TABLET.SA PO SCH (22:58)
[2017-09-11] MEDS: CARVEDILOL 12.5 MG TABLET PO SCH (22:58)
[2017-09-11] MEDS: ATORVASTATIN CALCIUM 40 MG TABLET PO SCH (22:58)
[2017-09-12 05:28] LABS: ABSOLUTE LYMPHOCYTES (AUTO) 1.8 10^3/uL (0.5-4.7); ABSOLUTE MONOCYTES (AUTO) 0.9 10^3/uL (0.1-1.4); BASOPHILS % (AUTO) 0.3 % (0-2); EOSINOPHILS % (AUTO) 0.6 % (0-6); HEMATOCRIT 26.3 % (36.0-47.0); HEMOGLOBIN 8.9 g/dL (12.0-15.5); LYMPHOCYTES % (AUTO) 23.6 % (13-45); MEAN CORPUSCULAR HEMOGLOBIN 28.9 pg (27.0-33.4); MEAN CORPUSCULAR VOLUME 85 fl (80-97); PLATELET COUNT 267 10^3/uL (150-450); RED BLOOD COUNT 3.09 10^6/uL (3.72-5.28); RED CELL DISTRIBUTION WIDTH 14.5 % (11.5-14.0); SEGMENTED NEUTROPHILS % (AUTO) 64.5 % (42-78); TOTAL CELLS COUNTED % (AUTO) 100 %; WHITE BLOOD COUNT 7.8 10^3/uL (4.0-10.5)
[2017-09-12 05:50] LABS: ALANINE AMINOTRANSFERASE 23 U/L (9-52); ALBUMIN 2.2 g/dL (3.5-5.0); ALKALINE PHOSPHATASE 100 U/L (38-126); ANION GAP 7 (5-19); ASPARTATE AMINO TRANSFERASE 16 U/L (14-36); BILIRUBIN,DIRECT 0.1 mg/dL (0.0-0.4); BILIRUBIN,TOTAL 0.4 mg/dL (0.2-1.3); BLOOD UREA NITROGEN 4 mg/dL (7-20); CALCIUM 8.4 mg/dL (8.4-10.2); CARBON DIOXIDE 24 mmol/L (22-30); CHLORIDE 110 mmol/L (98-107); GLUCOSE 86 mg/dL (75-110); SODIUM 140.9 mmol/L (137-145)
[2017-09-12 06:10] LABS: ERYTHROCYTE SEDIMENTATION RATE 102 mm/hr (0-30)
[2017-09-12] MEDS ORDERED: POTASSIUM CHLORIDE 10 MEQ TABLET.SA PO SCH (07:00)
[2017-09-12] MEDS: LANSOPRAZOLE 30 MG TAB.RAP.DR PO SCH (07:31)
[2017-09-12] MEDS: VANCOMYCIN HCL 1,500 MG in DEXTROSE 5%-WATER 250 ML IV SCH (09:09)
[2017-09-12] MEDS: DILTIAZEM HCL 240 MG CAPSULE.CR PO SCH (09:12)
[2017-09-12] MEDS: FUROSEMIDE 20 MG TABLET PO SCH (09:12)
[2017-09-12] MEDS: DOCUSATE SODIUM 100 MG CAPSULE PO SCH ×2 (09:12→17:15)
[2017-09-12] MEDS: GUAIFENESIN 600 MG TABLET.SA PO SCH ×2 (09:12→21:36)
[2017-09-12] MEDS: CARVEDILOL 12.5 MG TABLET PO SCH ×2 (09:13→21:36)
[2017-09-12] MEDS: CEFTRIAXONE 2 GM/D5W RTU 2 GM/50 ML RTUPB IV SCH (10:05)
[2017-09-12] MEDS: CYCLOSPORINE 0.05% OPH EMULSIO 0.4 ML DROPERETTE OU SCH ×2 (10:06→21:35)
[2017-09-12] MEDS: PANTOPRAZOLE SODIUM 40 MG VIAL IV SCH ×2 (10:06→21:37)
[2017-09-12] MEDS: POTASSI CL 20 MEQ/50 ML RIDER 20 MEQ/50 ML RTUPB IV SCH ×2 (14:22→17:12)
[2017-09-12] MEDS: ACETAMINOPHEN 325 MG TABLET PO PRN (14:41)
--- NOTE | 2017-09-12 15:03 | PROGRESS NOTE E ---
Progress Note NAME: LUIS CANALES : 1950 AGE: 67Y DATE: 09/12/2017 ROOM: 326 SUBJECTIVE: The patient is lying in bed. She states that she does feel better today, does not feel as sick as she did when she came in. The patient's mental status is back to baseline. The patient denies any nausea or vomiting, diarrhea. Does admit to some mild shortness of breath. She has been producing a significant amount of sputum. The patient has been afebrile. Her blood pressures have been in a good range. A little tachycardic but overall the patient is much improved. REVIEW OF SYSTEMS: Rest of the review of systems is negative. MEDICATIONS: Have been reviewed. OBJECTIVE: GENERAL: The patient is a 67-year-old female who is awake, alert and oriented to person, place, time and situation. She is verbal, conversational. Does not appear to be in any acute distress. VITAL SIGNS: Temperature is 98.7, pulse 109, respiration 16, blood pressure is 104/68, oxygen saturation 97% on room air. SKIN: Warm and dry. No rash. She is not diaphoretic. HEENT: Pupils equal, round and reactive to light and accommodation. Conjunctivae are pink. NECK: No evidence of JVD. CVS: Heart is regular. There is no murmur or rub. CHEST: Clear, symmetrical, unlabored. ABDOMEN: Soft, nontender, nondistended. BACK: No CVA tenderness or sacral edema. EXTREMITIES: No clubbing, cyanosis or edema. PSYCHIATRIC: Appropriate affect, pleasant mood. DIAGNOSTICS: Lab values are as follows: Hematology obtained on 09/12/2017: WBCs are 7.8, hemoglobin is 8.9, hematocrit is 26.3, platelet count is 267,000. Chemistry obtained on 09/12/2017: Sodium is 140, potassium 3.0, chloride is 110, carbon dioxide 24, BUN 4, creatinine is 0.66, glucose 86, calcium is 8.4, magnesium is 1.9. Total protein 5. Albumin 2.2. IMPRESSION AND PLAN: 1. SEPSIS. Present on admission given the patient's fever, white count, tachycardia, and hypotension. The patient's lumbar puncture was unremarkable. The patient has responded very well to current antibiotic coverage. Her white count has trended down nicely. Given the patient is producing sputum, I have a high suspicion for a clinical pneumonia. Will continue to treat given that the patient has made significant improvement. 2. METABOLIC ENCEPHALOPATHY SECONDARY TO #1. This has resolved. 3. ACUTE BLOOD LOSS ANEMIA. Overall the patient's hemoglobin appears to be stable. She appears to be iron deficient. Will monitor CBC. 4. SYNCOPAL EPISODES. This appears to be happening when the patient is sitting down. Will monitor. 5. LIVER CYST. The patient has a known history of cirrhosis for which she was evaluated at [facility]. However, cysts are a newer presentation. Alpha-fetoprotein is pending. Will follow. 6. HYPOKALEMIA. This was repleted. 7. PLEURAL EFFUSION. The patient has a moderate right-sided pleural effusion. This can be drained once the patient's INR trends down. However, the patient clinically is much improved. No evidence of empyema or so forth. 8. MALNUTRITION WITH ALBUMIN OF 2.6. May be due to her hepatic dysfunction. DISPOSITION: The patient is a FULL CODE. Pending patient's symptomatology and diagnostic findings, will reevaluate in the a.m. Time spent on this followup including assessment, plan, physical examination, patient education, review of records is 25 minutes. DICTATING PHYSICIAN: LORNA BLACKBURN NP [id number] PHY#: [id number] [id number] JOB#: [id number] ACCT: [id number] cc: > MTDD
[2017-09-12] MEDS: FERROUS SULFATE 325 MG TABLET PO SCH (17:15)
[2017-09-12] MEDS ORDERED: (PENDING PHARMACY ID) (Warfarin Sodium 2 MG) PO SCH (18:00)
[2017-09-12] MEDS: ATORVASTATIN CALCIUM 40 MG TABLET PO SCH (21:36)
[2017-09-12] MEDS: WARFARIN SODIUM 2 MG TABLET PO SCH (21:39)
[2017-09-13 06:19] LABS: ABSOLUTE EOSINOPHILS # (AUTO) 0.1 10^3/uL (0.0-0.6); ABSOLUTE LYMPHOCYTES (AUTO) 1.5 10^3/uL (0.5-4.7); ABSOLUTE MONOCYTES (AUTO) 0.6 10^3/uL (0.1-1.4); ABSOLUTE NEUT (AUTO) 4.5 10^3/uL (1.7-8.2); BASOPHILS % (AUTO) 0.6 % (0-2); EOSINOPHILS % (AUTO) 1.6 % (0-6); HEMATOCRIT 26.3 % (36.0-47.0); HEMOGLOBIN 8.8 g/dL (12.0-15.5); MEAN CORPUSCULAR HEMOGLOBIN 28.9 pg (27.0-33.4); MEAN CORPUSCULAR HGB CONC 33.7 g/dL (32.0-36.0); MEAN CORPUSCULAR VOLUME 86 fl (80-97); MONOCYTES % (AUTO) 9.1 % (3-13); PLATELET COUNT 245 10^3/uL (150-450); RED BLOOD COUNT 3.07 10^6/uL (3.72-5.28); RED CELL DISTRIBUTION WIDTH 14.7 % (11.5-14.0); SEGMENTED NEUTROPHILS % (AUTO) 66.7 % (42-78); TOTAL CELLS COUNTED % (AUTO) 100 %; WHITE BLOOD COUNT 6.7 10^3/uL (4.0-10.5)
[2017-09-13 06:30] LABS: INTERNATIONAL RATION (INR) 2.48; PROTHROMBIN TIME 28.1 SEC (11.4-15.4)
[2017-09-13] MEDS: LANSOPRAZOLE 30 MG TAB.RAP.DR PO SCH (06:44)
[2017-09-13 06:49] LABS: ALANINE AMINOTRANSFERASE 22 U/L (9-52); ALBUMIN 2.4 g/dL (3.5-5.0); ALKALINE PHOSPHATASE 98 U/L (38-126); ANION GAP 8 (5-19); ASPARTATE AMINO TRANSFERASE 25 U/L (14-36); BILIRUBIN,DIRECT 0.5 mg/dL (0.0-0.4); BILIRUBIN,TOTAL 0.5 mg/dL (0.2-1.3); BLOOD UREA NITROGEN 4 mg/dL (7-20); CALCIUM 8.9 mg/dL (8.4-10.2); CARBON DIOXIDE 20 mmol/L (22-30); CHLORIDE 113 mmol/L (98-107); GLUCOSE 94 mg/dL (75-110); SODIUM 141.4 mmol/L (137-145); TOTAL PROTEIN 5.5 g/dL (6.3-8.2)
[2017-09-13] MEDS: VANCOMYCIN HCL 1,500 MG in DEXTROSE 5%-WATER 250 ML IV SCH (08:24)
[2017-09-13] MEDS: FERROUS SULFATE 325 MG TABLET PO SCH ×3 (08:25→17:20)
[2017-09-13] MEDS: ACETAMINOPHEN 325 MG TABLET PO PRN ×2 (10:43→17:20)
[2017-09-13] MEDS: GUAIFENESIN 600 MG TABLET.SA PO SCH ×2 (10:45→21:40)
[2017-09-13] MEDS: CYCLOSPORINE 0.05% OPH EMULSIO 0.4 ML DROPERETTE OU SCH ×2 (10:50→21:40)
[2017-09-13] MEDS: DOCUSATE SODIUM 100 MG CAPSULE PO SCH ×2 (10:50→17:20)
[2017-09-13] MEDS: CARVEDILOL 12.5 MG TABLET PO SCH ×2 (10:50→21:40)
[2017-09-13] MEDS: PANTOPRAZOLE SODIUM 40 MG VIAL IV SCH ×2 (10:50→21:40)
[2017-09-13] MEDS: FUROSEMIDE 20 MG TABLET PO SCH (10:50)
[2017-09-13] MEDS: DILTIAZEM HCL 240 MG CAPSULE.CR PO SCH (10:50)
[2017-09-13] MEDS: CEFTRIAXONE 2 GM/D5W RTU 2 GM/50 ML RTUPB IV SCH (10:51)
[2017-09-13] MEDS: TRAMADOL HCL 50 MG TABLET PO PRN ×2 (14:11→21:55)
--- NOTE | 2017-09-13 15:59 | PROGRESS NOTE E ---
Progress Note NAME: LUIS CANALES : 1950 AGE: 67Y DATE: 09/13/2017 ROOM: 326 SUBJECTIVE: The patient is out of bed to the bedside chair. She states that she does not feel as well today as she did yesterday. She complains of headache as well as overall feeling of fatigue. The patient stated that her shortness of breath is improved. She is continuing to produce a good amount of sputum. The patient denies any nausea, vomiting, diarrhea. No dizziness or chest pain. The patient has been afebrile. Her blood pressures have been in a good range. The patient does not voice any other concerns at this time. BRIEF HISTORY: The patient has had 2 inpatient stays and 2 ER visits since the first of the year with complaints of syncope, overall not feeling well, cough and so forth. The patient was actually on our service August 13 through the as well as readmitted on the of this month. During these episodes the patient came in with complaints of syncope as well as subjective fevers. The patient did have a white count of 21,000. Given the patient's altered mental status, the patient did have an LP which has thus far been unremarkable. Patient even had some mild bandemia. The patient was covered, though, with ceftriaxone and vancomycin which has been efficacious as the patient's symptoms overall have improved. The patient does complain of a headache today. I did discuss the possibilities of a viral process; however, the patient has had numerous presentations. The patient has had significant cough, sputum production. Therefore, may be an underlying URI but the syncopal aspect is not certain and therefore the patient is still awaiting echocardiogram and Doppler. Additionally, the patient does have a pleural effusion but it does not appear to be empyema. The patient is not obstructed by her breathing. The patient is oxygenating well on room air and is comfortable from this standpoint. REVIEW OF SYSTEMS: Rest of review of systems is negative. MEDICATIONS: Medications have been reviewed. OBJECTIVE: GENERAL: The patient is a 67-year-old female who is awake and alert. She is oriented to person, place, time and situation. She is verbal, conversational. Does not appear to be in distress. VITAL SIGNS: As follows, temperature is 97.9, pulse 101, respirations 16, blood pressure is 114/61. Oxygen saturation 99% on room air. SKIN: Warm and dry. No rashes. She is not diaphoretic. HEENT: Pupils equal, round and reactive to light and accommodation. Conjunctiva pink. No evidence of JVP. CVS: Heart is regular. There is no murmur or rub. CHEST: Clear, symmetrical, somewhat diminished on the right side. ABDOMEN: Soft, nontender, nondistended. EXTREMITIES: No cyanosis, clubbing or edema. PSYCHIATRIC: Appropriate affect. Pleasant mood. DIAGNOSTICS: Lab values are as follows: Hematology obtained on 09/13/2017 WBC 6.7, hemoglobin 7.8, hematocrit 26.3, platelet count is 245,000. Coagulation studies obtained on 09/13/2017: PT is 28.1, INR is 2.48. Chemistry obtained on 09/13/2017: Sodium is 141, potassium 4.0, chloride is 113, carbon dioxide 20, BUN 4, creatinine 0.59, glucose 93, calcium is 8.9, magnesium is 1.9, bilirubin 0.5. AST 25, ALT is 22, alkaline phosphatase 98, total protein 5.5, albumin 2.4. IMPRESSION AND PLAN: 1. SEPSIS. Uncertain of the patient's exact etiology. The patient was febrile. She did have a white count, tachycardia, hypotension. Patient responded to a fluid bolus as well as antibiotic coverage. LP is not suggestive. Have continued current antibiotic coverage. White count has trended down nicely. Bandemia resolved. May have just a clinical pneumonia but the patient has had symptoms now since the first of the year. The patient does have pleural effusion, does not appear to be an empyema so this can just be monitored. Cultures have been unremarkable. 2. METABOLIC ENCEPHALOPATHY SECONDARY TO #1. This has completely resolved. 3. ACUTE BLOOD LOSS ANEMIA. The patient's hemoglobin overall appears stable. At this point she is iron deficient, will follow. 4. SYNCOPAL EPISODES. The patient is currently awaiting echocardiogram as well as carotid Doppler. 5. LIVER CYST. The patient has a history of known cirrhosis which [facility]. However, the patient's cysts are a newer presentation. AFP is pending. 6. HYPOKALEMIA. This was repleted. 7. PLEURAL EFFUSION. Again, will monitor this. The patient has no evidence of restrictive breathing. She is oxygenating well on room air. However, given the patient's finding of hepatic cyst and overall uncertain clinical picture, may benefit from diagnostic pleural effusion evaluation. 8. MALNUTRITION WITH AN ALBUMIN OF 2.6. May be due to hepatic dysfunction. 9. ATRIAL FIBRILLATION. Rate controlled and anticoagulated on Coumadin. DISPOSITION: The patient is a FULL CODE. Pending patient's symptomatology and diagnostic findings, will reevaluate in the a.m. TIME SPENT: Time spent on this followup including assessment, plan, physical examination, patient education, review of records is 35 minutes. DICTATING PHYSICIAN: LORNA BLACKBURN NP [id number] PHY#: [id number] ID: [id number] JOB#: [id number] ACCT: [id number] cc: > MTDD
[2017-09-13] MEDS: WARFARIN SODIUM 2 MG TABLET PO SCH (21:40)
[2017-09-13] MEDS: ATORVASTATIN CALCIUM 40 MG TABLET PO SCH (21:40)
[2017-09-14] MEDS: LANSOPRAZOLE 30 MG TAB.RAP.DR PO SCH (05:10)
[2017-09-14] MEDS ORDERED: PANTOPRAZOLE SODIUM 40 MG VIAL IV ONE (06:22)
[2017-09-14 07:28] LABS: VITAMIN B1 (THIAMINE) 159.2 nmol/L (66.5-200.0)
[2017-09-14 08:08] LABS: HEMATOCRIT 27.9 % (36.0-47.0); HEMOGLOBIN 9.4 g/dL (12.0-15.5); MEAN CORPUSCULAR HEMOGLOBIN 28.8 pg (27.0-33.4); MEAN CORPUSCULAR HGB CONC 33.8 g/dL (32.0-36.0); MEAN CORPUSCULAR VOLUME 85 fl (80-97); PLATELET COUNT 322 10^3/uL (150-450); RED BLOOD COUNT 3.28 10^6/uL (3.72-5.28); RED CELL DISTRIBUTION WIDTH 14.5 % (11.5-14.0); WHITE BLOOD COUNT 7.8 10^3/uL (4.0-10.5)
[2017-09-14] MEDS: VANCOMYCIN HCL 1,500 MG in DEXTROSE 5%-WATER 250 ML IV SCH (08:19)
[2017-09-14] MEDS: FERROUS SULFATE 325 MG TABLET PO SCH ×3 (08:21→17:37)
[2017-09-14 08:22] LABS: INTERNATIONAL RATION (INR) 2.32; PROTHROMBIN TIME 26.7 SEC (11.4-15.4)
[2017-09-14 08:31] LABS: ANION GAP 5 (5-19); CALCIUM 8.9 mg/dL (8.4-10.2); CARBON DIOXIDE 27 mmol/L (22-30); CHLORIDE 108 mmol/L (98-107); GLUCOSE 92 mg/dL (75-110); POTASSIUM 3.1 mmol/L (3.6-5.0); SODIUM 139.5 mmol/L (137-145)
[2017-09-14 08:32] LABS: BLOOD UREA NITROGEN < 2 mg/dL (7-20)
[2017-09-14 08:34] LABS: VANCOMYCIN,TROUGH 6.8 ug/mL (5.0-20.0)
--- NOTE | 2017-09-14 08:49 | RADIOLOGY REPORT (SQ) ---
EXAM DESCRIPTION: CHEST PA/LAT COMPLETED DATE/TIME: 09/14/2017 8:14 am REASON FOR STUDY: Evaluate effusion COMPARISON: 09/10/2017. EXAM PARAMETERS: NUMBER OF VIEWS: two views TECHNIQUE: Digital Frontal and Lateral radiographic views of the chest acquired. RADIATION DOSE: NA LIMITATIONS: none FINDINGS: LUNGS AND PLEURA: Slight increase in the right pleural effusion. Lungs otherwise generall y clear. MEDIASTINUM AND HILAR STRUCTURES: No masses or contour abnormalities. HEART AND VASCULAR STRUCTURES: Heart upper limits of normal size. No evidence for failure. BONES: No acute findings. HARDWARE: None in the chest. OTHER: No other significant finding. IMPRESSION: SLIGHT INCREASE IN THE RIGHT PLEURAL EFFUSION. TECHNICAL DOCUMENTATION: JOB ID: [id number] [employer]- All Rights Reserved
[2017-09-14] MEDS: CARVEDILOL 12.5 MG TABLET PO SCH ×2 (10:38→21:54)
[2017-09-14] MEDS: FUROSEMIDE 20 MG TABLET PO SCH (10:38)
[2017-09-14] MEDS: DOCUSATE SODIUM 100 MG CAPSULE PO SCH ×2 (10:38→17:37)
[2017-09-14] MEDS: CYCLOSPORINE 0.05% OPH EMULSIO 0.4 ML DROPERETTE OU SCH ×2 (10:38→21:54)
[2017-09-14] MEDS: DILTIAZEM HCL 240 MG CAPSULE.CR PO SCH (10:38)
[2017-09-14] MEDS: CEFTRIAXONE 2 GM/D5W RTU 2 GM/50 ML RTUPB IV SCH (10:38)
[2017-09-14] MEDS: GUAIFENESIN 600 MG TABLET.SA PO SCH ×2 (10:38→21:54)
--- NOTE | 2017-09-14 12:33 | PDOC PROGRESS REPORT ---
Subjective Progress Note for:: 09/14/17 Subjective:: The patient is a 67-year-old female admitted with a fever, syncope and hypotension. So far, her LP is unremarkable. She does have an increasing size of a right pleural effusion and liver cysts that require further evaluation. However, she is on Coumadin and fully anticoagulated. Today, she is without any complaints and she states that she is actually feeling better. Reason For Visit: SIRS, METOBOLIC ENCEPHALOPATHY, FEBRILE ILLNESS Physical Exam Vital Signs: Temp Pulse Resp BP Pulse Ox 98.7 F 121 H 18 125/79 97 09/14/17 11:27 09/14/17 11:27 09/14/17 11:27 09/14/17 11:27 09/14/17 11:27 Intake & Output 09/13/17 09/14/17 09/15/17 06:59 06:59 06:59 Intake Total 1740 2455 118 Balance 1740 2455 118 Weight 71.6 kg 72.8 kg Additional comments: The patient appears to be healthy. When I entered the room she was actually getting an ultrasound at the bedside. An echocardiogram was done this morning followed by carotid Dopplers. She is curious as to why she keeps having these problems. She wants me to talk to her daughter. However, this morning she has no physical complaints except for a slight dry cough. Otherwise, she is feeling well. Her facial appearance is unremarkable. Her lungs are noted to be clear to auscultation bilaterally. Her cardiac exam demonstrates an irregularly irregular rhythm. Her abdomen is soft and flat. Bowel sounds are present. She does not have guarding or rebound noted and there are no hernias or masses present. Her lower extremities are unremarkable. No edema is present. Her skin is warm, clean, dry and intact. Results Laboratory Results: 09/14/17 07:55 09/14/17 07:55 09/11/17 09/14/17 09/14/17 07:14 07:55 07:55 WBC 7.8 RBC 3.28 L Hgb 9.4 L Hct 27.9 L MCV 85 MCH 28.8 MCHC 33.8 RDW 14.5 H Plt Count 322 Sodium 139.5 Potassium 3.1 L Chloride 108 H Carbon Dioxide 27 Anion Gap 5 BUN < 2 L Creatinine 0.61 Est GFR ( Amer) > 60 Est GFR (Non-Af Amer) > 60 Glucose 92 Calcium 8.9 Magnesium 1.9 Vitamin B1 159.2 09/11/17 09/11/17 09/14/17 07:14 07:14 07:55 Creatine Kinase 21 L CK-MB (CK-2) 0.26 NT-Pro-B Natriuret Pep 2150 H Impressions: Abdomen/Pelvis CT 09/10/17 18:23 IMPRESSION: Multiple hepatic cystic masses with at least 1 large complex cystic mass. Other lesions appear to be purely cystic. Differential is broad but includes tumor, abscesses including amebic and hydatid abscesses, cholangiocarcinoma. Moderate right pleural effusion with compressive atelectasis. Chest CT 09/10/17 18:23 IMPRESSION: Multiple hepatic cystic masses with at least 1 large complex cystic mass. Other lesions appear to be purely cystic. Differential is broad but includes tumor, abscesses including amebic and hydatid abscesses, cholangiocarcinoma. Moderate right pleural effusion with compressive atelectasis. Chest X-Ray 09/14/17 06:00 IMPRESSION: SLIGHT INCREASE IN THE RIGHT PLEURAL EFFUSION. Assessment & Plan - Diagnosis (1) Acute blood loss anemia Is this a current diagnosis for this admission?: Yes (2) Hypokalemia Is this a current diagnosis for this admission?: Yes (3) Liver cyst Is this a current diagnosis for this admission?: Yes (4) Malnutrition Qualifiers: Malnutrition type: protein-calorie malnutrition Is this a current diagnosis for this admission?: Yes (5) Pleural effusion Is this a current diagnosis for this admission?: Yes (7) Syncopal episodes Is this a current diagnosis for this admission?: Yes (9) Atrial fibrillation Qualifiers: Atrial fibrillation type: chronic Qualified Code(s): I48.2 - Chronic atrial fibrillation Is this a current diagnosis for this admission?: Yes (11) Metabolic encephalopathy Is this a current diagnosis for this admission?: Yes - Time Time Spent with patient: 25-34 minutes - Inpatient Certification Medical Necessity: Failure to Improve With Outpatient Therapy, Need for IV Antibiotics, Risk of Complication if Not Cared For in Hospital, Risk of Diagnosis Which Will Require Inpatient Eval/Care/Monitoring - Plan Summary Plan Summary: Patient presented with evidence of Sirs criteria. We are presuming that she has sepsis secondary to an underlying infection, possibly pneumonia, actively ONLINE SERVICES MANAGER. At this point time I would like Dr. Duff to come by and evaluate her. I would like to stop her Coumadin. I can place her on a Lovenox window to perform thoracentesis. Also, I think that we need to further evaluate these cysts. Her metabolic encephalopathy has improved. I do not see any workup for the acute blood loss. I will look into this further. I will replace her potassium. I will follow up on results of echocardiogram and Dopplers.
--- NOTE | 2017-09-14 12:56 | XCELERA REPORT ---
[address] [address] Transthoracic Echocardiogram Report Name: LUIS CANALES Age: 67 yrs Gender: Female : 1950 Patient Status: Inpatient Patient Location: [address] [place] [address] Study Date: 09/14/2017 09:09 AM Height: 65 in Weight: 165 lb BSA: 1.8 m2 Procedure: A complete two-dimensional transthoracic echocardiogram was performed (2D, M-mode, spectral and color flow Doppler). The study was technically adequate with some images being suboptimal in quality. Reason For Study: syncope Ordering Physician: DENISSE MEYER Performed By: Faby Pan Interpretation Summary The left ventricular ejection fraction is normal. Doppler measurements suggest pseudonormalized left ventricular relaxation, which is associated with grade II/IV or mild to moderate diastolic dysfunction There is borderline concentric left ventricular hypertrophy. The left ventricle is grossly normal size. Wall motion cannot be accurately commented on, but no definite regional wall motion abnormalities noted. The right ventricular systolic function is normal. The left atrium is moderately dilated. There is no mitral valve stenosis. There is a mild to moderate amount of mitral regurgitation There is no aortic valve stenosis There is a trace amount of aortic regurgitation There is a trace to mild amount of tricuspid regurgitation There is mild pulmonary hypertension by echo Right ventricular systolic pressure is estimated to be elevated at 30- 40mmHg. The inferior vena cava appeared normal and decreased < 50% with respiration (RAP 10-15 mmHg) Minimal pericardial effusion. Large Hepatic Cysts noted. Rec U/S liver or CT abdomeb MMode/2D Measurements & Calculations RVDd: 2.8 cm LVIDd: 4.6 cm FS: 35.6 % Ao root diam: 2.7 cm IVSd: 0.88 cm LVIDs: 3.0 cm EDV(Teich): LVPWd: 0.84 cm 97.7 ml Ao root area: 5.6 cm2 ESV(Teich): LA dimension: 4.4 cm 34.1 ml EF(Teich): 65.1 % LA A2Cs: LA A4Cs: LA length: 5.6 cmLA Vol Index (BP): 19.4 cm2 22.7 cm2 36.7 ml/m2 LA Volume: 66.8 ml Doppler Measurements & Calculations MV E max admaa: MV P1/2t max adama: Ao V2 max: LV V1 max P.4 cm/sec 126.4 cm/sec 107.8 cm/sec 2.5 mmHg MV A max adama: MV P1/2t: 44.1 msec Ao max PG: LV V1 max: 6.6 cm/sec 4.6 mmHg 79.5 cm/sec MV E/A: 19.1 MVA(P1/2t): 5.0 cm2 MV dec slope: 839.4 cm/sec2 MV dec time: 0.16 sec PA V2 max: PI end-d adama: TR max adama: 83.4 cm/sec 119.4 cm/sec 251.1 cm/sec PA max P.8 mmHg TR max P.2 mmHg Left Ventricle The left ventricle is grossly normal size. There is borderline concentric left ventricular hypertrophy. The left ventricular ejection fraction is normal. Doppler measurements suggest pseudonormalized left ventricular relaxation, which is associated with grade II/IV or mild to moderate diastolic dysfunction. Wall motion cannot be accurately commented on, but no definite regional wall motion abnormalities noted. Right Ventricle The right ventricle is grossly normal size. There is normal right ventricular wall thickness. The right ventricular systolic function is normal. Atria The right atrium is mildly dilated. The left atrium is moderately dilated. Interarterial septum not well visualized and not well dopplered. Cannot comment on ASD/PFO presence. Mitral Valve The mitral valve is grossly normal. There is no mitral valve stenosis. There is a mild to moderate amount of mitral regurgitation. Aortic Valve The aortic valve is grossly normal. There is no aortic valve stenosis. There is a trace amount of aortic regurgitation. Tricuspid Valve The tricuspid valve is not well visualized, but is grossly normal. There is no tricuspid stenosis. There is a trace to mild amount of tricuspid regurgitation. There is mild pulmonary hypertension by echo. Right ventricular systolic pressure is estimated to be elevated at 30-40mmHg. Pulmonic Valve The pulmonic valve is not well visualized. Great Vessels The aortic root is not well visualized but is probably normal size. The inferior vena cava appeared normal and decreased < 50% with respiration (RAP 10-15 mmHg). Effusions Minimal pericardial effusion. Incidental Findings Large Hepatic Cysts noted. Rec U/S liver or CT abdomeb. : DENISSE MEYER > René Norris
[2017-09-14] MEDS ORDERED: POTASSIUM CHLORIDE 10 MEQ TABLET.SA PO ONE (13:00)
--- NOTE | 2017-09-14 13:09 | RADIOLOGY REPORT (SQ) ---
EXAM DESCRIPTION: CAROTID DOPPLER COMPLETED DATE/TIME: 09/14/2017 12:11 pm REASON FOR STUDY: syncope COMPARISON: 03/04/2015. TECHNIQUE: Grayscale ultrasound, Doppler velocity and spectra, and color Doppler images acquired of the extra-cranial carotid and vertebral arteries. Images stored on PACS. LIMITATIONS: None. FINDINGS: RIGHT CAROTID CCA Velocities: Within normal limits. ICA Velocities Peak systolic 0.92 m/s. End diastolic 0.44 m/s. Proximal ICA/CCA peak systolic ratio 1.9. Spectra normal. No significant plaque. LEFT CAROTID CCA Velocities: Within normal limits. ICA Velocities Peak systolic 0.95 m/s. End diastolic 0.35 m/s. Proximal ICA/CCA peak systolic ratio 1.3. Spectra normal. No significant plaque. VERTEBRAL ARTERIES: Antegrade flow. Normal waveforms. SUBCLAVIAN ARTERIES: No finding. OTHER: No other significant finding. IMPRESSION: NO HEMODYNAMICALLY SIGNIFICANT STENOSIS. COMMENT: Quality ID #[id number]: Velocity criteria are extrapolated from the diameter data as defined by t he Society of Radiologists in Ultrasound Consensus Conference. Radiology 2003: 229; 340-346. TECHNICAL DOCUMENTATION: JOB ID: [id number] [employer]- All Rights Reserved
[2017-09-14 13:38] LABS: DILUTE RUSSELL VIPOR VENOM 85.1 sec (0.0-47.0); DRVVT MIX 43.4 sec (0.0-47.0); HEXAGONAL PHASE PHOSPHOLIPID 7 sec (0-11); PTT-LA 87.7 sec (0.0-51.9); THROMBIN TIME 19.3 sec (0.0-23.0)
[2017-09-14 14:55] LABS: LUPUS PANEL INTERPRETATION Comment: (.)
[2017-09-14] MEDS: VANCOMYCIN HCL 1,000 MG in DEXTROSE 5%-WATER 250 ML IV SCH (17:38)
[2017-09-14] MEDS: ATORVASTATIN CALCIUM 40 MG TABLET PO SCH (21:53)
[2017-09-15] MEDS: LANSOPRAZOLE 30 MG TAB.RAP.DR PO SCH (06:48)
[2017-09-15] MEDS: VANCOMYCIN HCL 1,000 MG in DEXTROSE 5%-WATER 250 ML IV SCH ×2 (07:01→18:33)
[2017-09-15 07:03] LABS: ABSOLUTE EOSINOPHILS # (AUTO) 0.1 10^3/uL (0.0-0.6); ABSOLUTE LYMPHOCYTES (AUTO) 1.9 10^3/uL (0.5-4.7); ABSOLUTE MONOCYTES (AUTO) 0.9 10^3/uL (0.1-1.4); ABSOLUTE NEUT (AUTO) 5.2 10^3/uL (1.7-8.2); ABSOLUTE RETICS # 0.092 10^6/uL (0.028-0.122); BASOPHILS % (AUTO) 0.5 % (0-2); EOSINOPHILS % (AUTO) 0.7 % (0-6); HEMATOCRIT 27.1 % (36.0-47.0); HEMOGLOBIN 9.2 g/dL (12.0-15.5); LYMPHOCYTES % (AUTO) 23.3 % (13-45); MEAN CORPUSCULAR HEMOGLOBIN 29.2 pg (27.0-33.4); MEAN CORPUSCULAR HGB CONC 33.9 g/dL (32.0-36.0); MEAN CORPUSCULAR VOLUME 86 fl (80-97); MONOCYTES % (AUTO) 11.4 % (3-13); PLATELET COUNT 336 10^3/uL (150-450); RED BLOOD COUNT 3.15 10^6/uL (3.72-5.28); RED CELL DISTRIBUTION WIDTH 14.7 % (11.5-14.0); RETICULOCYTE COUNT (AUTO) 2.93 % (0.66-2.85); SEGMENTED NEUTROPHILS % (AUTO) 64.1 % (42-78); TOTAL CELLS COUNTED % (AUTO) 100 %; WHITE BLOOD COUNT 8.2 10^3/uL (4.0-10.5)
[2017-09-15 07:08] LABS: INTERNATIONAL RATION (INR) 2.36; PROTHROMBIN TIME 27.1 SEC (11.4-15.4)
[2017-09-15 07:14] LABS: VITAMIN D 1,25 DIHYDROXY 94.5 pg/mL (19.9-79.3)
[2017-09-15 07:19] LABS: ANION GAP 5 (5-19); BLOOD UREA NITROGEN 2 mg/dL (7-20); CALCIUM 8.9 mg/dL (8.4-10.2); CARBON DIOXIDE 28 mmol/L (22-30); CHLORIDE 108 mmol/L (98-107); GLUCOSE 94 mg/dL (75-110); IRON(TIBC) 24.1 ug/dL (37-170); POTASSIUM 3.4 mmol/L (3.6-5.0); SODIUM 140.7 mmol/L (137-145)
[2017-09-15 08:25] LABS: FOLATE 9.96 ng/mL (>2.76)
[2017-09-15] MEDS: CARVEDILOL 12.5 MG TABLET PO SCH ×2 (09:13→21:20)
[2017-09-15] MEDS: GUAIFENESIN 600 MG TABLET.SA PO SCH ×2 (09:13→21:20)
[2017-09-15] MEDS: DOCUSATE SODIUM 100 MG CAPSULE PO SCH ×2 (09:13→18:22)
[2017-09-15] MEDS: CEFTRIAXONE 2 GM/D5W RTU 2 GM/50 ML RTUPB IV SCH (09:15)
[2017-09-15] MEDS: CYCLOSPORINE 0.05% OPH EMULSIO 0.4 ML DROPERETTE OU SCH ×2 (09:15→21:21)
[2017-09-15] MEDS: DILTIAZEM HCL 240 MG CAPSULE.CR PO SCH (09:15)
[2017-09-15] MEDS: FUROSEMIDE 20 MG TABLET PO SCH (09:15)
[2017-09-15] MEDS: FERROUS SULFATE 325 MG TABLET PO SCH ×3 (09:16→16:04)
[2017-09-15] MEDS ORDERED: POTASSIUM CHLORIDE 10 MEQ TABLET.SA PO ONE (13:34)
--- NOTE | 2017-09-15 13:40 | PDOC PROGRESS REPORT ---
Subjective Progress Note for:: 09/15/17 Subjective:: The patient is a 67-year-old female admitted with a fever, syncope and hypotension. So far, her LP is unremarkable. She does have an increasing size of a right pleural effusion and liver cysts that require further evaluation. The patient's carotid Dopplers and echocardiogram were done yesterday. The results are not concerning. Today, I explained to the patient and her daughter what my plan is. We are going to hold the patient's Coumadin and perform a thoracentesis. Pending these results we may have the patient follow-up at [facility] in regards to these liver cysts. Today, the patient states that she is actually feeling well. Her dry cough is resolved. She has no complaints. Reason For Visit: SIRS, METOBOLIC ENCEPHALOPATHY, FEBRILE ILLNESS Physical Exam Vital Signs: Temp Pulse Resp BP Pulse Ox 97.7 F 86 24 H 112/67 98 09/15/17 11:17 09/15/17 11:17 09/15/17 11:17 09/15/17 11:17 09/15/17 11:17 Intake & Output 09/14/17 09/15/17 09/16/17 06:59 06:59 06:59 Intake Total 2455 1616 150 Balance 2455 1616 150 Weight 72.8 kg 71 kg Additional comments: The patient appears to be a very healthy female. She is not in any distress. Her facial appearance is unremarkable. Her lungs are clear to auscultation bilaterally. Her cardiac exam is regular without murmurs, gallops or rubs. The abdomen is soft and flat. Bowel sounds are present in the lower quadrants. The lower extremities are warm without any pitting edema. The skin is clean, warm, dry and intact without lesions or rashes. Results Laboratory Results: 09/15/17 06:03 09/15/17 06:03 09/15/17 09/15/17 06:03 06:03 WBC 8.2 RBC 3.15 L Hgb 9.2 L Hct 27.1 L MCV 86 MCH 29.2 MCHC 33.9 RDW 14.7 H Plt Count 336 Seg Neutrophils % 64.1 Lymphocytes % 23.3 Monocytes % 11.4 Eosinophils % 0.7 Basophils % 0.5 Absolute Neutrophils 5.2 Absolute Lymphocytes 1.9 Absolute Monocytes 0.9 Absolute Eosinophils 0.1 Absolute Basophils 0.0 Retic Count (auto) 2.93 H Absolute Retic 0.092 Sodium 140.7 Potassium 3.4 L Chloride 108 H Carbon Dioxide 28 Anion Gap 5 BUN 2 L Creatinine 0.64 Est GFR ( Amer) > 60 Est GFR (Non-Af Amer) > 60 Glucose 94 Calcium 8.9 Magnesium 1.9 Iron 24.1 L TIBC 219 L % Saturation 11 Ferritin 348.00 H Vitamin B12 906.0 Folate 9.96 09/11/17 09/11/17 09/14/17 07:14 07:14 07:55 Creatine Kinase 21 L CK-MB (CK-2) 0.26 NT-Pro-B Natriuret Pep 2150 H Impressions: Abdomen/Pelvis CT 09/10/17 18:23 IMPRESSION: Multiple hepatic cystic masses with at least 1 large complex cystic mass. Other lesions appear to be purely cystic. Differential is broad but includes tumor, abscesses including amebic and hydatid abscesses, cholangiocarcinoma. Moderate right pleural effusion with compressive atelectasis. Chest CT 09/10/17 18:23 IMPRESSION: Multiple hepatic cystic masses with at least 1 large complex cystic mass. Other lesions appear to be purely cystic. Differential is broad but includes tumor, abscesses including amebic and hydatid abscesses, cholangiocarcinoma. Moderate right pleural effusion with compressive atelectasis. Carotid Doppler Study 09/14/17 00:00 IMPRESSION: NO HEMODYNAMICALLY SIGNIFICANT STENOSIS. Chest X-Ray 09/14/17 06:00 IMPRESSION: SLIGHT INCREASE IN THE RIGHT PLEURAL EFFUSION. Assessment & Plan - Diagnosis (1) Acute blood loss anemia Is this a current diagnosis for this admission?: Yes (2) Hypokalemia Is this a current diagnosis for this admission?: Yes (3) Liver cyst Is this a current diagnosis for this admission?: Yes (4) Malnutrition Qualifiers: Malnutrition type: protein-calorie malnutrition Is this a current diagnosis for this admission?: Yes (5) Pleural effusion Is this a current diagnosis for this admission?: Yes (7) Syncopal episodes Is this a current diagnosis for this admission?: Yes (9) Atrial fibrillation Qualifiers: Atrial fibrillation type: chronic Qualified Code(s): I48.2 - Chronic atrial fibrillation Is this a current diagnosis for this admission?: Yes (11) Metabolic encephalopathy Is this a current diagnosis for this admission?: Yes - Time Time Spent with patient: 25-34 minutes - Inpatient Certification Medical Necessity: Need for IV Antibiotics - Plan Summary Plan Summary: Patient presented with evidence of Sirs criteria. We are presuming that she has sepsis secondary to an underlying infection, possibly pneumonia, less likely GENERAL LEDGER ACCOUNTANT. I spoke with the patient's auto washer last evening. He feels that it is okay to temporarily interrupt her Coumadin. Today, I spoke at length with the daughter and the patient. We are going to proceed with thoracentesis. We need to rule out empyema. The patient is looking well. If thoracentesis is unremarkable I think that the patient can be discharged on oral therapy with close follow-up at [facility] for these liver cysts.
[2017-09-15] MEDS: ATORVASTATIN CALCIUM 40 MG TABLET PO SCH (21:20)
[2017-09-16] MEDS: VANCOMYCIN HCL 1,000 MG in DEXTROSE 5%-WATER 250 ML IV SCH ×2 (06:35→17:37)
[2017-09-16] MEDS: LANSOPRAZOLE 30 MG TAB.RAP.DR PO SCH (06:35)
[2017-09-16 06:41] LABS: ABSOLUTE EOSINOPHILS # (AUTO) 0.1 10^3/uL (0.0-0.6); ABSOLUTE LYMPHOCYTES (AUTO) 2.2 10^3/uL (0.5-4.7); ABSOLUTE NEUT (AUTO) 5.7 10^3/uL (1.7-8.2); BASOPHILS % (AUTO) 0.5 % (0-2); EOSINOPHILS % (AUTO) 1.2 % (0-6); HEMATOCRIT 26.4 % (36.0-47.0); LYMPHOCYTES % (AUTO) 24.5 % (13-45); MEAN CORPUSCULAR HEMOGLOBIN 29.2 pg (27.0-33.4); MEAN CORPUSCULAR VOLUME 86 fl (80-97); PLATELET COUNT 359 10^3/uL (150-450); RED BLOOD COUNT 3.07 10^6/uL (3.72-5.28); RED CELL DISTRIBUTION WIDTH 15.2 % (11.5-14.0); SEGMENTED NEUTROPHILS % (AUTO) 62.8 % (42-78); TOTAL CELLS COUNTED % (AUTO) 100 %; WHITE BLOOD COUNT 9.1 10^3/uL (4.0-10.5)
[2017-09-16 06:52] LABS: ANION GAP 7 (5-19); BLOOD UREA NITROGEN 2 mg/dL (7-20); CALCIUM 8.9 mg/dL (8.4-10.2); CARBON DIOXIDE 27 mmol/L (22-30); CHLORIDE 107 mmol/L (98-107); GLUCOSE 97 mg/dL (75-110); POTASSIUM 3.6 mmol/L (3.6-5.0); SODIUM 141.1 mmol/L (137-145)
[2017-09-16 06:57] LABS: VANCOMYCIN,TROUGH 12.4 ug/mL (5.0-20.0)
[2017-09-16 07:02] LABS: INTERNATIONAL RATION (INR) 1.95; PROTHROMBIN TIME 23.3 SEC (11.4-15.4)
[2017-09-16] MEDS: CEFTRIAXONE 2 GM/D5W RTU 2 GM/50 ML RTUPB IV SCH (10:02)
[2017-09-16] MEDS: CYCLOSPORINE 0.05% OPH EMULSIO 0.4 ML DROPERETTE OU SCH ×2 (10:02→21:37)
[2017-09-16] MEDS: DOCUSATE SODIUM 100 MG CAPSULE PO SCH ×2 (10:03→16:53)
[2017-09-16] MEDS: FERROUS SULFATE 325 MG TABLET PO SCH ×3 (10:03→16:53)
[2017-09-16] MEDS: DILTIAZEM HCL 240 MG CAPSULE.CR PO SCH (10:03)
[2017-09-16] MEDS: GUAIFENESIN 600 MG TABLET.SA PO SCH ×2 (10:03→21:37)
[2017-09-16] MEDS: FUROSEMIDE 20 MG TABLET PO SCH (10:04)
[2017-09-16] MEDS: CARVEDILOL 12.5 MG TABLET PO SCH ×2 (10:04→21:37)
--- NOTE | 2017-09-16 17:50 | PDOC PROGRESS REPORT ---
Subjective Progress Note for:: 09/16/17 Subjective:: The patient is a 67-year-old female admitted with a fever, syncope and hypotension. LP remains negative. Cultures remain negative. Today, the patient does have a cough which is becoming more productive. Reason For Visit: SIRS, METOBOLIC ENCEPHALOPATHY, FEBRILE ILLNESS Physical Exam Vital Signs: Temp Pulse Resp BP Pulse Ox 97.5 F 87 18 116/63 99 09/16/17 12:45 09/16/17 14:00 09/16/17 12:45 09/16/17 12:45 09/16/17 12:45 Intake & Output 09/15/17 09/16/17 09/17/17 06:59 06:59 06:59 Intake Total 1616 1806 Balance 1616 1806 Weight 71 kg 71.2 kg Additional comments: The patient continues to look well. Her mentation is appropriate. The patient' s lungs are unremarkable. She has some decreased breath sounds in the right posterior lung field only. Otherwise, they are clear to auscultation bilaterally. Her cardiac exam is regular without murmurs, gallops or rubs. The abdomen is soft and flat. She does not have guarding or rebound noted and there are no hernias or masses present. The lower extremities are unremarkable without edema. The skin remains clean, warm, dry and intact without lesions or rashes. Results Laboratory Results: 09/16/17 05:39 09/16/17 05:39 09/15/17 09/16/17 09/16/17 05:55 05:39 05:39 WBC 9.1 RBC 3.07 L Hgb 9.0 L Hct 26.4 L MCV 86 MCH 29.2 MCHC 34.0 RDW 15.2 H Plt Count 359 Seg Neutrophils % 62.8 Lymphocytes % 24.5 Monocytes % 11.0 Eosinophils % 1.2 Basophils % 0.5 Absolute Neutrophils 5.7 Absolute Lymphocytes 2.2 Absolute Monocytes 1.0 Absolute Eosinophils 0.1 Absolute Basophils 0.0 Sodium 141.1 Potassium 3.6 Chloride 107 Carbon Dioxide 27 Anion Gap 7 BUN 2 L Creatinine 0.62 Est GFR ( Amer) > 60 Est GFR (Non-Af Amer) > 60 Glucose 97 Calcium 8.9 Magnesium 2.1 Transferrin 129 L 09/11/17 09/11/17 09/14/17 07:14 07:14 07:55 Creatine Kinase 21 L CK-MB (CK-2) 0.26 NT-Pro-B Natriuret Pep 2150 H Impressions: Abdomen/Pelvis CT 09/10/17 18:23 IMPRESSION: Multiple hepatic cystic masses with at least 1 large complex cystic mass. Other lesions appear to be purely cystic. Differential is broad but includes tumor, abscesses including amebic and hydatid abscesses, cholangiocarcinoma. Moderate right pleural effusion with compressive atelectasis. Chest CT 09/10/17 18:23 IMPRESSION: Multiple hepatic cystic masses with at least 1 large complex cystic mass. Other lesions appear to be purely cystic. Differential is broad but includes tumor, abscesses including amebic and hydatid abscesses, cholangiocarcinoma. Moderate right pleural effusion with compressive atelectasis. Carotid Doppler Study 09/14/17 00:00 IMPRESSION: NO HEMODYNAMICALLY SIGNIFICANT STENOSIS. Chest X-Ray 09/14/17 06:00 IMPRESSION: SLIGHT INCREASE IN THE RIGHT PLEURAL EFFUSION. Assessment & Plan - Diagnosis (1) Acute blood loss anemia Is this a current diagnosis for this admission?: Yes (2) Hypokalemia Is this a current diagnosis for this admission?: Yes (3) Liver cyst Is this a current diagnosis for this admission?: Yes (4) Malnutrition Qualifiers: Malnutrition type: protein-calorie malnutrition Is this a current diagnosis for this admission?: Yes (5) Pleural effusion Is this a current diagnosis for this admission?: Yes (7) Syncopal episodes Is this a current diagnosis for this admission?: Yes (9) Atrial fibrillation Qualifiers: Atrial fibrillation type: chronic Qualified Code(s): I48.2 - Chronic atrial fibrillation Is this a current diagnosis for this admission?: Yes (11) Metabolic encephalopathy Is this a current diagnosis for this admission?: Yes - Time Time Spent with patient: 15-24 minutes - Inpatient Certification Medical Necessity: Need for IV Antibiotics, Need for Surgery - Plan Summary Plan Summary: The patient presents with anemia, but, her indices are most consistent with anemia of chronic disease. Certainly, this goes along with her overall presentation. At this point in time we are waiting for her INR to trend down. I anticipate that the thoracentesis will be able to be done tomorrow. Coumadin is on hold for her atrial fibrillation. I did discuss this with cardiology. Her metabolic encephalopathy has resolved. Her sepsis is resolving. We will continue full coverage with antibiotic therapy of ceftriaxone and vancomycin at this time. Again, I am suspicious that her disease process is involving the liver cysts. We have additional information from the thoracentesis I will arrange for follow-up at [facility]. Because the patient is a clinically stable I think this this can be done as an outpatient.
[2017-09-16] MEDS: ATORVASTATIN CALCIUM 40 MG TABLET PO SCH (21:38)
[2017-09-17 05:45] LABS: INTERNATIONAL RATION (INR) 1.62; PROTHROMBIN TIME 20.2 SEC (11.4-15.4)
[2017-09-17 05:51] LABS: ABSOLUTE BASOPHILS # (AUTO) 0.1 10^3/uL (0.0-0.2); ABSOLUTE EOSINOPHILS # (AUTO) 0.1 10^3/uL (0.0-0.6); ABSOLUTE LYMPHOCYTES (AUTO) 2.3 10^3/uL (0.5-4.7); ABSOLUTE MONOCYTES (AUTO) 1.1 10^3/uL (0.1-1.4); ABSOLUTE NEUT (AUTO) 5.8 10^3/uL (1.7-8.2); BASOPHILS % (AUTO) 0.6 % (0-2); EOSINOPHILS % (AUTO) 1.3 % (0-6); HEMATOCRIT 27.5 % (36.0-47.0); HEMOGLOBIN 9.3 g/dL (12.0-15.5); LYMPHOCYTES % (AUTO) 24.7 % (13-45); MEAN CORPUSCULAR HEMOGLOBIN 28.9 pg (27.0-33.4); MEAN CORPUSCULAR HGB CONC 33.7 g/dL (32.0-36.0); MEAN CORPUSCULAR VOLUME 86 fl (80-97); MONOCYTES % (AUTO) 11.7 % (3-13); PLATELET COUNT 378 10^3/uL (150-450); RED BLOOD COUNT 3.21 10^6/uL (3.72-5.28); RED CELL DISTRIBUTION WIDTH 15.1 % (11.5-14.0); SEGMENTED NEUTROPHILS % (AUTO) 61.7 % (42-78); TOTAL CELLS COUNTED % (AUTO) 100 %; WHITE BLOOD COUNT 9.4 10^3/uL (4.0-10.5)
[2017-09-17 06:06] LABS: ANION GAP 9 (5-19); BLOOD UREA NITROGEN 3 mg/dL (7-20); CARBON DIOXIDE 26 mmol/L (22-30); CHLORIDE 107 mmol/L (98-107); GLUCOSE 108 mg/dL (75-110); POTASSIUM 3.4 mmol/L (3.6-5.0); SODIUM 141.6 mmol/L (137-145)
[2017-09-17] MEDS: LANSOPRAZOLE 30 MG TAB.RAP.DR PO SCH (06:15)
[2017-09-17] MEDS: VANCOMYCIN HCL 1,000 MG in DEXTROSE 5%-WATER 250 ML IV SCH ×2 (06:15→18:49)
[2017-09-17] MEDS: FERROUS SULFATE 325 MG TABLET PO SCH ×3 (09:02→18:49)
[2017-09-17] MEDS: CARVEDILOL 12.5 MG TABLET PO SCH ×2 (09:04→21:40)
[2017-09-17] MEDS: GUAIFENESIN 600 MG TABLET.SA PO SCH ×2 (09:05→21:41)
[2017-09-17] MEDS: DOCUSATE SODIUM 100 MG CAPSULE PO SCH ×2 (09:05→18:49)
[2017-09-17] MEDS: CYCLOSPORINE 0.05% OPH EMULSIO 0.4 ML DROPERETTE OU SCH ×2 (09:06→21:41)
[2017-09-17] MEDS: FUROSEMIDE 20 MG TABLET PO SCH (09:06)
[2017-09-17] MEDS: DILTIAZEM HCL 240 MG CAPSULE.CR PO SCH (09:06)
[2017-09-17] MEDS: CEFTRIAXONE 2 GM/D5W RTU 2 GM/50 ML RTUPB IV SCH (09:07)
[2017-09-17] MEDS ORDERED: POTASSIUM CHLORIDE 10 MEQ TABLET.SA PO ONE (09:30)
--- NOTE | 2017-09-17 16:55 | PDOC PROGRESS REPORT ---
Subjective Progress Note for:: 09/17/17 Subjective:: The patient is a 67-year-old female admitted with a fever, syncope and hypotension. LP remains negative. Cultures remain negative. She has an intermittent cough. At times, her cough is dry and at times it is productive of white phlegm. 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 Reason For Visit: SIRS, METOBOLIC ENCEPHALOPATHY, FEBRILE ILLNESS Physical Exam Vital Signs: Temp Pulse Resp BP Pulse Ox 98.3 F 72 16 104/72 100 09/17/17 11:24 09/17/17 14:00 09/17/17 11:24 09/17/17 11:24 09/17/17 11:24 Intake & Output 09/16/17 09/17/17 09/18/17 06:59 06:59 06:59 Intake Total 1806 960 400 Balance 1806 960 400 Weight 71.2 kg 71.6 kg Additional comments: The patient is in good spirits today. She does not appear to be anxious about the thoracentesis. She had an uneventful night. Her cough is fairly minimal at present. Her facial appearance is unremarkable. Her lungs remain clear. Initially, she had some crackles in the left base but these cleared with deep inspiration. Her cardiac exam is regular without murmurs, gallops or rubs. The abdomen is soft and flat. Bowel sounds are present in the lower quadrants. The lower extremities are unremarkable. She does not have any edema present. Skin is warm dry and intact without lesions or rashes. Results Laboratory Results: 09/17/17 05:02 09/17/17 05:02 09/17/17 09/17/17 05:02 05:02 WBC 9.4 RBC 3.21 L Hgb 9.3 L Hct 27.5 L MCV 86 MCH 28.9 MCHC 33.7 RDW 15.1 H Plt Count 378 Seg Neutrophils % 61.7 Lymphocytes % 24.7 Monocytes % 11.7 Eosinophils % 1.3 Basophils % 0.6 Absolute Neutrophils 5.8 Absolute Lymphocytes 2.3 Absolute Monocytes 1.1 Absolute Eosinophils 0.1 Absolute Basophils 0.1 Sodium 141.6 Potassium 3.4 L Chloride 107 Carbon Dioxide 26 Anion Gap 9 BUN 3 L Creatinine 0.56 Est GFR ( Amer) > 60 Est GFR (Non-Af Amer) > 60 Glucose 108 Calcium 9.0 Magnesium 2.1 09/11/17 09/11/17 09/14/17 07:14 07:14 07:55 Creatine Kinase 21 L CK-MB (CK-2) 0.26 NT-Pro-B Natriuret Pep 2150 H Impressions: Abdomen/Pelvis CT 09/10/17 18:23 IMPRESSION: Multiple hepatic cystic masses with at least 1 large complex cystic mass. Other lesions appear to be purely cystic. Differential is broad but includes tumor, abscesses including amebic and hydatid abscesses, cholangiocarcinoma. Moderate right pleural effusion with compressive atelectasis. Chest CT 09/10/17 18:23 IMPRESSION: Multiple hepatic cystic masses with at least 1 large complex cystic mass. Other lesions appear to be purely cystic. Differential is broad but includes tumor, abscesses including amebic and hydatid abscesses, cholangiocarcinoma. Moderate right pleural effusion with compressive atelectasis. Carotid Doppler Study 09/14/17 00:00 IMPRESSION: NO HEMODYNAMICALLY SIGNIFICANT STENOSIS. Chest X-Ray 09/14/17 06:00 IMPRESSION: SLIGHT INCREASE IN THE RIGHT PLEURAL EFFUSION. Assessment & Plan - Diagnosis (1) Acute blood loss anemia Is this a current diagnosis for this admission?: Yes (2) Hypokalemia Is this a current diagnosis for this admission?: Yes (3) Liver cyst Is this a current diagnosis for this admission?: Yes (4) Malnutrition Qualifiers: Malnutrition type: protein-calorie malnutrition Is this a current diagnosis for this admission?: Yes (5) Pleural effusion Is this a current diagnosis for this admission?: Yes (7) Syncopal episodes Is this a current diagnosis for this admission?: Yes (9) Atrial fibrillation Qualifiers: Atrial fibrillation type: chronic Qualified Code(s): I48.2 - Chronic atrial fibrillation Is this a current diagnosis for this admission?: Yes (11) Metabolic encephalopathy Is this a current diagnosis for this admission?: Yes - Time Time Spent with patient: 15-24 minutes - Inpatient Certification Medical Necessity: Need for IV Antibiotics - Plan Summary Plan Summary: The patient has anemia of chronic disease. She also has an elevated sed rate. She likely has a chronic infection. While I think this is related to the liver cysts we are going to proceed with thoracentesis today. I have her Coumadin on hold. Her metabolic encephalopathy has resolved. For now, we are going to continue ceftriaxone and vancomycin.
[2017-09-17] MEDS: ATORVASTATIN CALCIUM 40 MG TABLET PO SCH (21:40)
[2017-09-18] MEDS: VANCOMYCIN HCL 1,000 MG in DEXTROSE 5%-WATER 250 ML IV SCH ×2 (05:22→17:22)
[2017-09-18] MEDS: LANSOPRAZOLE 30 MG TAB.RAP.DR PO SCH (05:22)
[2017-09-18 06:03] LABS: ABSOLUTE BASOPHILS # (AUTO) 0.1 10^3/uL (0.0-0.2); ABSOLUTE EOSINOPHILS # (AUTO) 0.2 10^3/uL (0.0-0.6); ABSOLUTE LYMPHOCYTES (AUTO) 2.4 10^3/uL (0.5-4.7); ABSOLUTE MONOCYTES (AUTO) 0.9 10^3/uL (0.1-1.4); ABSOLUTE NEUT (AUTO) 4.8 10^3/uL (1.7-8.2); BASOPHILS % (AUTO) 1.2 % (0-2); EOSINOPHILS % (AUTO) 2.1 % (0-6); HEMOGLOBIN 9.4 g/dL (12.0-15.5); LYMPHOCYTES % (AUTO) 28.8 % (13-45); MEAN CORPUSCULAR HGB CONC 33.6 g/dL (32.0-36.0); MEAN CORPUSCULAR VOLUME 86 fl (80-97); MONOCYTES % (AUTO) 10.9 % (3-13); PLATELET COUNT 389 10^3/uL (150-450); RED BLOOD COUNT 3.25 10^6/uL (3.72-5.28); RED CELL DISTRIBUTION WIDTH 15.5 % (11.5-14.0); TOTAL CELLS COUNTED % (AUTO) 100 %; WHITE BLOOD COUNT 8.3 10^3/uL (4.0-10.5)
[2017-09-18 06:15] LABS: INTERNATIONAL RATION (INR) 1.36; PROTHROMBIN TIME 17.6 SEC (11.4-15.4)
[2017-09-18 06:27] LABS: ANION GAP 7 (5-19); BLOOD UREA NITROGEN 3 mg/dL (7-20); CALCIUM 9.1 mg/dL (8.4-10.2); CARBON DIOXIDE 26 mmol/L (22-30); CHLORIDE 108 mmol/L (98-107); GLUCOSE 137 mg/dL (75-110); POTASSIUM 3.5 mmol/L (3.6-5.0); SODIUM 140.7 mmol/L (137-145)
--- NOTE | 2017-09-18 09:45 | RADIOLOGY REPORT (SQ) ---
EXAM DESCRIPTION: CHEST SINGLE VIEW COMPLETED DATE/TIME: 09/18/2017 9:27 am REASON FOR STUDY: S/P RT THORACENTESIS COMPARISON: 09/14/2017. EXAM PARAMETERS: NUMBER OF VIEWS: One view. TECHNIQUE: Single frontal radiographic view of the chest acquired. RADIATION DOSE: NA LIMITATIONS: None. FINDINGS: LUNGS AND PLEURA: There is again evidence of right pleural effusion. MEDIASTINUM AND HILAR STRUCTURES: No masses. Contour normal. HEART AND VASCULAR STRUCTURES: The heart is normal in size. The pulmonary vasculature is normal. BONES: No acute findings. HARDWARE: Surgical clips left axilla. OTHER: Chest leads in place. Status post left mastectomy. IMPRESSION: Right pleural effusion. TECHNICAL DOCUMENTATION: JOB ID: [id number] [employer]- All Rights Reserved
--- NOTE | 2017-09-18 10:01 | RADIOLOGY REPORT (SQ) ---
EXAM DESCRIPTION: U/S THORACENTESIS WITH IMAGING COMPLETED DATE/TIME: 09/18/2017 9:12 am REASON FOR STUDY: Fever, right sided pleural effusion -coumadin held COMPARISON: None. LIMITATIONS: None. PROCEDURE: Procedure, risks, benefit, and alternative explained to patient who then gave written con sent. The posterior right chest wall was marked using ultrasound guidance. A time-out was called fo r correct marking verification. Chest prepped and draped using sterile technique. Local anesthesia a chieved using 3 ml of 1% lidocaine injection. A 6fr Safe-T- Centesis set was introduced into the rig ht pleural space. Fluid was aspirated. The catheter was removed and the entry site was covered with sterile bandage. No immediate complications noted. Images acquired during the procedure were stored on PACS. FINDINGS: ENTRY SITE: Posterior right chest. FLUID VOLUME: 425 FLUID ANALYSIS: Straw OTHER: Fluid sent to the lab for testing. IMPRESSION: SUCCESSFUL THORACENTESIS USING ULTRASOUND GUIDANCE. COMMENT: Patient medication list reviewed: Yes- Quality ID# [id number]:Eligible professional attests to doc umenting in the medical record they obtained, updated, or reviewed the patient's current medications. Quality ID #[id number]: Final reports for procedures using fluoroscopy that document radiation exposure skyler cristal, or exposure time and number of fluorographic images (if radiation exposure indices are not avail able) TECHNICAL DOCUMENTATION: JOB ID: [id number] [employer]- All Rights Reserved
[2017-09-18] MEDS: FUROSEMIDE 20 MG TABLET PO SCH (10:05)
[2017-09-18] MEDS: CARVEDILOL 12.5 MG TABLET PO SCH ×2 (10:06→22:43)
[2017-09-18] MEDS: DILTIAZEM HCL 240 MG CAPSULE.CR PO SCH (10:06)
[2017-09-18] MEDS: GUAIFENESIN 600 MG TABLET.SA PO SCH ×2 (10:06→22:43)
[2017-09-18] MEDS: FERROUS SULFATE 325 MG TABLET PO SCH ×3 (10:06→16:34)
[2017-09-18] MEDS: DOCUSATE SODIUM 100 MG CAPSULE PO SCH ×2 (10:06→17:23)
[2017-09-18] MEDS: CYCLOSPORINE 0.05% OPH EMULSIO 0.4 ML DROPERETTE OU SCH ×2 (10:07→22:43)
[2017-09-18 10:27] LABS: FLUID APPEARANCE HAZY; FLUID COLOR YELLOW; FLUID TYPE PLEURAL; FLUID VISCOSITY LIQUID
--- NOTE | 2017-09-18 12:16 | RADIOLOGY REPORT (SQ) ---
EXAM DESCRIPTION: CHEST SINGLE VIEW COMPLETED DATE/TIME: 09/18/2017 11:29 am REASON FOR STUDY: 2 HOURS S/P RT THORACENTESIS 11:20 COMPARISON: 09/18/2017 EXAM PARAMETERS: NUMBER OF VIEWS: One view. TECHNIQUE: Single frontal radiographic view of the chest acquired. RADIATION DOSE: NA LIMITATIONS: None. FINDINGS: LUNGS AND PLEURA: Small right pleural effusion. No pneumothorax. MEDIASTINUM AND HILAR STRUCTURES: No masses. Contour normal. HEART AND VASCULAR STRUCTURES: Heart normal in size. Normal vasculature. BONES: No acute findings. HARDWARE: Left mastectomy and axillary node dissection. OTHER: No other significant finding. IMPRESSION: No pneumothorax. TECHNICAL DOCUMENTATION: JOB ID: [id number] [employer]- All Rights Reserved
--- NOTE | 2017-09-18 15:39 | PDOC PROGRESS REPORT ---
Subjective Progress Note for:: 09/18/17 Subjective:: The patient is a 67-year-old female admitted with a fever, syncope and hypotension. Please note that this is a re-recurring problem for this patient. She has presented with similar symptoms on 3 occasions since August 2017. Initially, her chest radiographs in August were unremarkable. She has started to develop a pleural effusion that has been increasing in size. The patient underwent LP on admission secondary to high fever with mental status changes. She was placed on meningitis doses of ceftriaxone and vancomycin. LP remains negative. Cultures remain negative. She has an intermittent cough. At times, her cough is dry and at times it is productive of white phlegm. The patient will come in with a high fever and then have no additional fevers. Since she has responded so well to antibiotics the pleural effusion has not been evaluated. However, due to the necessity for further evaluation I have ordered a thoracentesis. This was done today. We did have to hold the patient' s Coumadin to safely tap the effusion. I will restart the Coumadin tonight and place the patient on full dose Lovenox while Coumadin becomes therapeutic. Studies from the pleural effusion are still pending. Cell count indicates a lymphocytic predominance. Patient is virtually asymptomatic at this time. Today is day 9 out of 10 for vancomycin and ceftriaxone. Reason For Visit: SIRS, METOBOLIC ENCEPHALOPATHY, FEBRILE ILLNESS Physical Exam Vital Signs: Temp Pulse Resp BP Pulse Ox 98.4 F 113 H 16 113/61 95 09/18/17 11:22 09/18/17 11:22 09/18/17 11:22 09/18/17 11:22 09/18/17 11:22 Intake & Output 09/17/17 09/18/17 09/19/17 06:59 06:59 06:59 Intake Total 960 1705 100 Balance 960 1705 100 Weight 71.6 kg 71.1 kg Additional comments: The patient appears to be extremely healthy for age. Her cognition and mentation are appropriate. Her strength is good. Neurologically, she has no focal deficits. Her facial appearance is unremarkable. Her lungs are clear to auscultation bilaterally today. Her cardiac exam demonstrates an irregularly irregular rhythm without murmurs, gallops or rubs. The abdomen is soft and flat. Bowel sounds are present in the lower quadrants. She does not have guarding or rebound noted and there are no hernias or masses present. The lower extremities are unremarkable. She does not have any pitting edema present. The skin is warm, dry and intact without lesions or rashes. Results Laboratory Results: 09/18/17 05:48 09/18/17 05:48 09/18/17 09/18/17 09/18/17 05:48 05:48 08:55 WBC 8.3 RBC 3.25 L Hgb 9.4 L Hct 28.0 L MCV 86 MCH 29.0 MCHC 33.6 RDW 15.5 H Plt Count 389 Seg Neutrophils % 57.0 Lymphocytes % 28.8 Monocytes % 10.9 Eosinophils % 2.1 Basophils % 1.2 Absolute Neutrophils 4.8 Absolute Lymphocytes 2.4 Absolute Monocytes 0.9 Absolute Eosinophils 0.2 Absolute Basophils 0.1 Sodium 140.7 Potassium 3.5 L Chloride 108 H Carbon Dioxide 26 Anion Gap 7 BUN 3 L Creatinine 0.57 Est GFR ( Amer) > 60 Est GFR (Non-Af Amer) > 60 Glucose 137 H Calcium 9.1 Fluid Type PLEURAL Fluid Source Fluid Color YELLOW Fluid Appearance HAZY Fluid Viscosity LIQUID Fluid WBC 3020 Fluid RBC 1060 09/11/17 09/11/17 09/14/17 07:14 07:14 07:55 Creatine Kinase 21 L CK-MB (CK-2) 0.26 NT-Pro-B Natriuret Pep 2150 H Impressions: Abdomen/Pelvis CT 09/10/17 18:23 IMPRESSION: Multiple hepatic cystic masses with at least 1 large complex cystic mass. Other lesions appear to be purely cystic. Differential is broad but includes tumor, abscesses including amebic and hydatid abscesses, cholangiocarcinoma. Moderate right pleural effusion with compressive atelectasis. Chest CT 09/10/17 18:23 IMPRESSION: Multiple hepatic cystic masses with at least 1 large complex cystic mass. Other lesions appear to be purely cystic. Differential is broad but includes tumor, abscesses including amebic and hydatid abscesses, cholangiocarcinoma. Moderate right pleural effusion with compressive atelectasis. Carotid Doppler Study 09/14/17 00:00 IMPRESSION: NO HEMODYNAMICALLY SIGNIFICANT STENOSIS. Chest X-Ray 09/18/17 00:00 IMPRESSION: No pneumothorax. Thoracentesis Ultrasound 09/18/17 00:00 IMPRESSION: SUCCESSFUL THORACENTESIS USING ULTRASOUND GUIDANCE. Assessment & Plan - Diagnosis (1) Acute blood loss anemia Is this a current diagnosis for this admission?: Yes Plan: Fairly stable. Lab indices indicate anemia of chronic disease. There is also likely a component of iron deficiency. The patient remains on oral iron. (2) Hypokalemia Is this a current diagnosis for this admission?: Yes Plan: The patient normally takes 20 mEq of potassium per day. She has required intermittent supplementation. If her potassium remains low consider increasing her standing dose of supplemental potassium. (3) Liver cyst Is this a current diagnosis for this admission?: Yes Plan: The patient is a [place]. She has these very large liver cysts and she has previously been evaluated by a communications editor at [facility]. Her communications editor is Mustapha. Has previously had an infection of the liver requiring surgical intervention, but, her communications editor has not recommended any intervention regarding the cysts. I think that the patient's presentation may be due to intermittent bacteremia from the cysts which may contain parasites. I also think that the pleural effusion may be involved with the cysts. She may have a sympathetic effusion from compression or she may be seeding the pleural space. At this time the patient appears to be clinically stable and I have recommended that she follow-up at [place] after discharge. I have put in a call to Dr. Luciano so that I can update him on the situation. The office number for Dr. Springer is area code [phone] (4) Malnutrition Qualifiers: Malnutrition type: protein-calorie malnutrition Is this a current diagnosis for this admission?: Yes Plan: The patient does not appear to have significant malnutrition at present. (5) Pleural effusion Is this a current diagnosis for this admission?: Yes Plan: The patient underwent a thoracentesis today. Pending. Cell count demonstrates a predominantly lymphocytic effusion. Cultures have been sent for AFB, fungal and bacterial infection. Cytology is also pending. (6) Sepsis Is this a current diagnosis for this admission?: Yes Plan: Clinically resolved. Today is day 9 out of 10 for ceftriaxone and vancomycin. (7) Syncopal episodes Is this a current diagnosis for this admission?: Yes Plan: The patient has underlying atrial fibrillation. When she presented with a very high fever she had syncope. This was likely secondary to dehydration from the fever leading to hypotension in the setting of chronic atrial fibrillation. The patient's senior electrical controls engineer, Dr. Barnhart is aware. He has been following her case but has not been available for inpatient consultation. For any questions, Dr. Barnhart is available by phone. (8) Weakness Is this a current diagnosis for this admission?: Yes Plan: Resolved, likely associated with the above. (9) Atrial fibrillation Qualifiers: Atrial fibrillation type: chronic Qualified Code(s): I48.2 - Chronic atrial fibrillation Is this a current diagnosis for this admission?: Yes Plan: The patient has chronic atrial fibrillation. She remains on carvedilol and diltiazem for rate control. The patient's Coumadin was held for thoracentesis. I have started Coumadin this evening. She will also be bridged with Lovenox. Daily INRs are ordered. 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 - Time Time Spent with patient: 25-34 minutes - Inpatient Certification Medical Necessity: Need for IV Antibiotics, Need for Surgery, Risk of Complication if Not Cared For in Hospital, Risk of Diagnosis Which Will Require Inpatient Eval/Care/Monitoring - Plan Summary Plan Summary: Patient will complete antibiotic therapy tomorrow. Hopefully, some additional studies will be back on the pleural effusion. The patient will likely be able to be discharged in the next day or so. Her Coumadin was restarted. She is on a Lovenox bridge. She will need timely follow-up with the hepatology clinic at [facility]. I have contacted their office to streamline her follow-up appointment.
[2017-09-18] MEDS ORDERED: POTASSIUM CHLORIDE 10 MEQ TABLET.SA PO ONE (16:00)
[2017-09-18] MEDS: CEFTRIAXONE 2 GM/D5W RTU 2 GM/50 ML RTUPB IV SCH (16:34)
[2017-09-18] MEDS: ENOXAPARIN SODIUM INJ 80 MG/0.8 ML DISP.SYRIN SUBCUT SCH (22:42)
[2017-09-18] MEDS: WARFARIN SODIUM 2 MG TABLET PO SCH (22:43)
[2017-09-18] MEDS: ATORVASTATIN CALCIUM 40 MG TABLET PO SCH (22:43)
[2017-09-19] MEDS: LANSOPRAZOLE 30 MG TAB.RAP.DR PO SCH (05:36)
[2017-09-19] MEDS: VANCOMYCIN HCL 1,000 MG in DEXTROSE 5%-WATER 250 ML IV SCH ×2 (05:36→17:45)
[2017-09-19 06:24] LABS: INTERNATIONAL RATION (INR) 1.26; PROTHROMBIN TIME 16.6 SEC (11.4-15.4)
[2017-09-19 06:31] LABS: ABSOLUTE EOSINOPHILS # (AUTO) 0.1 10^3/uL (0.0-0.6); ABSOLUTE LYMPHOCYTES (AUTO) 2.6 10^3/uL (0.5-4.7); ABSOLUTE MONOCYTES (AUTO) 0.9 10^3/uL (0.1-1.4); ABSOLUTE NEUT (AUTO) 4.9 10^3/uL (1.7-8.2); BASOPHILS % (AUTO) 0.6 % (0-2); EOSINOPHILS % (AUTO) 1.1 % (0-6); HEMATOCRIT 27.8 % (36.0-47.0); HEMOGLOBIN 9.4 g/dL (12.0-15.5); LYMPHOCYTES % (AUTO) 30.5 % (13-45); MEAN CORPUSCULAR HEMOGLOBIN 29.4 pg (27.0-33.4); MEAN CORPUSCULAR HGB CONC 33.8 g/dL (32.0-36.0); MEAN CORPUSCULAR VOLUME 87 fl (80-97); PLATELET COUNT 395 10^3/uL (150-450); RED CELL DISTRIBUTION WIDTH 15.2 % (11.5-14.0); SEGMENTED NEUTROPHILS % (AUTO) 57.8 % (42-78); TOTAL CELLS COUNTED % (AUTO) 100 %; WHITE BLOOD COUNT 8.5 10^3/uL (4.0-10.5)
[2017-09-19 06:44] LABS: ANION GAP 5 (5-19); BLOOD UREA NITROGEN 5 mg/dL (7-20); CALCIUM 9.4 mg/dL (8.4-10.2); CARBON DIOXIDE 27 mmol/L (22-30); CHLORIDE 108 mmol/L (98-107); GLUCOSE 96 mg/dL (75-110); POTASSIUM 3.9 mmol/L (3.6-5.0); SODIUM 140.2 mmol/L (137-145)
[2017-09-19] MEDS: FERROUS SULFATE 325 MG TABLET PO SCH ×3 (08:13→16:02)
[2017-09-19] MEDS: FUROSEMIDE 20 MG TABLET PO SCH (09:57)
[2017-09-19] MEDS: DILTIAZEM HCL 240 MG CAPSULE.CR PO SCH (09:57)
[2017-09-19] MEDS: DOCUSATE SODIUM 100 MG CAPSULE PO SCH ×2 (09:57→17:44)
[2017-09-19] MEDS: ENOXAPARIN SODIUM INJ 80 MG/0.8 ML DISP.SYRIN SUBCUT SCH ×2 (09:57→21:47)
[2017-09-19] MEDS: CARVEDILOL 12.5 MG TABLET PO SCH ×2 (09:58→21:44)
[2017-09-19] MEDS: GUAIFENESIN 600 MG TABLET.SA PO SCH ×2 (09:58→21:44)
[2017-09-19] MEDS: CYCLOSPORINE 0.05% OPH EMULSIO 0.4 ML DROPERETTE OU SCH ×2 (10:01→21:51)
[2017-09-19 11:53] LABS: APPEARANCE,URINE CLEAR; BILIRUBIN,URINE NEGATIVE (NEGATIVE); COLOR,URINE STRAW; GLUCOSE, URINE NEGATIVE (NEGATIVE); KETONES,URINE NEGATIVE (NEGATIVE); LEUKOCYTE ESTERASE,URINE NEGATIVE (NEGATIVE); NITRITE,URINE NEGATIVE (NEGATIVE); PROTEIN,URINE NEGATIVE (NEGATIVE); URINE SPECIFIC GRAVITY 1.002; UROBILINOGEN,URINE NEGATIVE mg/dL (<2.0)
[2017-09-19] MEDS: CEFTRIAXONE 2 GM/D5W RTU 2 GM/50 ML RTUPB IV SCH (15:31)
--- NOTE | 2017-09-19 18:26 | PDOC PROGRESS REPORT ---
Subjective Progress Note for:: 09/19/17 Subjective:: Pt feels better, she is starting to walk a bit, breathing, breathing is significantly better with the exception of slight tightness at her lung bases with inspiration. No fever or chills, no new cough or sputum. NO CP, no nausea , vomiting, constipation, diarrhea, dysuria. Full review of systems was performed and is negative with the exception of those things which have noted. I have reviewed her labs and pertinent diagnostic studies today. Reason For Visit: SIRS, METOBOLIC ENCEPHALOPATHY, FEBRILE ILLNESS Physical Exam Vital Signs: Temp Pulse Resp BP Pulse Ox 97.9 F 85 18 103/67 100 09/19/17 15:33 09/19/17 15:33 09/19/17 15:33 09/19/17 15:33 09/19/17 15:33 Intake & Output 09/18/17 09/19/17 09/20/17 06:59 06:59 06:59 Intake Total 1705 1260 237 Balance 1705 1260 237 Weight 71.1 kg 68.7 kg General appearance: PRESENT: no acute distress Head exam: PRESENT: atraumatic, normocephalic Eye exam: PRESENT: conjunctiva pink, EOMI Ear exam: PRESENT: normal external ear exam Mouth exam: PRESENT: neck supple Respiratory exam: PRESENT: decreased breath sounds, rales. ABSENT: wheezes Cardiovascular exam: PRESENT: RRR. ABSENT: systolic murmur Pulses: PRESENT: normal radial pulses Vascular exam: PRESENT: normal capillary refill GI/Abdominal exam: PRESENT: normal bowel sounds, soft. ABSENT: distended, guarding, tenderness Rectal exam: PRESENT: deferred Extremities exam: ABSENT: pedal edema Musculoskeletal exam: PRESENT: normal inspection Neurological exam: PRESENT: alert, awake, oriented to person, oriented to place , oriented to situation Psychiatric exam: PRESENT: appropriate affect. ABSENT: anxious Skin exam: PRESENT: dry, intact, warm Results Laboratory Results: 09/19/17 05:34 09/19/17 05:34 09/19/17 09/19/17 09/19/17 05:34 05:34 11:20 WBC 8.5 RBC 3.20 L Hgb 9.4 L Hct 27.8 L MCV 87 MCH 29.4 MCHC 33.8 RDW 15.2 H Plt Count 395 Seg Neutrophils % 57.8 Lymphocytes % 30.5 Monocytes % 10.0 Eosinophils % 1.1 Basophils % 0.6 Absolute Neutrophils 4.9 Absolute Lymphocytes 2.6 Absolute Monocytes 0.9 Absolute Eosinophils 0.1 Absolute Basophils 0.0 Sodium 140.2 Potassium 3.9 Chloride 108 H Carbon Dioxide 27 Anion Gap 5 BUN 5 L Creatinine 0.57 Est GFR ( Amer) > 60 Est GFR (Non-Af Amer) > 60 Glucose 96 Calcium 9.4 Urine Color STRAW Urine Appearance CLEAR Urine pH 7.0 Ur Specific [place] 1.002 Urine Protein NEGATIVE Urine Glucose (UA) NEGATIVE Urine Ketones NEGATIVE Urine Blood NEGATIVE Urine Nitrite NEGATIVE Ur Leukocyte Esterase NEGATIVE Urine WBC (Auto) 0 Urine RBC (Auto) 0 09/11/17 09/11/17 09/14/17 07:14 07:14 07:55 Creatine Kinase 21 L CK-MB (CK-2) 0.26 NT-Pro-B Natriuret Pep 2150 H Impressions: Abdomen/Pelvis CT 09/10/17 18:23 IMPRESSION: Multiple hepatic cystic masses with at least 1 large complex cystic mass. Other lesions appear to be purely cystic. Differential is broad but includes tumor, abscesses including amebic and hydatid abscesses, cholangiocarcinoma. Moderate right pleural effusion with compressive atelectasis. Chest CT 09/10/17 18:23 IMPRESSION: Multiple hepatic cystic masses with at least 1 large complex cystic mass. Other lesions appear to be purely cystic. Differential is broad but includes tumor, abscesses including amebic and hydatid abscesses, cholangiocarcinoma. Moderate right pleural effusion with compressive atelectasis. Carotid Doppler Study 09/14/17 00:00 IMPRESSION: NO HEMODYNAMICALLY SIGNIFICANT STENOSIS. Chest X-Ray 09/18/17 00:00 IMPRESSION: No pneumothorax. Thoracentesis Ultrasound 09/18/17 00:00 IMPRESSION: SUCCESSFUL THORACENTESIS USING ULTRASOUND GUIDANCE. Assessment & Plan - Diagnosis (1) Acute blood loss anemia Is this a current diagnosis for this admission?: Yes Plan: anemia of chronic disease and Fe deficiency, cont Fe supplements (2) Hypokalemia Is this a current diagnosis for this admission?: Yes Plan: K is 3.9 today, stable, will check again tomorrow (3) Liver cyst Is this a current diagnosis for this admission?: Yes Plan: The patient is a [place]. She has these very large liver cysts and she has previously been evaluated by a tower attendant at [facility]. Her tower attendant is Mustapha. Has previously had an infection of the liver requiring surgical intervention, but, her tower attendant has not recommended any intervention regarding the cysts. I think that the patient's presentation may be due to intermittent bacteremia from the cysts which may contain parasites. I also think that the pleural effusion may be involved with the cysts. She may have a sympathetic effusion from compression or she may be seeding the pleural space. At this time the patient appears to be clinically stable and I have recommended that she follow-up at [facility] after discharge. I have put in a call to Dr. Luciano so that I can update him on the situation. The office number for Dr. Springer is area code [phone] has appt for this next Thursday (4) Pleural effusion Is this a current diagnosis for this admission?: Yes Plan: has been tapped, fluid results are all pending (5) Sepsis Is this a current diagnosis for this admission?: Yes Plan: resolved.ABX discontinued. all cultures neg and final with the exception of pleural fluid labs. (6) Syncopal episodes Is this a current diagnosis for this admission?: Yes Plan: The patient has underlying atrial fibrillation. When she presented with a very high fever she had syncope. This was likely secondary to dehydration from the fever leading to hypotension in the setting of chronic atrial fibrillation. The patient's library media specialist, Dr. Barnhart is aware. He has been following her case but has not been available for inpatient consultation. For any questions, Dr. Barnhart is available by phone. (7) Weakness Is this a current diagnosis for this admission?: Yes Plan: much improved with time, cont to ambulate with assistance (8) Atrial fibrillation Qualifiers: Atrial fibrillation type: chronic Qualified Code(s): I48.2 - Chronic atrial fibrillation Is this a current diagnosis for this admission?: Yes Plan: The patient has chronic atrial fibrillation. She remains on carvedilol and diltiazem for rate control. The patient's Coumadin was held for thoracentesis and is now restarted. She will also be bridged with Lovenox. Daily INRs are ordered. (9) Metabolic encephalopathy Is this a current diagnosis for this admission?: Yes Plan: resolved, mental status back to normal - Time Time Spent with patient: 35 or more minutes Medications reviewed and adjusted accordingly: Yes Within: within 24 hours - Inpatient Certification Based on my medical assessment, after consideration of the patient's comorbidities, presenting symptoms, or acuity I expect that the services needed warrant INPATIENT care.: Yes I certify that my determination is in accordance with my understanding of Medicare's requirements for reasonable and necessary INPATIENT services [42 CFR 412.3e].: Yes Medical Necessity: Significant Comorbidiites Make Outpatient Treatment Too Risky , Need Close Monitoring Due to Risk of Patient Decompensation, Risk of Complication if Not Cared For in Hospital
[2017-09-19] MEDS: WARFARIN SODIUM 2 MG TABLET PO SCH (21:44)
[2017-09-19] MEDS: ATORVASTATIN CALCIUM 40 MG TABLET PO SCH (21:46)
[2017-09-20] MEDS: LANSOPRAZOLE 30 MG TAB.RAP.DR PO SCH (06:01)
[2017-09-20] MEDS: VANCOMYCIN HCL 1,000 MG in DEXTROSE 5%-WATER 250 ML IV SCH (06:01)
[2017-09-20 06:16] LABS: ABSOLUTE BASOPHILS # (AUTO) 0.1 10^3/uL (0.0-0.2); ABSOLUTE EOSINOPHILS # (AUTO) 0.1 10^3/uL (0.0-0.6); ABSOLUTE LYMPHOCYTES (AUTO) 2.6 10^3/uL (0.5-4.7); ABSOLUTE NEUT (AUTO) 5.5 10^3/uL (1.7-8.2); BASOPHILS % (AUTO) 0.9 % (0-2); EOSINOPHILS % (AUTO) 1.2 % (0-6); HEMATOCRIT 28.9 % (36.0-47.0); HEMOGLOBIN 9.7 g/dL (12.0-15.5); MEAN CORPUSCULAR HEMOGLOBIN 29.1 pg (27.0-33.4); MEAN CORPUSCULAR HGB CONC 33.6 g/dL (32.0-36.0); MEAN CORPUSCULAR VOLUME 87 fl (80-97); PLATELET COUNT 386 10^3/uL (150-450); RED BLOOD COUNT 3.33 10^6/uL (3.72-5.28); SEGMENTED NEUTROPHILS % (AUTO) 58.9 % (42-78); TOTAL CELLS COUNTED % (AUTO) 100 %; WHITE BLOOD COUNT 9.4 10^3/uL (4.0-10.5)
[2017-09-20 06:22] LABS: INTERNATIONAL RATION (INR) 1.24; PROTHROMBIN TIME 16.4 SEC (11.4-15.4)
[2017-09-20 07:02] LABS: ANION GAP 9 (5-19); BLOOD UREA NITROGEN 4 mg/dL (7-20); CALCIUM 9.6 mg/dL (8.4-10.2); CARBON DIOXIDE 27 mmol/L (22-30); CHLORIDE 106 mmol/L (98-107); GLUCOSE 102 mg/dL (75-110); POTASSIUM 4.1 mmol/L (3.6-5.0); SODIUM 141.5 mmol/L (137-145)
[2017-09-20] MEDS: FERROUS SULFATE 325 MG TABLET PO SCH ×2 (07:46→12:05)
[2017-09-20] MEDS: FUROSEMIDE 20 MG TABLET PO SCH (09:37)
[2017-09-20] MEDS: GUAIFENESIN 600 MG TABLET.SA PO SCH (09:37)
[2017-09-20] MEDS: DOCUSATE SODIUM 100 MG CAPSULE PO SCH (09:37)
[2017-09-20] MEDS: CARVEDILOL 12.5 MG TABLET PO SCH (09:37)
[2017-09-20] MEDS: ENOXAPARIN SODIUM INJ 80 MG/0.8 ML DISP.SYRIN SUBCUT SCH (09:38)
[2017-09-20] MEDS: DILTIAZEM HCL 240 MG CAPSULE.CR PO SCH (10:41)
[2017-09-20] MEDS: CYCLOSPORINE 0.05% OPH EMULSIO 0.4 ML DROPERETTE OU SCH (10:42)
[2017-09-20 14:14] VITALS: BP 128/71
--- NOTE | 2017-09-20 20:44 | PDOC DISCHARGE SUMMARY ---
General - Admit/Disc Date/PCP Admission Date/Primary Care Provider: 09/10/17 19:05 CRISS WATTERS MD Discharge Date: 09/20/17 - Discharge Diagnosis (1) Acute blood loss anemia Is this a current diagnosis for this admission?: Yes Summary: On admission patient was found to have what looked like an acute blood loss anemia with hemoglobin of 9.7 and it had been 11.4 several months prior. Is anticoagulated with warfarin and her INR was 2.99 on admission. Warfarin was held. For discharge patient has been restarted on her warfarin with a Lovenox bridge. Hemoglobin has been stable at around 9.5 (2) Liver cyst Is this a current diagnosis for this admission?: Yes Summary: Patient has chronic cystic liver disease. She is followed at [facility]. She has follow-up this Thursday which is 3 days after discharge. (3) Pleural effusion Is this a current diagnosis for this admission?: Yes Summary: Patient was found to have pleural effusion that underwent thoracentesis. Currently the pleural fluid studies are pending. She knows that the studies are pending and that her primary care doctor needs to follow the results. (4) Sepsis Is this a current diagnosis for this admission?: Yes Summary: Patient was admitted with sepsis though etiology of infection not known. It is thought to possibly be related to her liver cysts. She was treated with Vancomycin and ceftriaxone for a total of 10 days. Blood cultures were negative. Urine culture was negative. CSF culture was also negative. CSF viral culture is preliminarily negative. Pleural fluid results are all pending. (5) Syncopal episodes Is this a current diagnosis for this admission?: Yes Summary: She had echocardiogram, see diastolic heart failure below. She also had carotid duplex which showed no hemodynamically significant carotid disease. Syncope was thought to be related to her presenting condition. (6) Weakness Is this a current diagnosis for this admission?: Yes Summary: Secondary to presenting condition. Patient is almost completely back to normal in terms of her strength. She is able to ambulate independently without difficulty. (7) Atrial fibrillation Is this a current diagnosis for this admission?: Yes Summary: She is rate controlled for discharge. Her warfarin has been restarted at her prehospitalization dosing and she is on Lovenox 70 mg subcu every 12 hours until INR is therapeutic, she is asked to call her primary care doctor tomorrow for INR check and Lovenox monitoring. (8) Metabolic encephalopathy Is this a current diagnosis for this admission?: Yes Summary: Thought to be due to presenting condition, completely resolved for discharge. (9) Diastolic heart failure Is this a current diagnosis for this admission?: Yes Summary: Secondary to syncope patient had an echocardiogram performed. Significant findings were grade 2 diastolic dysfunction and mild AR. For discharge her heart failure is well compensated. - Additional Information Resuscitation Status: Full Code Discharge Activity: Balance Activity w/Rest Prescriptions: Enoxaparin Sodium [Lovenox Inj 80 mg/0.8 ml Disp.syrin] 70 mg SUBCUT Q12 5 Days #10 disp.syrin Home Medications: Calcium Carbonate/Vitamin D3 [Calcium 500-Vit D3 200 Caplet] 1 tab PO DAILY 03/20 Carboxymethylcellulose Sodium [Refresh Plus 0.5% Oph Soln 0.4 ml Drope[place]] 4 drop OU Q6HP PRN 09/10/17 Carvedilol [Coreg 12.5 mg Tablet] 12.5 mg PO Q12 09/10/17 Cyclosporine 0.05% Oph Emulsio [Restasis 0.05% Oph Emulsion Pf 0.4 ml] 1 drop OU Q12 09/10/17 Diltiazem HCl [Diltiazem 24Hr Cd] 240 mg PO DAILY 09/10/17 Furosemide [Lasix 20 mg Tablet] 20 mg PO DAILY 09/10/17 Pantoprazole Sodium [Protonix] 40 mg PO DAILY 09/10/17 Rosuvastatin Calcium [Crestor 20 mg Tablet] 20 mg PO QHS 09/10/17 Warfarin Sodium [Coumadin 2 mg Tablet] 2 mg PO QPM 09/10/17 Enoxaparin Sodium [Lovenox Inj 80 mg/0.8 ml Disp.syrin] 70 mg SUBCUT Q12 5 Days #10 disp.syrin 09/20/17 Warfarin Sodium [Coumadin 2 mg Tablet] 2 mg PO QHS tablet 09/20/17 History of Present Illness History of Present Illness: LUIS CANALES is a 67 year old female with history of atrial fibrillation on anticoagulation with Coumadin, coronary artery disease, hyperlipidemia, hypertension presenting with a ongoing history of not feeling well since last month. Patient states she has been to the hospital ED multiple times regarding just not feeling well. Patient has been having chills and shaking and just passing out. Patient blood pressures have been extremely low despite her blood pressure medications being decreased. Patient does report feeling lightheaded sometimes with getting up. Patient follows with Dr. Barnhart who has referred her to the ED several times. Patient has been sweaty and passed out 2-3 times this week. When patient comes to she does not remember passing out. Patient does not check her temperatures at home. She does break out in sweats though. She also reports decreased p.o. intake due to lack of appetite. However when she was picked up by the EMS she was noted to be febrile at 105.4 In the ED patient underwent a LP which was clear. Patient chest abdomen and pelvis were scanned. Patient has a moderate sized right-sided pleural effusion. Patient has a cystic liver however this is known and patient is followed at [facility] in this regard. Hospitalist was called to admit patient for febrile illness, hypotension and syncope. Hospital Course Hospital Course: This is a 67-year-old woman with a history of A. fib anticoagulated with warfarin and who has known liver cystic disease and is followed by a specialist in [place]. She was admitted to the hospitalist service with shaking chills , hypotension, lightheadedness and syncope, fever of 105.4. Patient was found to meet criteria for sirs-infection source not clear. Patient had LP which is gated with the exception of viral study still pending. Blood cultures were negative. Urine cultures were negative. Secondary to fever of unknown origin she was started on ceftriaxone and vancomycin and completed 10 days of those antibiotics. She had a pleural effusion which, while could be secondary to diastolic heart failure, was tapped and those fluid studies are still pending. She is aware that her primary care doctor needs to follow-up with that. Dr. Sharma learned that the patient has a apartment groundskeeper Dr. Luciano at [facility]. She has had previous infected cysts. It is possible that this patient's fever of unknown origin was related to intermittent bacteremia from the cysts. With therapies provided patient has resolved back to baseline and will follow closely with her apartment groundskeeper. She knows to return to medical care with concerning symptoms. Physical Exam Vital Signs: Temp Pulse Resp BP Pulse Ox 98.5 F 99 18 128/71 H 97 09/20/17 14:11 09/20/17 14:11 09/20/17 14:11 09/20/17 14:11 09/20/17 14:11 Intake & Output 09/19/17 09/20/17 09/21/17 06:59 06:59 06:59 Intake Total 1260 1772 118 Balance 1260 1772 118 Weight 68.7 kg 69.6 kg General appearance: PRESENT: no acute distress, cooperative Eye exam: PRESENT: conjunctiva pink, EOMI Mouth exam: PRESENT: moist Neck exam: ABSENT: lymphadenopathy Respiratory exam: PRESENT: other - Trace bibasilar rales otherwise clear to auscultation Cardiovascular exam: PRESENT: irregular rhythm. ABSENT: systolic murmur, tachycardia Pulses: PRESENT: normal radial pulses GI/Abdominal exam: PRESENT: normal bowel sounds, soft. ABSENT: distended, tenderness Rectal exam: PRESENT: deferred Neurological exam: PRESENT: alert, awake, oriented to person, oriented to place , oriented to situation Psychiatric exam: PRESENT: appropriate affect. ABSENT: anxious Skin exam: PRESENT: dry, warm Results Laboratory Results: 09/20/17 05:24 09/20/17 05:24 09/18/17 09/18/17 09/18/17 08:55 08:55 08:55 WBC RBC Hgb Hct MCV MCH MCHC RDW Plt Count Seg Neutrophils % Lymphocytes % Monocytes % Eosinophils % Basophils % Absolute Neutrophils Absolute Lymphocytes Absolute Monocytes Absolute Eosinophils Absolute Basophils Sodium Potassium Chloride Carbon Dioxide Anion Gap BUN Creatinine Est GFR ( Amer) Est GFR (Non-Af Amer) Glucose Calcium Fluid Glucose 123 Fluid Total Protein Fluid LDH 152 Fluid Amylase 23 09/18/17 09/20/17 09/20/17 08:55 05:24 05:24 WBC 9.4 RBC 3.33 L Hgb 9.7 L Hct 28.9 L MCV 87 MCH 29.1 MCHC 33.6 RDW 16.0 H Plt Count 386 Seg Neutrophils % 58.9 Lymphocytes % 28.0 Monocytes % 11.0 Eosinophils % 1.2 Basophils % 0.9 Absolute Neutrophils 5.5 Absolute Lymphocytes 2.6 Absolute Monocytes 1.0 Absolute Eosinophils 0.1 Absolute Basophils 0.1 Sodium 141.5 Potassium 4.1 Chloride 106 Carbon Dioxide 27 Anion Gap 9 BUN 4 L Creatinine 0.59 Est GFR ( Amer) > 60 Est GFR (Non-Af Amer) > 60 Glucose 102 Calcium 9.6 Fluid Glucose Fluid Total Protein 3.2 Fluid LDH Fluid Amylase 09/18/17 08:55 Pleural Fluid AFB Smear Concentration - Final 09/18/17 08:55 Pleural Fluid Acid Fast Bacilli Smear - Final 09/11/17 09/11/17 09/14/17 07:14 07:14 07:55 Creatine Kinase 21 L CK-MB (CK-2) 0.26 NT-Pro-B Natriuret Pep 2150 H Impressions: Abdomen/Pelvis CT 09/10/17 18:23 IMPRESSION: Multiple hepatic cystic masses with at least 1 large complex cystic mass. Other lesions appear to be purely cystic. Differential is broad but includes tumor, abscesses including amebic and hydatid abscesses, cholangiocarcinoma. Moderate right pleural effusion with compressive atelectasis. Chest CT 09/10/17 18:23 IMPRESSION: Multiple hepatic cystic masses with at least 1 large complex cystic mass. Other lesions appear to be purely cystic. Differential is broad but includes tumor, abscesses including amebic and hydatid abscesses, cholangiocarcinoma. Moderate right pleural effusion with compressive atelectasis. Carotid Doppler Study 09/14/17 00:00 IMPRESSION: NO HEMODYNAMICALLY SIGNIFICANT STENOSIS. Chest X-Ray 09/18/17 00:00 IMPRESSION: No pneumothorax. Thoracentesis Ultrasound 09/18/17 00:00 IMPRESSION: SUCCESSFUL THORACENTESIS USING ULTRASOUND GUIDANCE. Qualifiers PATEINT BEING DISCHARGED WITH ANY OF THE FOLLOWING DIAGNOSIS?: Heart Failure Reason(s) for not prescribing ACEI:: Not indicated - Patient does not have LVEF of less than 40 HF Pt with Afib discharged with Warfarin?: Yes HF Pt discharged on evidence-based Beta Carmela:: Yes Plan Discharge Plan: Patient is being discharged home with the assistance of her knees. She knows to return to medical care with concerning symptoms. She has follow-up planned with her apartment groundskeeper in several days. She is also aware that she needs to speak with her primary care doctor about getting her final culture and pleural fluid results and also about having an INR checked within the next day. Time Spent: Greater than 30 Minutes
== END 2017-09-20 14:53 | disposition home or self-care (01) | DRG 871 ==
LOC: ER 13:12 → UNDOADMIN 19:05 → EH 19:05 → 3S 09-11 19:12
PROVIDERS: ADMIT Emergency Medicine; ATTEND Emergency Medicine
PROC: 009U3ZX Drainage of Spinal Canal, Percutaneous Approach, Diagnostic (ICD-10-PCS; principal; 2017-09-10)
PROC: 0W993ZX Drainage of Right Pleural Cavity, Percutaneous Approach, Diagnostic (ICD-10-PCS; 2017-09-18)
DX: A41.9 Sepsis, unspecified organism (principal); G93.41 Metabolic encephalopathy; J91.8 Pleural effusion in other conditions classified elsewhere; I50.30 Unspecified diastolic (congestive) heart failure; E46 Unspecified protein-calorie malnutrition; K76.89 Other specified diseases of liver; D50.0 Iron deficiency anemia secondary to blood loss (chronic); I25.10 Atherosclerotic heart disease of native coronary artery without angina pectoris; I10 Essential (primary) hypertension; E78.00 Pure hypercholesterolemia, unspecified; I48.91 Unspecified atrial fibrillation; E11.9 Type 2 diabetes mellitus without complications; K21.9 Gastro-esophageal reflux disease without esophagitis; M19.90 Unspecified osteoarthritis, unspecified site; Z79.01 Long term (current) use of anticoagulants; R55 Syncope and collapse; E78.5 Hyperlipidemia, unspecified; E87.6 Hypokalemia; Z83.3 Family history of diabetes mellitus; Z85.3 Personal history of malignant neoplasm of breast; Z68.27 Body mass index [BMI] 27.0-27.9, adult; Z82.49 Family history of ischemic heart disease and other diseases of the circulatory system; Z79.899 Other long term (current) drug therapy
CPT/HCPCS: 32555; 36415; 71045; 71046; 71260; 74177; 80048; 80053; 80202; 80307; 81001; 82105; 82150; 82306; 82533; 82550; 82553; 82607; 82652; 82728; 82746; 82803; 82945; 82962; 83520; 83540; 83550; 83605; 83615; 83735; 83880; 84157; 84425; 84466; 85025; 85027; 85045; 85610; 85652; 85730; 86140; 86225; 86235; 86430; 87015; 87040; 87070; 87075; 87086; 87101; 87116; 87205; 87206; 87210; 87252; 87804; 88305; 89050; 93005; 93010; 93306; 93880; 96365; 96367; 99291; J0696; J1650; J2543; J3370; J3480; J3490; J7030; J7060; S0164

== ENCOUNTER → 2017-09-22 | Outpatient (CLI) | payer MEDICARE, OTHER | LOC: OD 09:49 | PROVIDERS: ATTEND Internal Medicine Cardiovascular Disease | DX: D64.9 Anemia, unspecified (principal); Z53.9 Procedure and treatment not carried out, unspecified reason ==

== ENCOUNTER → 2017-09-28 | Outpatient (CLI) | payer MEDICARE, OTHER ==
[2017-09-28 15:02] LABS: INTERNATIONAL RATION (INR) 2.72
[2017-09-28 15:03] LABS: PROTHROMBIN TIME 30.2 SEC (11.4-15.4)
--- NOTE | 2017-09-28 17:01 | RADIOLOGY REPORT (SQ) ---
EXAM DESCRIPTION: CHEST PA/LATERAL COMPLETED DATE/TIME: 09/28/2017 2:17 pm REASON FOR STUDY: SHORTNESS OF BREATH COMPARISON: 09/18/2017. EXAM PARAMETERS: NUMBER OF VIEWS: two views TECHNIQUE: Digital Frontal and Lateral radiographic views of the chest acquired. RADIATION DOSE: NA LIMITATIONS: none FINDINGS: LUNGS AND PLEURA: Small right pleural effusion, unchanged. Minimal scarring right base. Left lung clear. MEDIASTINUM AND HILAR STRUCTURES: No masses or contour abnormalities. HEART AND VASCULAR STRUCTURES: Heart normal size. No evidence for failure. BONES: No acute findings. HARDWARE: Surgical clips in the soft tissues on the left. OTHER: Left mastectomy. IMPRESSION: SMALL RIGHT PLEURAL EFFUSION. MILD SCARRING IN THE RIGHT BASE. NO SIGNIFICANT CHANGE. NO ACUTE FINDINGS. TECHNICAL DOCUMENTATION: JOB ID: [id number] [employer]- All Rights Reserved Reading location - IP/workstation name: [email or web address]
== END ==
LOC: OD 13:27
PROVIDERS: ATTEND Internal Medicine Cardiovascular Disease
DX: J90 Pleural effusion, not elsewhere classified (principal); R06.02 Shortness of breath; Z79.01 Long term (current) use of anticoagulants; Z79.899 Other long term (current) drug therapy
CPT/HCPCS: 36415; 71046; 85610

== ENCOUNTER → 2017-10-05 | Outpatient (CLI) | payer MEDICARE, OTHER ==
[2017-10-05 12:31] LABS: INTERNATIONAL RATION (INR) 1.54; PROTHROMBIN TIME 19.4 SEC (11.4-15.4)
== END ==
LOC: OD 11:40
PROVIDERS: ATTEND Internal Medicine Cardiovascular Disease
DX: Z79.01 Long term (current) use of anticoagulants (principal); Z79.899 Other long term (current) drug therapy
CPT/HCPCS: 36415; 85610

== ENCOUNTER → 2017-10-13 | Outpatient (CLI) | payer MEDICARE, OTHER ==
[2017-10-13 12:23] LABS: INTERNATIONAL RATION (INR) 1.84; PROTHROMBIN TIME 22.3 SEC (11.4-15.4)
== END ==
LOC: OD 11:09
PROVIDERS: ATTEND Internal Medicine Cardiovascular Disease
DX: Z79.01 Long term (current) use of anticoagulants (principal); Z79.899 Other long term (current) drug therapy
CPT/HCPCS: 36415; 85610

== ENCOUNTER → 2017-11-27 | Outpatient (CLI) | payer MEDICARE, OTHER ==
[2017-11-27 10:51] LABS: ABSOLUTE BASOPHILS # (AUTO) 0.1 10^3/uL (0.0-0.2); ABSOLUTE EOSINOPHILS # (AUTO) 0.3 10^3/uL (0.0-0.6); ABSOLUTE LYMPHOCYTES (AUTO) 1.9 10^3/uL (0.5-4.7); ABSOLUTE MONOCYTES (AUTO) 0.9 10^3/uL (0.1-1.4); ABSOLUTE NEUT (AUTO) 5.7 10^3/uL (1.7-8.2); BASOPHILS % (AUTO) 1.1 % (0-2); EOSINOPHILS % (AUTO) 3.8 % (0-6); HEMOGLOBIN 12.9 g/dL (12.0-15.5); LYMPHOCYTES % (AUTO) 21.5 % (13-45); MEAN CORPUSCULAR HEMOGLOBIN 28.6 pg (27.0-33.4); MEAN CORPUSCULAR VOLUME 87 fl (80-97); MONOCYTES % (AUTO) 9.6 % (3-13); PLATELET COUNT 383 10^3/uL (150-450); RED BLOOD COUNT 4.51 10^6/uL (3.72-5.28); RED CELL DISTRIBUTION WIDTH 17.3 % (11.5-14.0); TOTAL CELLS COUNTED % (AUTO) 100 %
[2017-11-27 11:04] LABS: ALANINE AMINOTRANSFERASE 21 U/L (9-52); ALBUMIN 3.4 g/dL (3.5-5.0); ALKALINE PHOSPHATASE 141 U/L (38-126); ANION GAP 11 (5-19); ASPARTATE AMINO TRANSFERASE 18 U/L (14-36); BILIRUBIN,DIRECT 0.3 mg/dL (0.0-0.4); BILIRUBIN,TOTAL 0.3 mg/dL (0.2-1.3); BLOOD UREA NITROGEN 10 mg/dL (7-20); CALCIUM 9.5 mg/dL (8.4-10.2); CARBON DIOXIDE 31 mmol/L (22-30); CHLORIDE 102 mmol/L (98-107); GLUCOSE 98 mg/dL (75-110); SODIUM 144.2 mmol/L (137-145); TOTAL PROTEIN 7.6 g/dL (6.3-8.2)
== END ==
LOC: ACHH 10:38
PROVIDERS: ATTEND Internal Medicine Infectious Disease
DX: R65.21 Severe sepsis with septic shock (principal); Z79.2 Long term (current) use of antibiotics
CPT/HCPCS: 80053; 85025

== ENCOUNTER → 2018-05-24 | Outpatient (CLI) | payer MEDICARE, OTHER ==
--- NOTE | 2018-05-24 12:58 | WOMENS IMAGING REPORT ---
EXAM DESCRIPTION: 3D SCREENING MAMMO RIGHT COMPLETED DATE/TIME: 05/24/2018 11:21 am REASON FOR STUDY: SCREENING MAMMO Z12.31 ENCNTR SCREEN MAMMOGRAM FOR MALIGNANT NEOPLASM OF MINISTERIO COMPARISON: [id number] TECHNIQUE: Standard craniocaudal and mediolateral oblique views of the breast recorded using digital acquisition and breast tomosynthesis. LIMITATIONS: None. FINDINGS: BREAST: right No masses, calcifications or architectural distortion. No areas of suspicion. Read with the assistance of CAD. .[facility] - R2 Cenova Version 1.3 .[facility] - R2 Cenova Version 1.3 .[facility] - R2 Cenova Version 2.4 .[facility] [place] - R2 Cenova Version 2.4 .[facility] - R2 General Utility Maintenance Repairer Version 9.2 IMPRESSION: NORMAL MAMMOGRAM. BIRADS 1. BREAST DENSITY: b. There are scattered areas of fibroglandular density. BIRAD: 1 Negative RECOMMENDATION: RECOMMENDATION: ROUTINE SCREENING. COMMENT: The patient has been notified of the results by letter per SA requirements. Additional no tification policies are in place for contacting patient with suspicious or incomplete findings. Quality ID #[id number]: The [employer] recommends an annual screening mammogram for women aged 40 years or over. This facility utilizes a reminder system to ensure that all patients receive reminder letters, and/or direct phone calls for appointments. This includes reminders for routine scr eening mammograms, diagnostic mammograms, or other Breast Imaging Interventions when appropriate. Th is patient will be placed in the appropriate reminder system. The [employer] (ACR) has developed recommendations for screening MRI of the breast s in certain patient populations, to be used in conjunction with mammography. Breast MRI surveillance may be appropriate for women with more than 20% lifetime risk of developing breast cancer as determi riya by genetic testing, significant family history of the disease, or history of mantle radiation for Hodgkins Disease. ACR Practice Guidelines 2008. DBT Technology DBT is a type of tomographic mammography. With conventional mammography, overlapping breast tissue ma y make lesions difficult to detect, even with good compression. DBT uses an x-ray tube that rotates a round the breast, taking images at different angles. These images are then combined to create thin sl ices of the breast that the radiologist can view as a 3D reconstruction. The [employer] unit can perform full-field digital mammograms (2D imaging); or DBT (3D imaging); or both, in a combination mode that quickly performs both the mammogram and the tomosynthesis scan while the breast is still compressed. PQRS 6045F: Fluoroscopic imaging is not utilized for breast tomosynthesis. TECHNICAL DOCUMENTATION: FINDING NUMBER: (1) ASSESSMENT: (1) JOB ID: [id number] [employer]- All Rights Reserved Reading location - IP/workstation name: [email or web address]
== END ==
LOC: WI 11:00
PROVIDERS: ATTEND Internal Medicine Medical Oncology
DX: Z12.31 Encounter for screening mammogram for malignant neoplasm of breast (principal)

== ENCOUNTER → 2019-06-29 | Outpatient (CLI) | payer MEDICARE, OTHER ==
--- NOTE | 2019-06-29 12:14 | WOMENS IMAGING REPORT ---
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 LIMITATIONS: None. FINDINGS: LUMBAR SPINE: The bone mineral density (BMD) measured from L1-L4 in the AP projection correlates with a T-score of -0.3, which is normal as defined by the World Health Organization. BMD Change vs Baseline: N/A HIP: The bone mineral density (BMD) measured in the left hip correlates with a T-score of -2.2, which is o steopenia as defined by the World Health Organization. BMD Change vs Baseline: 10% decrease 10 year Fracture Risk Assessment: Major Osteoporotic Fracture: 9% Hip Fracture: 2% IMPRESSION: 1. LUMBAR SPINE WHO CLASSIFICATION: NORMAL. 2. HIP WHO CLASSIFICATION: OSTEOPENIA. OVERALL ASSESSMENT: WHO CLASSIFICATION: OSTEOPENIA. COMMENT: The World Health Organization defines low BMD as follows: T-score: Normal: Greater than -1.0 Osteopenia: Between -1.0 and -2.5 Osteoporosis: Less than -2.5 without fractures Established osteoporosis: Less than -2.5 with fractures In general, you may wish to consider: Diagnosis Treatment Follow-up DEXA Normal BMD Prevention 2-3 years Osteopenia Prevention/Therapy 1-2 years Osteoporosis Therapy Yearly TECHNICAL DOCUMENTATION: JOB ID: [id number] [employer]- All Rights Reserved Reading location - IP/workstation name: [email or web address]
--- NOTE | 2019-06-29 12:28 | WOMENS IMAGING REPORT ---
EXAM DESCRIPTION: 3D SCREENING MAMMO RIGHT COMPLETED DATE/TIME: 06/29/2019 10:35 am REASON FOR STUDY: Z12.31 SCREENING MAMMO Z12.31 ENCNTR SCREEN MAMMOGRAM FOR MALIGNANT NEOPLASM OF B RE M81.0 AGE-RELATED OSTEOPOROSIS W/O CURRENT PATHOLOGICAL FRAC COMPARISON: Priors dating back to 2012 EXAM PARAMETERS: Standard craniocaudal and mediolateral oblique views of the breast recorded using d igital acquisition and breast tomosynthesis. Read with the assistance of CAD. .[facility] - [employer] Roof [employer]er Version 9.2 LIMITATIONS: None. FINDINGS: BREAST LATERALITY: right No suspicious masses, suspicious calcifications or architectural distortion. No areas of concern. IMPRESSION: NEGATIVE MAMMOGRAM. BIRADS 1. BREAST DENSITY: b. There are scattered areas of fibroglandular density. BIRAD: ASSESSMENT: 1 Negative RECOMMENDATION: RECOMMENDATION: ROUTINE SCREENING. COMMENT: The patient has been notified of the results by letter per MQSA requirements. Additional no tification policies are in place for contacting patient with suspicious or incomplete findings. Quality ID #[id number]: The [employer] recommends an annual screening mammogram for women aged 40 years or over. This facility utilizes a reminder system to ensure that all patients receive reminder letters, and/or direct phone calls for appointments. This includes reminders for routine scr eening mammograms, diagnostic mammograms, or other Breast Imaging Interventions when appropriate. Th is patient will be placed in the appropriate reminder system. TECHNICAL DOCUMENTATION: FINDING NUMBER: (1) ASSESSMENT: (1) JOB ID: [id number] [employer]- All Rights Reserved Reading location - IP/workstation name: [email or web address]
== END ==
LOC: WI 09:55
PROVIDERS: ATTEND Internal Medicine Hematology & Oncology
DX: Z12.31 Encounter for screening mammogram for malignant neoplasm of breast (principal); M81.0 Age-related osteoporosis without current pathological fracture
CPT/HCPCS: 77080

== ENCOUNTER 2019-09-24 15:43 | Emergency (ER) | payer MEDICARE, OTHER ==
[2019-09-24] MEDS: NORMAL SALINE 1000 ML 1,000 ML IV PRN ×2 (16:04→16:54)
[2019-09-24 16:24] LABS: VENOUS BLOOD HCO3 25.8 mmol/L (20-32); VENOUS BLOOD PCO2 37.9 mmHg (35-63); VENOUS BLOOD PH 7.45 (7.30-7.42)
[2019-09-24 16:28] LABS: HEMATOCRIT 41.9 % (36.0-47.0); HEMOGLOBIN 14.3 g/dL (12.0-15.5); INTERNATIONAL RATION (INR) 1.85; MEAN CORPUSCULAR HEMOGLOBIN 30.7 pg (27.0-33.4); MEAN CORPUSCULAR HGB CONC 34.1 g/dL (32.0-36.0); MEAN CORPUSCULAR VOLUME 90 fl (80-97); PLATELET COUNT 176 10^3/uL (150-450); PROTHROMBIN TIME 21.6 SEC (11.4-15.4); RED BLOOD COUNT 4.65 10^6/uL (3.72-5.28); RED CELL DISTRIBUTION WIDTH 13.5 % (11.5-14.0); WHITE BLOOD COUNT 9.4 10^3/uL (4.0-10.5)
[2019-09-24 16:41] LABS: APPEARANCE,URINE CLEAR; BILIRUBIN,URINE NEGATIVE (NEGATIVE); COLOR,URINE YELLOW; GLUCOSE, URINE NEGATIVE (NEGATIVE); KETONES,URINE NEGATIVE (NEGATIVE); PROTEIN,URINE NEGATIVE (NEGATIVE); URINE SPECIFIC GRAVITY 1.006; UROBILINOGEN,URINE NEGATIVE mg/dL (<2.0)
[2019-09-24 16:41] LABS: ALBUMIN 3.7 g/dL (3.5-5.0); ALKALINE PHOSPHATASE 115 U/L (38-126); ANION GAP 11 (5-19); ASPARTATE AMINO TRANSFERASE 35 U/L (14-36); BILIRUBIN,DIRECT 0.4 mg/dL (0.0-0.4); BILIRUBIN,TOTAL 1.9 mg/dL (0.2-1.3); BLOOD UREA NITROGEN 15 mg/dL (7-20); CALCIUM 9.4 mg/dL (8.4-10.2); CARBON DIOXIDE 22 mmol/L (22-30); CHLORIDE 102 mmol/L (98-107); CREATINE KINASE 36 U/L (30-135); GLUCOSE 127 mg/dL (75-110); POTASSIUM 4.6 mmol/L (3.6-5.0); TOTAL PROTEIN 6.9 g/dL (6.3-8.2)
[2019-09-24 16:53] LABS: ABSOLUTE LYMPHOCYTES# (MANUAL) 0.3 10^3/uL (0.5-4.7); ABSOLUTE MONOCYTES # (MANUAL) 0.1 10^3/uL (0.1-1.4); BASOPHILS % (MANUAL) 0 % (0-2); EOSINOPHILS % (MANUAL) 0 % (0-6); LYMPHOCYTES % (MANUAL) 3 % (13-45); MONOCYTES % (MANUAL) 1 % (3-13); SEGMENTED NEUTROPHILS % (MAN) 96 % (42-78); TOTAL CELLS COUNTED 100; TROPONIN I 0.014 ng/mL
[2019-09-24 16:54] LABS: CREATINE KINASE MB < 0.22 ng/mL (<4.55); OVALOCYTES 1+; PLATELET CLUMPS PRESENT; PLATELET COMMENT ADEQUATE; POIKILOCYTOSIS 1+
--- NOTE | 2019-09-24 16:55 | RADIOLOGY REPORT (SQ) ---
EXAM DESCRIPTION: CHEST SINGLE VIEW COMPLETED DATE/TIME: 09/24/2019 4:21 pm REASON FOR STUDY: sepsis alert COMPARISON: Chest radiographs 09/14/2017. EXAM PARAMETERS: NUMBER OF VIEWS: One view. TECHNIQUE: Single frontal radiographic view of the chest acquired. RADIATION DOSE: NA LIMITATIONS: None. FINDINGS: LUNGS AND PLEURA: Hypoventilated lungs. No focal airspace consolidation. No large joint effusion. No pneumothorax. MEDIASTINUM AND HILAR STRUCTURES: No masses. Contour normal. HEART AND VASCULAR STRUCTURES: Heart normal in size. Normal vasculature. BONES: No acute findings. HARDWARE: None in the chest. OTHER: Postsurgical changes left mastectomy and left axillary lymph node dissection. IMPRESSION: Hypoventilated lungs. No acute pulmonary findings otherwise. TECHNICAL DOCUMENTATION: JOB ID: [id number] 2011 [employer]- All Rights Reserved Reading location - IP/workstation name: [email or web address]
--- NOTE | 2019-09-24 19:41 | ER Document Report ---
ED General - General Chief Complaint: Fever Stated Complaint: FLU LIKE SYMPTOMS Time Seen by Provider: 09/24/19 19:38 Primary Care Provider: CRISS WATTERS MD [Primary Care Provider] - Follow up as needed Notes: 69-year-old female presents emergency department complaining that she has been sick for the past 4 to 5 days, complains of sweats, chills and rigors but has not been able to capture a fever on her thermometer at home. States that she fell yesterday when she stood up. States that she felt like she was off balance and then fell backwards and hit the back of her head. Did not completely lose consciousness. Today she fell again while she was sitting on the edge of her chair, when she tried to stand up she fell down, we are not certain whether she truly passed out or just had a near syncopal episode as nobody else was in the room. Patient thinks she may have had a near syncopal episode but is not posit jeremy. As long as she stands up slowly patient is able to walk without feeling off balance. Has not had any other syncopal or near syncopal episodes. Patient has had decreased oral intake, denies vomiting or diarrhea, complains of chronic epigastric abdominal pain but in absolutely no change from baseline. Denies sore throat, rhinorrhea, earache, chest pain or trouble breathing. Denies any other associated signs or symptoms. Patient does have a history of cysts in her liver that were previously operatively removed due to infection. Patient is not sure what type of an infection it was. TRAVEL OUTSIDE OF THE [place] IN LAST 30 DAYS: No - Related Data Allergies/Adverse Reactions: No Known Allergies Allergy (Verified 08/07/17 16:45) Past Medical History - General Information source: Patient - Social History Smoking Status: Former Smoker Frequency of alcohol use: None Drug Abuse: None Family History: DM, Hypertension Patient has suicidal ideation: No Patient has homicidal ideation: No - Past Medical History Cardiac Medical History: Reports: Hx Atrial Fibrillation, Hx Coronary Artery Disease, Hx Hypercholesterolemia, Hx Hypertension Denies: Hx Heart Attack Pulmonary Medical History: Denies: Hx Asthma, Hx Bronchitis, Hx COPD, Hx Pneumonia Neurological Medical History: Denies: Hx Cerebrovascular Accident, Hx Seizures Endocrine Medical History: Reports: Hx Diabetes Mellitus Type 2 - DIET CONTROLLED Renal/ Medical History: Denies: Hx Peritoneal Dialysis Malignancy Medical History: Reports: Hx Breast Cancer GI Medical History: Reports: Hx Gastroesophageal Reflux Disease Musculoskeletal Medical History: Reports Hx Arthritis Psychiatric Medical History: Denies: Hx Depression Past Surgical History: Reports: Hx Appendectomy, Hx Breast Surgery - left mastectomy, Hx Hysterectomy, Hx Tonsillectomy. Denies: Hx Pacemaker - Immunizations Hx Diphtheria, Pertussis, Tetanus Vaccination: Yes Hx Pneumococcal Vaccination: 04/03/06 Review of Systems - Review of Systems Constitutional: See HPI, Chills, Diaphoresis, Malaise EENT: No symptoms reported Cardiovascular: See HPI, Syncope - Versus near syncope. Respiratory: No symptoms reported Gastrointestinal: See HPI - Decreased appetite, Abdominal pain - Chronic epigastric.. denies: Diarrhea, Nausea, Vomiting Genitourinary: No symptoms reported Neurological/Psychological: See HPI -: Yes All other systems reviewed and negative Physical Exam - Vital signs Vitals: Resp 30 H 09/24/19 15:48 Interpretation: Hypotensive, Febrile - Notes Notes: GENERAL: Alert, interacts well. No acute distress. HEAD: Normocephalic, atraumatic EYES: Pupils equal, round and reactive to light, extraocular movements intact. ENT: Oral mucosa moist, tongue midline. NECK: Full range of motion, supple, trachea midline. LUNGS: Clear to auscultation bilaterally, no wheezes, rales or rhonchi, no respiratory distress. HEART: Regular rate and rhythm, no murmurs, gallops, rubs. ABDOMEN: Soft, nontender, nondistended, bowel sounds present in all 4 quadrants. EXTREMITIES: Moves all 4 extremities spontaneously, no edema, radial and dorsalis pedis pulses 2/4 bilaterally. No cyanosis. NEUROLOGICAL: Alert and oriented x3, normal speech, no facial droop, 5 out of 5 muscle strength. PSYCH: Normal mood, normal affect. SKIN: Warm, diaphoretic, normal turgor. Course - Re-evaluation Re-evalutation: 09/25/19 01:24 CBC unremarkable, INR slightly prolonged, she is taking Plavix, venous blood gas unremarkable, CMP shows low sodium at 135.0, glucose is nonfasting and elevated at 127, 3 lactic acids in a row are unremarkable, total bilirubin elevated at 1.9, direct bilirubin normal, troponin negative x2, TSH and free T3 are slightly low, this would not explain her fevers, urinalysis shows blood but no signs of infection, only 7 RBCs, flu a and B are negative. Chest x-ray does not show pneumonia. CT scan of the head was ordered to look for intracranial hemorrhage after hitting her head, this is negative. Doubt meningitis as she is not confused and she has no neck pain. Given her history of infected cysts in her liver and the fact that this apparently is following a similar pattern today compared to when she was diagnosed with infected cyst in her liver in 2009 and then again in 2018 I do think it is prudent to check a CAT scan of her liver. Chest X-Ray 09/24/19 15:51 IMPRESSION: Hypoventilated lungs. No acute pulmonary findings otherwise. Head CT 09/24/19 20:17 IMPRESSION: No acute intracranial findings. Abdomen/Pelvis CT 09/24/19 21:39 IMPRESSION: 1. Resolution of the previously noted liver cysts and liver abscess. 2. Fatty infiltration the liver with progressive intrahepatic biliary dilatation isolated to the left liver lobe. There is air in the biliary tree and the gallbladder. There is associated nonspecific periportal and upper abdominal lymphadenopathy. These findings are worrisome for potential neoplasm of the biliary tree. THIS REPORT CONTAINS FINDINGS THAT MAY BE CRITICAL TO PATIENT CARE: The findings were verbally discussed via telephone conference with Dr. PATI OVALLE at 11:06 PM ART PROFESSOR on 09/24/[address] scan of the liver is concerning for possible tumor in the biliary tree. Discussed with radiology whether there is any sign of obstruction or anything that would need ERCP this evening and she states that this is something that could be followed as an outpatient. Discussed this finding with patient and family member, they will continue to follow-up with the mule developer from [place] who did her initial treatment for biliary stones and for the infected liver cyst as an outpatient for possible ERCP and visualization of the bile duct/biliary tree. Discussed with patient and daughter that this evening she came in hypotensive, this is resolved to 2 L of fluid, she is no longer feeling off balance, she is able to walk without difficulty, I suspect her hypotension came from dehydration related to the fever. Currently have no source for fever however cancer in the biliary tree could cause a fever. At this point patient will be discharged home and encouraged to return should she develop any new symptoms that might help us to figure out exactly why she is febrile. Blood cultures are pending. - Vital Signs Vital signs: Temp Pulse Resp BP Pulse Ox 98.8 F 91 24 H 129/69 H 99 09/24/19 20:14 09/24/19 20:14 09/25/19 01:01 09/25/19 01:01 09/25/19 01:01 - Laboratory Result Diagrams: 09/24/19 16:00 09/24/19 16:00 Laboratory results interpreted by me: 09/24/19 09/24/19 09/24/19 16:00 16:00 16:00 Seg Neuts % (Manual) 96 H Lymphocytes % (Manual) 3 L Monocytes % (Manual) 1 L Abs Neuts (Manual) 9.0 H Abs Lymphs (Manual) 0.3 L PT 21.6 H VBG pH Sodium 135.0 L Glucose 127 H Total Bilirubin 1.9 H TSH Free T3 pg/mL Urine Blood 09/24/19 09/24/19 09/24/19 16:00 16:00 16:15 Seg Neuts % (Manual) Lymphocytes % (Manual) Monocytes % (Manual) Abs Neuts (Manual) Abs Lymphs (Manual) PT VBG pH 7.45 H Sodium Glucose Total Bilirubin TSH 0.39 L Free T3 pg/mL 1.90 L Urine Blood MODERATE H - EKG Interpretation by Me Additional EKG results interpreted by me: 09/24/19 19:40 EKG shows atrial fibrillation at a tachycardic rate of 113, slight ST segment depressions noted in 1, 2, V3, V4, V5 and V6, no ST segment elevations per my interpretation. Discharge - Discharge Clinical Impression: Dilated biliary tree, Possible biliary neoplasm Fever Qualifiers: Fever type: unspecified Qualified Code(s): R50.9 - Fever, unspecified Condition: Stable Disposition: HOME, SELF-CARE Additional Instructions: I do not know what is causing your fever this evening. We did not find a source. On your CAT scan the liver cysts and liver abscess have resolved. On the CAT scan they saw findings that were concerning for possible tumor in or around her gallbladder. This was described as "intrahepatic biliary dilation in the left liver lobe that has significantly progressed. There is an air-fluid level within your gallbladder that likely came from your prior ERCP but could suggest a fistula within the bowel. There is some enlarged lymph nodes at the level of the diaphragmatic hiatus and in the gastrohepatic ligament and in the nikki hepatis when combined with the dilation of the biliary tree are concerning for possible biliary neoplasm." I would like you to call the gastroenterologists in [place] who performed your initial ERCP and treated your liver cysts/abscess. Please return to the emergency department for develop of any further symptoms, more dizziness or passing out, vomiting or any new or concerning symptoms. Referrals: CRISS WATTERS MD [Primary Care Provider] - Follow up as needed
[2019-09-24 20:53] LABS: A TYPE INFLUENZA AG NEGATIVE (NEGATIVE)
[2019-09-24 20:54] LABS: B INFLUENZA AG NEGATIVE (NEGATIVE)
--- NOTE | 2019-09-24 21:26 | RADIOLOGY REPORT (SQ) ---
CT HEAD WITHOUT IV CONTRAST EXAM DATE: 09/24/2019 8:17 PM TIPPLE SUPERVISOR HISTORY: Fall, hit head, on eliquis. COMPARISON: None. TECHNIQUE: CT scan of the brain without IV contrast. This exam was performed according to our departmental dose-optimization program, which includes automated exposure control, adjustment of the mA and/or kV according to patient size and/or use of iterative reconstruction technique. FINDINGS: The ventricles, cisterns, and sulci are age-appropriate. No evidence of acute infarction, intracranial hemorrhage, extra-axial fluid collection, or midline shift. No air-fluid levels are seen in the paranasal sinuses to suggest acute sinusitis. No depressed skull fracture. IMPRESSION: No acute intracranial findings.
--- NOTE | 2019-09-24 22:02 | EKG REPORT ---
SEVERITY:- ABNORMAL ECG - ATRIAL FIBRILLATION, V-RATE 80-[address] DEPRESSION, LATERAL LEADS : Confirmed by: René Norris 24-Sep-2019 22:01:44
--- NOTE | 2019-09-24 22:02 | EKG REPORT ---
SEVERITY:- ABNORMAL ECG - ATRIAL FIBRILLATION, V-RATE 76-114 BORDERLINE PROLONGED QT INTERVAL : Confirmed by: René Norris 24-Sep-2019 22:01:36
[2019-09-24 22:26] LABS: FREE T3 1.9 pg/mL (2.77-5.27); FREE T4 (FREE THYROXINE) 1.73 ng/dL (0.78-2.19)
[2019-09-24 22:40] LABS: THYROID STIMULATING HORMONE 0.39 uIU/mL (0.47-4.68)
--- NOTE | 2019-09-25 00:12 | RADIOLOGY REPORT (SQ) ---
EXAM DESCRIPTION: CT scan of the abdomen and pelvis with IV contrast CLINICAL HISTORY: 69 years Female; fever, h/o infected liver cysts history of breast cancer. TECHNIQUE: CT of the abdomen and pelvis with intravenous contrast. Delayed imaging of the abdomen and pelvis was also performed. All CT scans at this facility use dose modulation, iterative reconstruction, and/or weight based dosing when appropriate to reduce radiation dose to as low as reasonably achievable. This exam was performed according to our department optimization program which includes automated exposure control, adjustment of the mA and/or kv according to patient size and/or use of iterative reconstruction technique. COMPARISON: CT scan of the abdomen and pelvis 09/10/2017 FINDINGS: Lower chest: Minimal volume loss in the lung bases. Left atrial enlargement is present. There are lymph nodes present anterior to the pericardium which measure 12 mm and are nonspecific. There appears to be postsurgical change in the left anterior chest wall. Abdomen: Liver and biliary tree: On the previous examination there were multiple liver cysts noted. There was a very complex cyst in the posterior aspect of the right liver lobe. These cysts for the most part are no longer seen. There is a single small residual cyst in the left liver lobe near the hemidiaphragm which measures 2.4 cm. There is been development of volume loss in the liver with a nodular appearance. Intrahepatic biliary dilatation is seen confined to the left liver lobe and has significantly progressed. The gallbladder is contracted. There is an air-fluid level within the gallbladder suggesting fistulous communication with the bowel. Common bile duct is dilated and measures 8 mm. Diffuse fatty infiltration of the liver. Pancreas: Normal Spleen:Within normal limits Kidneys: Kidneys are normal in size, shape and position. No stones. No mass or hydronephrosis. Symmetric renal enhancement bilaterally. Adrenal glands:Within normal limits Vascular structures: Scattered atherosclerotic vascular calcification. No aneurysm. The portal vein appears patent. Retroperitoneum: Lymph nodes are seen at the level of the diaphragmatic hiatus measuring 12 mm. There is lymph nodes in the gastrohepatic ligament which measure 13 mm. Lymph nodes are present in the nikki hepatis measuring 18 mm. These findings are worrisome for potential neoplasm. Abdominal wall: normal GI: Moderate stool is present in the colon. No bowel obstruction. No focal bowel wall thickening or inflammation. There are round hyperdense areas seen in the bowel suggestive of an ingested pill fragments. Appendix: The appendix is surgically absent. General: No free air. No free fluid Pelvis: Lymph nodes: No mass or lymphadenopathy Bladder: Unremarkable. Pelvis: Uterus and ovaries are not clearly seen. Bones: Bone mineralization is diminished and there is mild degenerative change. No destructive bone lesions. IMPRESSION: 1. Resolution of the previously noted liver cysts and liver abscess. 2. Fatty infiltration the liver with progressive intrahepatic biliary dilatation isolated to the left liver lobe. There is air in the biliary tree and the gallbladder. There is associated nonspecific periportal and upper abdominal lymphadenopathy. These findings are worrisome for potential neoplasm of the biliary tree. THIS REPORT CONTAINS FINDINGS THAT MAY BE CRITICAL TO PATIENT CARE: The findings were verbally discussed via telephone conference with Dr. PATI OVALLE at 11:06 PM REGISTRAR ASSISTANT on 09/24/2019 .
[2019-09-25 01:48] VITALS: BP 129/78
== END 2019-09-25 02:09 | disposition home or self-care (01) ==
LOC: ER 15:43
DX: K83.8 Other specified diseases of biliary tract (principal); R50.9 Fever, unspecified; R63.0 Anorexia; R61 Generalized hyperhidrosis; R53.81 Other malaise; R10.9 Unspecified abdominal pain; W19.XXXA Unspecified fall, initial encounter; Z87.891 Personal history of nicotine dependence; I48.91 Unspecified atrial fibrillation; I25.10 Atherosclerotic heart disease of native coronary artery without angina pectoris; I10 Essential (primary) hypertension; E11.9 Type 2 diabetes mellitus without complications
CPT/HCPCS: 93005; 99284; 96360; 96361; 36415; 87040; 84439; 82553; 82550; 83605; 84443; 85025; 85610; 87077; 80053; 81001; 84484; 84481; 82803; 87804; 87150 ×26; 71045; 70450; 74177; 93010; J7030; 87186

== ENCOUNTER 2019-09-25 23:55 | Inpatient (IN) | payer MEDICARE, OTHER ==
[2019-09-26] MEDS ORDERED: PIPERACILLIN/TAZOBACTAM 3.375 GM VIAL IV ONE (01:18)
--- NOTE | 2019-09-26 02:14 | ER Document Report ---
ED General - General Chief Complaint: Abnormal Lab Results Stated Complaint: ABNORMAL TEST RESULTS Time Seen by Provider: 09/26/19 01:17 Primary Care Provider: CRISS WATTERS MD [Primary Care Provider] - Follow up as needed Notes: 69 year old female presents to the ED after being called due to positive blood cultures. Patient has been having intermittent fevers for the past 5 days, was seen and discharged yesterday after not finding an acute cause for her fever. Work-up did show dilation of the biliary tree suspicious for possible biliary tumor but no evidence of acute infection. Today both sets of aerobic blood cultures grew out pseudomonas aeruginosa. Patient states that she is still having fevers, states that she is still having left lower quadrant pain and also still having pain along the well-healed scar on the left breast from her remote mastectomy. TRAVEL OUTSIDE OF THE [place] IN LAST 30 DAYS: No - Related Data Allergies/Adverse Reactions: No Known Allergies Allergy (Verified 09/26/19 02:40) Home Medications: synthroid. Atoravastatin. Furosemide. Eliquis. Pantoprazole. Metaprolol. Potasssium. Calcium. Magnesium. Fish oil Past Medical History - General Information source: Patient, Relative, [facility] Records - Social History Smoking Status: Never Smoker Chew tobacco use (# tins/day): No Drug Abuse: None Family History: DM, Hypertension Patient has suicidal ideation: No Patient has homicidal ideation: No - Past Medical History Cardiac Medical History: Reports: Hx Atrial Fibrillation, Hx Coronary Artery Disease, Hx Hypercholesterolemia, Hx Hypertension Denies: Hx Heart Attack Pulmonary Medical History: Denies: Hx Asthma, Hx Bronchitis, Hx COPD, Hx Pneumonia Neurological Medical History: Denies: Hx Cerebrovascular Accident, Hx Seizures Endocrine Medical History: Reports: Hx Diabetes Mellitus Type 2 - DIET CONTROLLED Renal/ Medical History: Denies: Hx Peritoneal Dialysis Malignancy Medical History: Reports: Hx Breast Cancer GI Medical History: Reports: Hx Gastroesophageal Reflux Disease Musculoskeletal Medical History: Reports Hx Arthritis Psychiatric Medical History: Denies: Hx Depression Past Surgical History: Reports: Hx Appendectomy, Hx Breast Surgery - left mastectomy, Hx Hysterectomy, Hx Tonsillectomy. Denies: Hx Pacemaker - Immunizations Hx Diphtheria, Pertussis, Tetanus Vaccination: Yes Hx Pneumococcal Vaccination: 04/03/06 Review of Systems - Review of Systems Constitutional: See HPI, Chills, Diaphoresis, Fever, Malaise, Weakness EENT: No symptoms reported Cardiovascular: See HPI, Chest pain - pain only over her mastectomy scar Respiratory: No symptoms reported. denies: Cough, Hurts to breathe Gastrointestinal: No symptoms reported, See HPI - LLQ abd pain Genitourinary: No symptoms reported -: Yes All other systems reviewed and negative Physical Exam - Vital signs Vitals: Temp Pulse Resp BP Pulse Ox 100.2 F 93 18 127/69 H 96 09/26/19 00:03 09/26/19 00:03 09/26/19 00:03 09/26/19 00:03 09/26/19 00:03 - Notes Notes: GENERAL: Alert, interacts well. No acute distress. HEAD: Normocephalic, atraumatic EYES: Pupils equal, round and reactive to light, extraocular movements intact. ENT: Oral mucosa moist, tongue midline. NECK: Full range of motion, supple, trachea midline. LUNGS: Clear to auscultation bilaterally, no wheezes, rales or rhonchi, no respiratory distress. HEART: Regular rate and rhythm, no murmurs, gallops, rubs. ABDOMEN: Soft, minimal left lower quadrant tenderness to palpation, nondistended, bowel sounds present in all 4 quadrants. EXTREMITIES: Moves all 4 extremities spontaneously, no edema, radial and dorsalis pedis pulses 2/4 bilaterally. No cyanosis. NEUROLOGICAL: Alert and oriented x3, normal speech. PSYCH: Normal mood, normal affect. SKIN: Warm, Dry, normal turgor, very well-healed incision to the left breast, no erythema, no swelling, no lesions, minimally tender to palpation. No evidence of infection or fluctuance. Course - Re-evaluation Re-evalutation: 09/26/19 03:07 CBC shows leukocytosis at 11.2 increased compared to yesterday, INR slightly prolonged, venous blood gas unremarkable, CMP grossly unremarkable, troponin negative, lactic acid negative. Blood cultures have been drawn. Zosyn has been started based off of 2 blood cultures with pseudomonas aeruginosa. Will discuss with Dr. Chandler for admission. 09/26/19 03:41 agrees to admit for antibiotic therapy to medical floor. - Vital Signs Vital signs: Temp Pulse Resp BP Pulse Ox 100.2 F 93 24 H 143/87 H 98 09/26/19 00:03 09/26/19 00:03 09/26/19 02:31 09/26/19 02:31 09/26/19 02:31 - Laboratory Result Diagrams: 09/26/19 01:48 09/26/19 01:48 Laboratory results interpreted by me: 09/26/19 09/26/19 09/26/19 01:48 01:48 01:48 WBC 11.2 H Lymph % (Auto) 12.1 L Absolute Neuts (auto) 8.9 H Seg Neutrophils % 79.2 H PT 16.0 H Sodium 135.1 L Total Protein 6.1 L Albumin 3.1 L Discharge - Discharge Clinical Impression: Pseudomonal bacteremia Condition: Good Disposition: ADMITTED INPATIENT Admitting Provider: Geraldine (Hospitalist) Unit Admitted: Medical Floor Referrals: CRISS WATTERS MD [Primary Care Provider] - Follow up as needed
[2019-09-26 02:16] LABS: VENOUS BLOOD HCO3 24.5 mmol/L (20-32); VENOUS BLOOD PCO2 39.7 mmHg (35-63); VENOUS BLOOD PH 7.41 (7.30-7.42)
[2019-09-26 02:20] LABS: ABSOLUTE LYMPHOCYTES (AUTO) 1.4 10^3/uL (0.5-4.7); ABSOLUTE MONOCYTES (AUTO) 0.9 10^3/uL (0.1-1.4); ABSOLUTE NEUT (AUTO) 8.9 10^3/uL (1.7-8.2); BASOPHILS % (AUTO) 0.2 % (0-2); EOSINOPHILS % (AUTO) 0.3 % (0-6); LYMPHOCYTES % (AUTO) 12.1 % (13-45); MEAN CORPUSCULAR HEMOGLOBIN 31.5 pg (27.0-33.4); MEAN CORPUSCULAR VOLUME 90 fl (80-97); MONOCYTES % (AUTO) 8.2 % (3-13); PLATELET COUNT 185 10^3/uL (150-450); RED BLOOD COUNT 4.11 10^6/uL (3.72-5.28); RED CELL DISTRIBUTION WIDTH 13.3 % (11.5-14.0); SEGMENTED NEUTROPHILS % (AUTO) 79.2 % (42-78); TOTAL CELLS COUNTED % (AUTO) 100 %; WHITE BLOOD COUNT 11.2 10^3/uL (4.0-10.5)
[2019-09-26 02:28] LABS: INTERNATIONAL RATION (INR) 1.27
[2019-09-26 02:36] LABS: ALBUMIN 3.1 g/dL (3.5-5.0); ALKALINE PHOSPHATASE 101 U/L (38-126); ANION GAP 8 (5-19); ASPARTATE AMINO TRANSFERASE 24 U/L (14-36); BILIRUBIN,TOTAL 0.9 mg/dL (0.2-1.3); BLOOD UREA NITROGEN 9 mg/dL (7-20); CALCIUM 8.7 mg/dL (8.4-10.2); CARBON DIOXIDE 24 mmol/L (22-30); CHLORIDE 103 mmol/L (98-107); GLUCOSE 86 mg/dL (75-110); POTASSIUM 3.8 mmol/L (3.6-5.0); TOTAL PROTEIN 6.1 g/dL (6.3-8.2)
[2019-09-26] MEDS ORDERED: MAGNESIUM HYDROXIDE SUSP 30 ML UDCUP PO PRN (04:08)
[2019-09-26] MEDS ORDERED: MAG HYDROX/AL HYDROX/SIMETH SUSP 30 ML UDCUP PO PRN (04:08)
[2019-09-26] MEDS ORDERED: PROMETHAZINE HCL INJ 25 MG/1 ML VIAL IV PRN (04:08)
[2019-09-26] MEDS ORDERED: MORPHINE SULFATE 10 MG/ML INJ IV PRN (04:17)
[2019-09-26] MEDS ORDERED: GUAIFENESIN SYRP 200 MG/10 ML UDC PO PRN (04:17)
[2019-09-26] MEDS ORDERED: LORAZEPAM INJ 2 MG/1 ML VIAL IV PRN (04:17)
[2019-09-26 05:27] LABS: APPEARANCE,URINE CLEAR; BILIRUBIN,URINE NEGATIVE (NEGATIVE); COLOR,URINE YELLOW; GLUCOSE, URINE NEGATIVE (NEGATIVE); KETONES,URINE 20 mg/dL (NEGATIVE); PROTEIN,URINE NEGATIVE (NEGATIVE); URINE SPECIFIC GRAVITY 1.014; UROBILINOGEN,URINE NEGATIVE mg/dL (<2.0)
[2019-09-26] MEDS: RINGERS SOLUTION,LACTATED 1,000 ML IV PRN ×2 (05:51→20:20)
[2019-09-26] MEDS ORDERED: PIPERACILLIN/TAZOBACTAM 3.375 GM VIAL IV SCH (06:00)
--- NOTE | 2019-09-26 06:09 | PDOC H&P ---
History of Present Illness Admission Date/PCP: 09/26/2019 03:44 CRISS WATTERS MD Patient complains of: Fever History of Present Illness: LUIS CANALES is a 69 year old female who presented to the emergency room with a 6-day history of fever. Patient admits intermittent subjective fevers accompanied by chills over the last 6 days. She was seen in the emergency room on 09/24/2019 and was found to have no acute source of her fever however blood cultures were performed and have been reported positive for pseudomonas aeruginosa and both aerobic bottles. Her fever and chills have been associated with several episodes of syncope with collapse and have been accompanied by generalized weakness. She denies other associated or accompanying signs and symptoms. She admits prior similar episodes with infected liver cysts in the past. He has not identified any aggravating or ameliorating factors for her fever. In the emergency room she was found to have a minimally elevated white blood count on today's visit and was noted to be febrile. She was started on IV antibiotic therapy in the ER and subsequently admitted hospital for further evaluation treatment. Past Medical History Cardiac Medical History: Reports: Atrial Fibrillation, Coronary Artery Disease, Hyperlipidema, Hypertension Denies: DVT, Myocardial Infarction, Pulmonary Embolism Pulmonary Medical History: Denies: Asthma, Bronchitis, Chronic Obstructive Pulmonary Disease (COPD), Pneumonia EENT Medical History: Denies: Cataracts, Ears - Hearing aids Neurological Medical History: Denies: Hemorrhagic CVA, Ischemic CVA, Seizures Endocrine Medical History: Reports: Diabetes Mellitus Type 2 Denies: Diabetes Mellitus Type 1, Hyperthyroidism, Hypothyroidism Renal/ Medical History: Denies: Chronic Kidney Disease, Nephrolithiasis Malignancy Medical History: Reports: Breast Cancer GI Medical History: Reports: Gastroesophageal Reflux Disease, Other - Infected liver cysts in the past Denies: Cirrhosis, Crohn's Disease, Hepatitis, Peptic Ulcer Disease, Ulcerative Colitis Musculoskeltal Medical History: Reports: Arthritis Denies: Gout Skin Medical History: Denies: Eczema, Psoriasis Psychiatric Medical History: Denies: Alcohol Dependency, Depression, Substance Abuse, Tobacco Dependency Traumatic Medical History: Reports: None Hematology: Denies: Anemia, Bleeding Tendencies Infectious Medical History: Reports: None, Other Past Surgical History Past Surgical History: Reports: Appendectomy, Hysterectomy, Mastectomy - Left, Tonsillectomy Social History Information Source: Patient Lives with: Spouse/Significant other Smoking Status: Never Smoker Electronic Cigarette use?: No Frequency of Alcohol Use: None Hx Recreational Drug Use: No Drugs: None Hx Prescription Drug Abuse: No - Advance Directive Resuscitation Status: Full Code Surrogate healthcare decision maker:: Coby Massey Family History Family History: DM, Hypertension. denies: CAD, Malignancy Parental Family History Reviewed: Yes Children Family History Reviewed: No Sibling(s) Family History Reviewed.: Yes Medication/Allergy Home Medications: Apixaban [Eliquis] 5 mg PO BID 09/26/19 Atorvastatin Calcium [Lipitor 20 mg Tablet] 20 mg PO QHS 09/26/19 Calcium Carbonate/Vitamin D3 [Calcium 500 + Vit D 200 Caplet] 1 tab-cap PO DAILY 09/26/19 Cyclosporine 0.05% Oph Emulsio [Restasis 0.05% Opthalmic Droperette] 1 drop OU ASDIR PRN 09/26/19 Fish Oil/Dha/Epa [Fish Oil 1,200 mg Fish Oil] 1 each PO DAILY 09/26/19 Furosemide [Lasix 40 mg Tablet] 40 mg PO QAM 09/26/19 Levothyroxine Sodium [Synthroid 0.025 mg Tablet] 25 mcg PO DAILY 09/26/19 Magnesium Oxide [Magnesium] 400 mg PO DAILY 09/26/19 Metoprolol Tartrate [Lopressor 50 mg Tablet] 50 mg PO Q12H 09/26/19 Pantoprazole Sodium [Protonix [address] Tablet] 40 mg PO QAM 09/26/19 Potassium Chloride 10 meq PO BID 09/26/19 Allergies/Adverse Reactions: No Known Allergies Allergy (Verified 09/26/19 02:40) Review of Systems Constitutional: PRESENT: as per HPI, chills, fever(s), weakness Eyes: ABSENT: visual disturbances, other - Eye pain Ears: ABSENT: hearing changes, other - Ear pain Nose, Mouth, and Throat: ABSENT: mouth pain, sore throat Cardiovascular: PRESENT: chest pain - Chronic left chest wall pain in mastectomy scar. ABSENT: palpitations Respiratory: ABSENT: cough, dyspnea Gastrointestinal: PRESENT: abdominal pain - Chronic right lower quadrant abdominal pain. ABSENT: constipation, diarrhea, nausea, vomiting Genitourinary: ABSENT: dysuria, hematuria Musculoskeletal: ABSENT: back pain, joint swelling, muscle weakness Integumentary: ABSENT: pruritus, rash Neurological: PRESENT: syncope. ABSENT: confusion, convulsions, focal weakness, memory loss Psychiatric: ABSENT: anxiety, depression Endocrine: ABSENT: cold intolerance, heat intolerance, polydipsia, polyphagia, polyuria Hematologic/Lymphatic: ABSENT: easy bleeding, easy bruising Allergic/Immunologic: ABSENT: seasonal rhinorrhea Physical Exam Vital Signs: Temp Pulse Resp BP Pulse Ox 100.2 F 93 24 H 143/87 H 98 09/26/19 00:03 09/26/19 00:03 09/26/19 02:31 09/26/19 02:31 09/26/19 02:31 Intake & Output 09/24/19 09/25/19 09/26/19 23:59 23:59 23:59 Weight 73 kg General appearance: PRESENT: no acute distress, cooperative Head exam: PRESENT: atraumatic, normocephalic Eye exam: PRESENT: conjunctiva pink. ABSENT: conjunctival injection, scleral icterus Ear exam: PRESENT: normal external ear exam. ABSENT: bleeding, drainage Mouth exam: PRESENT: dry mucosa, neck supple Neck exam: ABSENT: thyromegaly, tracheal deviation Respiratory exam: PRESENT: clear to auscultation jessica, symmetrical, unlabored Cardiovascular exam: PRESENT: RRR. ABSENT: clicks, gallop, rubs Pulses: PRESENT: normal radial pulses, normal dorsalis pedis pul Vascular exam: PRESENT: normal capillary refill. ABSENT: pallor GI/Abdominal exam: PRESENT: normal bowel sounds, soft Rectal exam: PRESENT: deferred Extremities exam: ABSENT: joint swelling, pedal edema Musculoskeletal exam: ABSENT: deformity, dislocation Neurological exam: PRESENT: alert, oriented to person, oriented to place, oriented to time, oriented to situation, CN II-XII grossly intact. ABSENT: motor sensory deficit Psychiatric exam: PRESENT: appropriate affect, normal mood Skin exam: PRESENT: dry, intact, warm. ABSENT: jaundice, rash, urticaria Results Laboratory Results: 09/26/19 01:48 09/26/19 01:48 09/26/19 09/26/19 09/26/19 01:48 01:48 01:48 WBC 11.2 H RBC 4.11 Hgb 13.0 Hct 37.0 MCV 90 MCH 31.5 MCHC 35.0 RDW 13.3 Plt Count 185 Seg Neutrophils % 79.2 H VBG pH 7.41 VBG pCO2 39.7 VBG HCO3 24.5 VBG Base Excess 0 Sodium 135.1 L Potassium 3.8 Chloride 103 Carbon Dioxide 24 Anion Gap 8 BUN 9 Creatinine 0.73 Est GFR ( Amer) > 60 Glucose 86 Lactic Acid Calcium 8.7 Total Bilirubin 0.9 AST 24 Alkaline Phosphatase 101 Total Protein 6.1 L Albumin 3.1 L 09/26/19 01:48 WBC RBC Hgb Hct MCV MCH MCHC RDW Plt Count Seg Neutrophils % VBG pH VBG pCO2 VBG HCO3 VBG Base Excess Sodium Potassium Chloride Carbon Dioxide Anion Gap BUN Creatinine Est GFR ( Amer) Glucose Lactic Acid 1.0 Calcium Total Bilirubin AST Alkaline Phosphatase Total Protein Albumin 09/26/19 01:48 Troponin I < 0.012 Assessment and Plan - Diagnosis (1) Pseudomonal bacteremia Is this a current diagnosis for this admission?: Yes (2) Syncopal episodes Qualifiers: Syncope type: unspecified Qualified Code(s): R55 - Syncope and collapse Is this a current diagnosis for this admission?: Yes (3) Orthostatic hypotension Is this a current diagnosis for this admission?: Yes (4) Fever and chills Is this a current diagnosis for this admission?: Yes (5) Atrial fibrillation Qualifiers: Atrial fibrillation type: longstanding persistent Qualified Code(s): I48.11 - Longstanding persistent atrial fibrillation Is this a current diagnosis for this admission?: Yes (6) Coronary artery disease Qualifiers: Coronary Disease-Associated Artery/Lesion type: [place] artery [place] vs. transplanted heart: [place] heart Associated angina: without angina Qualified Code(s): I25.10 - Atherosclerotic heart disease of 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 She will be treated with IV antibiotics initially using Levaquin and Zosyn pending culture and sensitivity results. She will receive IV fluids utilizing Ringer's lactate at 167 mL/h over the next 12 hours. Orthostatic vital signs will be obtained every shift. She will receive morphine sulfate 3 mg IV every 2 hours as needed for pain. She received Ativan 1 mg IV every 4 hours as needed for anxiety. CBCs, metabolic profiles and magnesium levels will be obtained as appropriate. Patient's usual home medications will be continued as appropriate, as soon as her medications list has been verified and reconciled. - Time Time Spent with patient: 25-34 minutes Medications reviewed and adjusted accordingly: Yes Anticipated discharge: Home - Inpatient Certification Based on my medical assessment, after consideration of the patient's comorbidities, presenting symptoms, or acuity I expect that the services needed warrant INPATIENT care.: Yes I certify that my determination is in accordance with my understanding of Medicare's requirements for reasonable and necessary INPATIENT services [42 CFR 412.3e].: Yes Medical Necessity: Need Close Monitoring Due to Risk of Patient Decompensation, Need For IV Fluids, Need for IV Antibiotics, Risk of Complication if Not Cared For in Hospital
[2019-09-26] MEDS: PANTOPRAZOLE SODIUM 40 MG TABLET.DR PO SCH (08:04)
[2019-09-26] MEDS: POTASSIUM CHLORIDE 10 MEQ TABLET.ER PO SCH ×2 (08:05→18:47)
--- NOTE | 2019-09-26 08:25 | EKG REPORT ---
SEVERITY:- ABNORMAL ECG - ATRIAL FIBRILLATION BORDERLINE T ABNORMALITIES, INFERIOR LEADS BORDERLINE PROLONGED QT INTERVAL : Confirmed by: René Norris 26-Sep-2019 08:25:09
[2019-09-26] MEDS: PIPERACILLIN SODIUM/TAZOBACTAM 3.375 GM in NORMAL SALINE 100 ML IV SCH ×3 (09:21→21:52)
[2019-09-26] MEDS: LEVOTHYROXINE SODIUM 0.025 MG TABLET PO SCH (09:22)
[2019-09-26] MEDS: CALCIUM CARBONATE 600 MG/VITAMIN D3 400 UNIT TABLET PO SCH ×2 (09:22→18:47)
[2019-09-26] MEDS: APIXABAN 5 MG TABLET PO SCH ×2 (09:22→18:47)
[2019-09-26] MEDS: METOPROLOL TARTRATE 50 MG TABLET PO SCH ×2 (09:22→21:53)
[2019-09-26] MEDS: FAMOTIDINE 20 MG TABLET PO SCH ×2 (09:22→21:52)
[2019-09-26] MEDS: LEVOFLOXACIN 750 MG/D5W RTU 750 MG/150 ML RTUPB IV SCH (09:23)
[2019-09-26] MEDS: DOCUSATE SODIUM 100 MG CAPSULE PO SCH ×2 (09:23→18:47)
[2019-09-26] MEDS: MAGNESIUM OXIDE 400 MG TABLET PO SCH (09:40)
--- NOTE | 2019-09-26 14:02 | Progress Note ---
Provider Note Provider Note: Patient seen by me. Continue plan from prior provider. Follow-up urine culture. Need to figure out source of patient's Pseudomonas bacteremia.
[2019-09-26] MEDS: ATORVASTATIN CALCIUM 20 MG TABLET PO SCH (21:52)
[2019-09-26] MEDS: ACETAMINOPHEN 325 MG TABLET PO PRN (22:42)
[2019-09-27] MEDS: PIPERACILLIN SODIUM/TAZOBACTAM 3.375 GM in NORMAL SALINE 100 ML IV SCH ×4 (02:58→21:24)
[2019-09-27 05:04] LABS: HEMATOCRIT 35.1 % (36.0-47.0); MEAN CORPUSCULAR HEMOGLOBIN 30.6 pg (27.0-33.4); MEAN CORPUSCULAR HGB CONC 34.2 g/dL (32.0-36.0); MEAN CORPUSCULAR VOLUME 89 fl (80-97); PLATELET COUNT 182 10^3/uL (150-450); RED BLOOD COUNT 3.92 10^6/uL (3.72-5.28); RED CELL DISTRIBUTION WIDTH 13.2 % (11.5-14.0); WHITE BLOOD COUNT 11.6 10^3/uL (4.0-10.5)
[2019-09-27 05:32] LABS: ANION GAP 8 (5-19); BLOOD UREA NITROGEN 7 mg/dL (7-20); CALCIUM 8.5 mg/dL (8.4-10.2); CARBON DIOXIDE 21 mmol/L (22-30); CHLORIDE 110 mmol/L (98-107); GLUCOSE 101 mg/dL (75-110); POTASSIUM 3.9 mmol/L (3.6-5.0)
[2019-09-27] MEDS: PANTOPRAZOLE SODIUM 40 MG TABLET.DR PO SCH (08:12)
[2019-09-27] MEDS: POTASSIUM CHLORIDE 10 MEQ TABLET.ER PO SCH ×3 (08:15→21:23)
[2019-09-27] MEDS: DOCUSATE SODIUM 100 MG CAPSULE PO SCH ×2 (09:49→17:09)
[2019-09-27] MEDS: METOPROLOL TARTRATE 50 MG TABLET PO SCH ×2 (09:49→21:24)
[2019-09-27] MEDS: APIXABAN 5 MG TABLET PO SCH ×2 (09:49→17:11)
[2019-09-27] MEDS: MAGNESIUM OXIDE 400 MG TABLET PO SCH (09:49)
[2019-09-27] MEDS: FAMOTIDINE 20 MG TABLET PO SCH ×2 (09:49→21:23)
[2019-09-27] MEDS: CALCIUM CARBONATE 600 MG/VITAMIN D3 400 UNIT TABLET PO SCH ×2 (09:49→17:10)
[2019-09-27] MEDS: LEVOTHYROXINE SODIUM 0.025 MG TABLET PO SCH (09:49)
[2019-09-27] MEDS: LEVOFLOXACIN 750 MG/D5W RTU 750 MG/150 ML RTUPB IV SCH (10:36)
--- NOTE | 2019-09-27 18:18 | PDOC PROGRESS REPORT ---
Subjective Progress Note for:: 09/27/19 Subjective:: Patient denies any fever. Admits to still feeling cold. Discussed her history of syncope with me telling me she has been having syncopal episodes for the past few years. Unfortunately the source of her syncopal episodes has not been discovered despite work-up outpatient. Currently has not tried to stand up and ambulate much since being in the hospital. Denies any abdominal pain, cough. Reason For Visit: PSEUDOMONAL AERUGINOSA BACTEREMIA Physical Exam Vital Signs: Temp Pulse Resp BP Pulse Ox 99.0 F 83 17 137/63 H 97 09/27/19 16:12 09/27/19 16:12 09/27/19 16:12 09/27/19 16:12 09/27/19 16:12 Intake & Output 09/26/19 09/27/19 09/28/19 06:59 06:59 06:59 Intake Total 2930 1050 Balance 2930 1050 Weight 73 kg 73.1 kg General appearance: PRESENT: no acute distress, cooperative Neck exam: ABSENT: JVD Respiratory exam: PRESENT: clear to auscultation jessica, unlabored. ABSENT: tachypnea, wheezes Cardiovascular exam: PRESENT: RRR, +S1, +S2. ABSENT: tachycardia GI/Abdominal exam: PRESENT: normal bowel sounds, soft. ABSENT: rebound, rigid, tenderness Neurological exam: PRESENT: alert, awake, oriented to person, oriented to place, oriented to time Results Laboratory Results: 09/27/19 04:24 09/27/19 04:24 09/27/19 09/27/19 04:24 04:24 WBC 11.6 H RBC 3.92 Hgb 12.0 Hct 35.1 L MCV 89 MCH 30.6 MCHC 34.2 RDW 13.2 Plt Count 182 Sodium 138.5 Potassium 3.9 Chloride 110 H Carbon Dioxide 21 L Anion Gap 8 BUN 7 Creatinine 0.62 Est GFR ( Amer) > 60 Glucose 101 Calcium 8.5 Magnesium 2.3 09/26/19 03:44 Clean Catch Midstream Urine Culture - Final 1,000 col/ml 09/26/19 01:48 Troponin I < 0.012 Assessment and Plan - Diagnosis (1) Pseudomonal bacteremia Is this a current diagnosis for this admission?: Yes (2) Syncopal episodes Qualifiers: Syncope type: unspecified Qualified Code(s): R55 - Syncope and collapse Is this a current diagnosis for this admission?: Yes (3) Atrial fibrillation Qualifiers: Atrial fibrillation type: longstanding persistent Qualified Code(s): I48.11 - Longstanding persistent atrial fibrillation Is this a current diagnosis for this admission?: Yes (4) Orthostatic hypotension Is this a current diagnosis for this admission?: Yes - Plan Summary Summary: The source of patient's Pseudomonas bacteremia is still unknown currently. Urinalysis was fairly positive but urine culture only showing 1000 cfu/ml making UTI unlikely. Abdominal CT done on prior ER visit she has resolution of her hepatic cyst. No current gastrointestinal symptoms at this time. Chest x-ray showing evidence of pneumonia. We will continue double Pseudomonas coverage with Zosyn and Levaquin. Patient currently afebrile. Follow-up blood cultures to ensure resolution. Regarding patient's syncope, this seems to be a chronic issue. Patient follows up with her provider who has been working her up for this but no clear cause at this time according to patient. Orthostatic hypotension documented on admission H&P. Will check orthostatics tomorrow morning. I have reviewed echocardiogram from 2 years ago which shows no eviden ce of any significant valvular disease or structural disease to cause syncope. Monitor on telemetry. - Time Time Spent with patient: 15-24 minutes
[2019-09-27] MEDS ORDERED: FUROSEMIDE 40 MG TABLET PO ONE (18:30)
[2019-09-27] MEDS: ATORVASTATIN CALCIUM 20 MG TABLET PO SCH ×2 (21:23→21:24)
[2019-09-27] MEDS: CYCLOSPORINE 0.05% OPH EMULSIO 0.4 ML DROPERETTE OU SCH (21:28)
[2019-09-27] MEDS: CARBOXYMETHYLCELLULOSE SOD 0.5% 0.4 ML DROPERETTE OU SCH (21:29)
[2019-09-28] MEDS: PIPERACILLIN SODIUM/TAZOBACTAM 3.375 GM in NORMAL SALINE 100 ML IV SCH ×4 (02:37→22:15)
[2019-09-28 05:10] LABS: HEMATOCRIT 33.8 % (36.0-47.0); HEMOGLOBIN 11.9 g/dL (12.0-15.5); MEAN CORPUSCULAR HEMOGLOBIN 31.1 pg (27.0-33.4); MEAN CORPUSCULAR HGB CONC 35.3 g/dL (32.0-36.0); MEAN CORPUSCULAR VOLUME 88 fl (80-97); PLATELET COUNT 217 10^3/uL (150-450); RED BLOOD COUNT 3.84 10^6/uL (3.72-5.28); RED CELL DISTRIBUTION WIDTH 13.3 % (11.5-14.0); WHITE BLOOD COUNT 10.6 10^3/uL (4.0-10.5)
[2019-09-28] MEDS: POTASSIUM CHLORIDE 10 MEQ TABLET.ER PO SCH ×3 (07:31→22:14)
[2019-09-28] MEDS: PANTOPRAZOLE SODIUM 40 MG TABLET.DR PO SCH (07:31)
[2019-09-28] MEDS ORDERED: FUROSEMIDE 40 MG TABLET PO SCH ×2 (08:00→10:00)
[2019-09-28] MEDS: ACETAMINOPHEN 325 MG TABLET PO PRN ×2 (08:04→22:13)
[2019-09-28] MEDS: MAGNESIUM OXIDE 400 MG TABLET PO SCH (09:02)
[2019-09-28] MEDS: DOCUSATE SODIUM 100 MG CAPSULE PO SCH ×2 (09:03→17:01)
[2019-09-28] MEDS: CALCIUM CARBONATE 600 MG/VITAMIN D3 400 UNIT TABLET PO SCH ×2 (09:09→17:09)
[2019-09-28] MEDS: APIXABAN 5 MG TABLET PO SCH ×2 (09:09→17:08)
[2019-09-28] MEDS: LEVOTHYROXINE SODIUM 0.025 MG TABLET PO SCH (09:09)
[2019-09-28] MEDS: LEVOFLOXACIN 750 MG/D5W RTU 750 MG/150 ML RTUPB IV SCH (09:09)
[2019-09-28] MEDS: FAMOTIDINE 20 MG TABLET PO SCH ×2 (09:10→22:14)
[2019-09-28] MEDS: METOPROLOL TARTRATE 50 MG TABLET PO SCH ×2 (09:10→22:14)
[2019-09-28] MEDS: CARBOXYMETHYLCELLULOSE SOD 0.5% 0.4 ML DROPERETTE OU SCH ×3 (09:11→17:09)
[2019-09-28] MEDS: CYCLOSPORINE 0.05% OPH EMULSIO 0.4 ML DROPERETTE OU SCH (09:11)
[2019-09-28] MEDS ORDERED: PANTOPRAZOLE SODIUM 40 MG PACKET.DR PO SCH (10:00)
[2019-09-28] MEDS ORDERED: NORMAL SALINE 500 ML IV ONE (10:57)
--- NOTE | 2019-09-28 18:40 | PDOC PROGRESS REPORT ---
Subjective Progress Note for:: 09/28/19 Subjective:: Patient feels well today. Denies any abdominal pain fever chills at this time. Reason For Visit: PSEUDOMONAL AERUGINOSA BACTEREMIA Physical Exam Vital Signs: Temp Pulse Resp BP Pulse Ox 97.8 F 91 21 H 110/58 L 99 09/28/19 11:07 09/28/19 14:00 09/28/19 11:07 09/28/19 11:07 09/28/19 11:07 Intake & Output 09/27/19 09/28/19 09/29/19 06:59 06:59 06:59 Intake Total 2930 1826 1340 Output Total 1 Balance 2930 1826 1339 Weight 73.1 kg 73.2 kg General appearance: PRESENT: no acute distress, cooperative Neck exam: ABSENT: JVD Respiratory exam: PRESENT: clear to auscultation jessica, symmetrical, unlabored. ABSENT: tachypnea, wheezes Cardiovascular exam: PRESENT: RRR, +S1, +S2. ABSENT: tachycardia GI/Abdominal exam: PRESENT: normal bowel sounds, soft. ABSENT: rebound, rigid, tenderness Neurological exam: PRESENT: alert, awake, oriented to person, oriented to place, oriented to time Results Laboratory Results: 09/28/19 04:11 09/27/19 04:24 09/28/19 04:11 WBC 10.6 H RBC 3.84 Hgb 11.9 L Hct 33.8 L MCV 88 MCH 31.1 MCHC 35.3 RDW 13.3 Plt Count 217 09/26/19 01:48 Troponin I < 0.012 Assessment and Plan - Diagnosis (1) Pseudomonal bacteremia Is this a current diagnosis for this admission?: Yes Plan: Noted on blood cultures from recent ER visit. Repeat blood cultures are negative. Continue on Levaquin and Zosyn. Will de-escalate to Levaquin tomorrow. Currently no sources noted and urine culture is negative. ID consulted. (2) Orthostatic hypotension Is this a current diagnosis for this admission?: Yes Plan: Give IV fluid boluses today due to orthostatic positivity. Check orthostatics again tomorrow morning. Hold Lasix. (3) Intrahepatic bile duct dilation Is this a current diagnosis for this admission?: Yes Plan: Notably, abdominal CT done on recent ER visit does show this finding accompanied with upper abdominal and periportal lymphadenopathy concerning for possibility of biliary tract malignancy. I will discuss with radiologist on how best to approach this and if they have been able to get MRCP or if patient will need to be directly referred for an ERCP with biopsy. (4) Syncopal episodes Qualifiers: Syncope type: unspecified Qualified Code(s): R55 - Syncope and collapse Is this a current diagnosis for this admission?: Yes Plan: This seems to be a chronic issue for patient currently being investigated outpatient by patient's provider. Patient was noted to have orthostatic hypotension as well. No syncopal episodes while here. Prior echo reviewed showing no evidence of valvular heart disease or other structural abnormality to explain syncope. Does have history of atrial fibrillation. No other known arrhythmias. (5) Atrial fibrillation Qualifiers: Atrial fibrillation type: longstanding persistent Qualified Code(s): I48.11 - Longstanding persistent atrial fibrillation Is this a current diagnosis for this admission?: Yes Plan: Continue Eliquis and Lopressor. (6) Liver cyst Is this a current diagnosis for this admission?: Yes Plan: Resolved according to recent abdominal CT - Time Time Spent with patient: Less than 15 minutes
[2019-09-28] MEDS: ATORVASTATIN CALCIUM 20 MG TABLET PO SCH (22:14)
[2019-09-29] MEDS: CARBOXYMETHYLCELLULOSE SOD 0.5% 0.4 ML DROPERETTE OU SCH ×5 (01:40→22:53)
[2019-09-29] MEDS: CYCLOSPORINE 0.05% OPH EMULSIO 0.4 ML DROPERETTE OU SCH ×3 (01:40→22:54)
[2019-09-29] MEDS: ATORVASTATIN CALCIUM 20 MG TABLET PO SCH ×3 (01:40→21:50)
[2019-09-29] MEDS: PIPERACILLIN SODIUM/TAZOBACTAM 3.375 GM in NORMAL SALINE 100 ML IV SCH ×3 (04:18→14:05)
[2019-09-29 05:19] LABS: HEMATOCRIT 35.1 % (36.0-47.0); MEAN CORPUSCULAR HEMOGLOBIN 30.4 pg (27.0-33.4); MEAN CORPUSCULAR HGB CONC 34.2 g/dL (32.0-36.0); MEAN CORPUSCULAR VOLUME 89 fl (80-97); PLATELET COUNT 263 10^3/uL (150-450); RED BLOOD COUNT 3.94 10^6/uL (3.72-5.28); RED CELL DISTRIBUTION WIDTH 13.5 % (11.5-14.0); WHITE BLOOD COUNT 11.2 10^3/uL (4.0-10.5)
--- NOTE | 2019-09-29 08:35 | Progress Note ---
Provider Note Provider Note: [facility] Telephone Advice Consultation Chart reviewed. Patient is a 69-year-old woman eith history of breast cancer s/p mastectomy and axillary lymph node dissection. She has a history of CAD, GERD, orthostatic hypotension, atrial fibrillation. She also had a history of hepatic cysts back in 2018 evaluated at [facility] and diagnosed with oriental cholangitis s/p stents placements (ERCP, EUS) and antibiotic therapy. She had E coli bacteremia at that time. She was seen in the ED on 09/24 due to intermittent fever, chills, weakness x 6 days. She was sent home as no source of infection was identified at that time. Her blood cultures came back positive for Pseudomonas aeruginosa in both sets. She was called back to come to the hospital. Her CT scan of abdomen and pelvis was abnormal. It did demonstrate resolution of most of hepatic cysts seen before except for a small one 2.4 cm in the left liver lobe associated with intrahepatic biliary dilatation. There were also air-fluid levels in the gallbladder with questionable fistulous communication. She was admitted and started on zosyn and levaquin. Blood cultures from 09/26 remain negative to date. She is afebrile and seems stable. ID consulted for recommendations regarding duration of therapy. PMH: Atrial fibrillation CAD Breast cancer GERD Hyperlipidemia Orthostatic hypotension PSH: Mastectomy Allergies: No Known Allergies Allergy (Verified 09/26/19 02:40) Medications: Apixaban [Eliquis 5 mg Tablet] 5 mg PO Q12 09/26/19 Atorvastatin Calcium [Lipitor 20 mg Tablet] 20 mg PO QHS 09/26/19 Calcium Citrate/Vitamin D2 [Gene-Citrate Plus Vitamin D Tablet] 1 tab PO Q12 09/26/19 Carboxymethylcellulose Sodium [Refresh Celluvisc Drops] 1 each OU QID 09/26/19 Cyclosporine 0.05% Oph Emulsio [Restasis 0.05% Opthalmic Droperette] 1 drop OU Q12 09/26/19 Fish Oil/Dha/Epa [Fish Oil 1,200 mg Fish Oil] 1 each PO DAILY 09/26/19 Furosemide [Lasix 40 mg Tablet] 40 mg PO QAM 09/26/19 Levothyroxine Sodium [Synthroid 0.025 mg Tablet] 25 mcg PO DAILY 09/26/19 Magnesium Oxide [Mag-Ox 400 mg Tablet] 400 mg PO DAILY 09/26/19 Metoprolol Tartrate [Lopressor 50 mg Tablet] 50 mg PO Q12 09/26/19 Pantoprazole Sodium [Protonix] 40 mg PO DAILY 09/26/19 Potassium Chloride 20 meq PO Q12 09/26/19 Vital Signs: Temp Pulse Resp BP Pulse Ox 97.8 F 78 17 120/82 98 09/29/19 04:39 09/29/19 07:00 09/29/19 04:39 09/29/19 04:39 09/29/19 04:39 Intake & Output 09/28/19 09/29/19 09/30/19 06:59 06:59 06:59 Intake Total 1825 2019 Output Total 1 Balance 1825 2018 Weight 73.2 kg 71.6 kg Weight/Height Weight 71.6 kg Height 5 ft 3 in Laboratories: 09/29/19 04:08 09/27/19 04:24 MCV 89 fl (80-97) 09/29/19 04:08 MCH 30.4 pg (27.0-33.4) 09/29/19 04:08 MCHC 34.2 g/dL (32.0-36.0) 09/29/19 04:08 RDW 13.5 % (11.5-14.0) 09/29/19 04:08 Seg Neutrophils % 79.2 % (42-78) H 09/26/19 01:48 VBG pH 7.41 (7.30-7.42) 09/26/19 01:48 VBG pCO2 39.7 mmHg (35-63) 09/26/19 01:48 VBG HCO3 24.5 mmol/L (20-32) 09/26/19 01:48 VBG Base Excess 0 mmol/L 09/26/19 01:48 Chloride 110 mmol/L (98-107) H 09/27/19 04:24 Carbon Dioxide 21 mmol/L (22-30) L 09/27/19 04:24 Anion Gap 8 (5-19) 09/27/19 04:24 Est GFR ( Amer) > 60 (>60) 09/27/19 04:24 Glucose 101 mg/dL (75-110) 09/27/19 04:24 Lactic Acid 1.2 mmol/L (0.7-2.1) 09/26/19 08:42 Calcium 8.5 mg/dL (8.4-10.2) 09/27/19 04:24 Magnesium 2.3 mg/dL (1.6-2.3) 09/27/19 04:24 Total Bilirubin 0.9 mg/dL (0.2-1.3) 09/26/19 01:48 AST 24 U/L (14-36) 09/26/19 01:48 Alkaline Phosphatase 101 U/L (38-126) 09/26/19 01:48 Total Protein 6.1 g/dL (6.3-8.2) L 09/26/19 01:48 Albumin 3.1 g/dL (3.5-5.0) L 09/26/19 01:48 Urine Color YELLOW 09/26/19 03:44 Urine Appearance CLEAR 09/26/19 03:44 Urine pH 6.0 (5.0-9.0) 09/26/19 03:44 Ur Specific [place] 1.014 09/26/19 03:44 Urine Protein NEGATIVE mg/dL (NEGATIVE) 09/26/19 03:44 Urine Glucose (UA) NEGATIVE mg/dL (NEGATIVE) 09/26/19 03:44 Urine Ketones 20 mg/dL (NEGATIVE) H 09/26/19 03:44 Urine Blood MODERATE (NEGATIVE) H 09/26/19 03:44 Urine RBC (Auto) 14 /HPF 09/26/19 03:44 09/26/19 01:48 Troponin I < 0.012 Microbiology: Blood cultures 09/24 Pseudomonas aeruginosa x 2 09/26 NGTD Urine cultures 09/26 NGTD Radiology: CT scan abdomen and pelvis 09/24/2019 A 2.4 cm residual cyst in the left liver lobe with intrahepatic biliary dilatation. Air-fluid levels in the gallbladder with suspicious fistulous communications. LAD noted. Assessment and Recommendations: Patient evaluated due to Pseudomonas aeruginosa bacteremia. Source seems to be intra abdominal as there is a residual cyst (maybe abscess?) in the liver, also intrahepatic biliary dilatation with air fluid levels in the gallbladder and questionable fistulous communication. Considering her history of oriental cholangitis, will recommend MRCP with GI evaluation and maybe surgery evaluation. Her labs are not consistent with cholangitis at this time, but in the setting of Pseudomonas bacteremia and abnormalities observed in the CT scan, will recommend further work up to assess for the need for source control. In terms of antibiotics, this was susceptible to zosyn, can discontinue levaquin. Duration of therapy is 14 days from negative cultures unless she has a liver abscess which may require up to 6 weeks of therapy. Please call back if any questions. Madeline Wells MD [facility] [place] [phone]
[2019-09-29] MEDS: PANTOPRAZOLE SODIUM 40 MG TABLET.DR PO SCH (08:44)
[2019-09-29] MEDS ORDERED: DEXTROSE 50%-WATER 25 GM/50 ML DISP.SYRIN IV PRN ×2 (09:36)
[2019-09-29] MEDS ORDERED: GLUCAGON,HUMAN RECOMB 1 MG INJ SUBCUT PRN (09:36)
[2019-09-29] MEDS ORDERED: DEXTROSE 40% GEL 15 GM TUBE PO PRN ×2 (09:36)
[2019-09-29] MEDS: APIXABAN 5 MG TABLET PO SCH ×2 (09:42→17:39)
[2019-09-29] MEDS: CALCIUM CARBONATE 600 MG/VITAMIN D3 400 UNIT TABLET PO SCH ×2 (09:42→17:39)
[2019-09-29] MEDS: MAGNESIUM OXIDE 400 MG TABLET PO SCH (09:42)
[2019-09-29] MEDS: FAMOTIDINE 20 MG TABLET PO SCH ×2 (09:42→21:49)
[2019-09-29] MEDS: METOPROLOL TARTRATE 50 MG TABLET PO SCH ×2 (09:42→21:49)
[2019-09-29] MEDS: POTASSIUM CHLORIDE 10 MEQ TABLET.ER PO SCH ×2 (09:43→21:48)
[2019-09-29] MEDS: LEVOTHYROXINE SODIUM 0.025 MG TABLET PO SCH (09:43)
[2019-09-29] MEDS: DOCUSATE SODIUM 100 MG CAPSULE PO SCH ×2 (09:44→17:36)
[2019-09-29] MEDS: LEVOFLOXACIN 750 MG/D5W RTU 750 MG/150 ML RTUPB IV SCH (09:44)
--- NOTE | 2019-09-29 15:16 | PDOC PROGRESS REPORT ---
Subjective Progress Note for:: 09/29/19 Subjective:: Patient feels well today. Denies any abdominal pain fever chills at this time. Reason For Visit: PSEUDOMONAL AERUGINOSA BACTEREMIA Physical Exam Vital Signs: Temp Pulse Resp BP Pulse Ox 98.9 F 85 20 112/68 98 09/29/19 11:39 09/29/19 11:39 09/29/19 11:39 09/29/19 11:39 09/29/19 11:39 Intake & Output 09/28/19 09/29/19 09/30/19 06:59 06:59 06:59 Intake Total 1825 2019 60 Output Total 1 Balance 1825 2018 60 Weight 73.2 kg 71.6 kg General appearance: PRESENT: no acute distress, cooperative Neck exam: ABSENT: JVD Respiratory exam: PRESENT: clear to auscultation jsesica, unlabored. ABSENT: tachypnea, wheezes Cardiovascular exam: PRESENT: RRR, +S1, +S2. ABSENT: tachycardia GI/Abdominal exam: PRESENT: normal bowel sounds, soft. ABSENT: rebound, rigid, tenderness Neurological exam: PRESENT: alert, awake Results Laboratory Results: 09/29/19 04:08 09/27/19 04:24 09/29/19 04:08 WBC 11.2 H RBC 3.94 Hgb 12.0 Hct 35.1 L MCV 89 MCH 30.4 MCHC 34.2 RDW 13.5 Plt Count 263 09/26/19 01:48 Troponin I < 0.012 Assessment and Plan - Diagnosis (1) Pseudomonal bacteremia Is this a current diagnosis for this admission?: Yes Plan: Noted on blood cultures from recent ER visit. Repeat blood cultures are negative. Transition to p.o. Levaquin Urine culture negative. Chest x-ray negative. Infectious disease consulted and also recommended MRI MRCP for further evaluation of intra-abdominal source. 14 days recommended for treatment duration in absence of abscess. (2) Orthostatic hypotension Is this a current diagnosis for this admission?: Yes Plan: Hold Lasix. Check orthostatics again. (3) Intrahepatic bile duct dilation Is this a current diagnosis for this admission?: Yes Plan: Notably, abdominal CT done on recent ER visit does show this finding accompanied with upper abdominal and periportal lymphadenopathy concerning for possibility of biliary tract malignancy. I have discussed with radiologist and proceeded with MRCP for further evalua tion. (4) Syncopal episodes Qualifiers: Syncope type: unspecified Qualified Code(s): R55 - Syncope and collapse Is this a current diagnosis for this admission?: Yes Plan: This seems to be a chronic issue for patient currently being investigated outpatient by patient's provider. Patient was noted to have orthostatic hypotension as well. No syncopal episodes while here. Prior echo reviewed showing no evidence of valvular heart disease or other structural abnormality to explain syncope. Does have history of atrial fibrillation. No other known arrhythmias. (5) Atrial fibrillation Qualifiers: Atrial fibrillation type: longstanding persistent Qualified Code(s): I48.11 - Longstanding persistent atrial fibrillation Is this a current diagnosis for this admission?: Yes Plan: Continue Eliquis and Lopressor. (6) Liver cyst Is this a current diagnosis for this admission?: Yes Plan: Resolved according to recent abdominal CT - Time Time Spent with patient: Less than 15 minutes
[2019-09-29] MEDS: ACETAMINOPHEN 325 MG TABLET PO PRN (21:51)
[2019-09-30] MEDS: PANTOPRAZOLE SODIUM 40 MG TABLET.DR PO SCH (08:48)
[2019-09-30 09:20] VITALS: BP 118/66
[2019-09-30] MEDS ORDERED: LEVOFLOXACIN 750 MG TABLET PO SCH (10:00)
--- NOTE | 2019-09-30 10:20 | RADIOLOGY REPORT (SQ) ---
EXAM DESCRIPTION: MRI ABDOMEN COMBO COMPLETED DATE/TIME: 09/29/2019 2:57 pm REASON FOR STUDY: Intrahep biliary dilation LNadenopathy on CT. MRCP COMPARISON: CT 09/24/2019, 09/10/2017, MRI 11/29/2014, 09/15/2012 TECHNIQUE: Multiplanar multisequence imaging performed without and with contrast including sagittal, axial and coronal T2, axial T1, axial gradient fat sat T1, axial, sagittal and coronal fat sat T1 po st contrast. CONTRAST TYPE AND DOSE: 20 mL Dotarem. RENAL FUNCTION: Creatinine 0.62 LIMITATIONS: None. FINDINGS: LIVER: Again seen is diffuse parenchymal atrophy involving the left lobe with diffuse intr ahepatic biliary ductal dilatation. This is similar dating back to exam dated MRI dated 2014. Paren chymal atrophy and left lobe biliary ductal dilatation was noted back and CT dated 2012 Diffuse enhan cement throughout the atrophy left lobe without identifiable focal lesion. There are scattered simpl e cysts within the right hepatic lobe, largest measuring 26 mm. These are stable from recent CT and decreased in size from more remote exams. SPLEEN: Normal size. No focal lesions. PANCREAS: No masses. No adjacent inflammation or peripancreatic fluid collections. Pancreatic duct no t dilated. GALLBLADDER: No definitive gallstones identified. Pneumobilia is present. There is dilation of the CBD to the level of the ampulla measuring up to 10 mm, this is similar to exam dated 11/29/2014. No d efinitive filling defect identified. Additionally, there is intrahepatic ductal dilation isolated to the left hepatic lobe. ADRENAL GLANDS: No significant masses or asymmetry. RIGHT KIDNEY AND URETER: No masses. No hydronephrosis. LEFT KIDNEY AND URETER: No masses. No hydronephrosis. AORTA AND VESSELS: No aneurysm. No dissection. Patent visualized visceral branches. RETROPERITONEUM: Stable cardiophrenic in perigastric lymph nodes without gross pathologic enlargement . No retroperitoneal mass or hemorrhage. BOWEL: No visualized masses. No inflammation. No significant dilatation. ABDOMINAL WALL AND PERITONEUM: No hernias. No free fluid. BONES: Limited evaluation. No acute findings. OTHER: Cardiomegaly. IMPRESSION: 1. Diffuse parenchymal atrophy involving the left lobe and intrahepatic biliary ductal dilatation. Findings similar dating back to exam dated 2014. Left lobe atrophy and biliary ductal d ilation also noted as far back as 2012 and patient with history of multiple hepatic cysts/abscesses. No evidence of focal discrete enhancing lesion. Chronic findings favor sequelae from more benign et iology. 2. Stable additional right hepatic lobe simple cyst. No right lobe ductal dilation. 3. Pneumobilia, recommend correlation with prior intervention. Stable dilation of the CBD measuring 10 mm. No definitive choledocholithiasis. No pancreatic ductal dilation. Case was discussed with Dr. Shaikh At 1013 hours on 09/30/2019. TECHNICAL DOCUMENTATION: JOB ID: [id number] 2010 [employer]- All Rights Reserved Reading location - IP/workstation name: [email or web address] [place]-
[2019-09-30] MEDS: METOPROLOL TARTRATE 50 MG TABLET PO SCH (10:51)
[2019-09-30] MEDS: LEVOTHYROXINE SODIUM 0.025 MG TABLET PO SCH (10:51)
[2019-09-30] MEDS: DOCUSATE SODIUM 100 MG CAPSULE PO SCH (10:51)
[2019-09-30] MEDS: MAGNESIUM OXIDE 400 MG TABLET PO SCH (10:51)
[2019-09-30] MEDS: FAMOTIDINE 20 MG TABLET PO SCH (10:51)
[2019-09-30] MEDS: APIXABAN 5 MG TABLET PO SCH (10:51)
[2019-09-30] MEDS: CALCIUM CARBONATE 600 MG/VITAMIN D3 400 UNIT TABLET PO SCH (10:51)
[2019-09-30] MEDS: CARBOXYMETHYLCELLULOSE SOD 0.5% 0.4 ML DROPERETTE OU SCH (10:52)
[2019-09-30] MEDS: POTASSIUM CHLORIDE 10 MEQ TABLET.ER PO SCH (10:52)
[2019-09-30] MEDS: CYCLOSPORINE 0.05% OPH EMULSIO 0.4 ML DROPERETTE OU SCH (10:53)
--- NOTE | 2019-09-30 15:26 | PDOC DISCHARGE SUMMARY ---
Impression - Admit/DC Date/PCP Admission Date/Primary Care Provider: 09/26/19 06:18 CRISS WATTERS MD Discharge Date: 09/30/19 - Discharge Diagnosis (1) Pseudomonal bacteremia Is this a current diagnosis for this admission?: Yes (2) Orthostatic hypotension Is this a current diagnosis for this admission?: Yes (3) Intrahepatic bile duct dilation Is this a current diagnosis for this admission?: Yes (4) Syncopal episodes Is this a current diagnosis for this admission?: Yes (5) Atrial fibrillation Is this a current diagnosis for this admission?: Yes (6) Liver cyst Is this a current diagnosis for this admission?: Yes - Additional Information Resuscitation Status: Full Code Discharge Diet: As Tolerated Discharge Activity: Activity As Tolerated Referrals: CRISS WATTERS MD [Primary Care Provider] - Follow up as needed (office closed at noon please call thursday for follow up appt) Prescriptions: Levofloxacin [Levaquin 750 mg Tablet] 750 mg PO DAILY #10 tablet Home Medications: Apixaban [Eliquis 5 mg Tablet] 5 mg PO Q12 09/26/19 Atorvastatin Calcium [Lipitor 20 mg Tablet] 20 mg PO QHS 09/26/19 Calcium Citrate/Vitamin D2 [Gene-Citrate Plus Vitamin D Tablet] 1 tab PO Q12 09/26/19 Carboxymethylcellulose Sodium [Refresh Celluvisc Drops] 1 each OU QID 09/26/19 Cyclosporine 0.05% Oph Emulsio [Restasis 0.05% Oph Emulsion Pf 0.4 ml] 1 drop OU Q12 09/26/19 Fish Oil/Dha/Epa [Fish Oil 1,200 mg Fish Oil] 1 each PO DAILY 09/26/19 Furosemide [Lasix 40 mg Tablet] 40 mg PO QAM 09/26/19 Levothyroxine Sodium [Synthroid 0.025 mg Tablet] 25 mcg PO DAILY 09/26/19 Magnesium Oxide [Mag-Ox 400 mg Tablet] 400 mg PO DAILY 09/26/19 Metoprolol Tartrate [Lopressor 50 mg Tablet] 50 mg PO Q12 09/26/19 Pantoprazole Sodium [Protonix] 40 mg PO DAILY 09/26/19 Potassium Chloride 20 meq PO Q12 09/26/19 Levofloxacin [Levaquin 750 mg Tablet] 750 mg PO DAILY #10 tablet 09/30/19 History of Present Illiness History of Present Illness: LUIS CANALES is a 69 year old female who presented to the emergency room with a 6-day history of fever. Patient admits intermittent subjective fevers accompanied by chills over the last 6 days. She was seen in the emergency room on 09/24/2019 and was found to have no acute source of her fever however blood cultures were performed and have been reported positive for pseudomonas aeruginosa and both aerobic bottles. Her fever and chills have been associated with several episodes of syncope with collapse and have been accompanied by generalized weakness. She denies other associated or accompanying signs and symptoms. She admits prior similar episodes with infected liver cysts in the past. He has not identified any aggravating or ameliorating factors for her fever. In the emergency room she was found to have a minimally elevated white blood count on today's visit and was noted to be febrile. She was started on IV antibiotic therapy in the ER and subsequently admitted hospital for further evaluation treatment. Hospital Course Hospital Course: Patient was admitted and treated for fever. Lab work revealed very mild to minimal leukocytosis. Of note, patient had recent ER visit 2 days prior to presentation during which blood cultures were obtained and grew Pseudomonas in all blood culture bottles. During that visit as well, chest x-ray showed no evidence of pneumonia and abdominal CT showed intrahepatic biliary duct dilation with some lymphadenopathy with possible concern for malignancy. It was suspected that patient's fevers were due to Pseudomonas bacteremia and she was started on double pseudomonal coverage with levofloxacin and Zosyn. Urine culture obtained was negative. Patient also denied any other abdominal symptoms. The source of patient's Pseudomonas bacteremia was unknown and infectious disease doctor was consulted. Given patient's history of liver cyst and liver abscess, further evaluation was performed with MRI of the abdomen with MRCP. The MRI revealed diffuse atrophy of the left lobe of the liver with intrahepatic biliary ductal dilation which appears similar dating all the way back to 2014 and no evidence of any focal discrete enhancing lesions as well as a stable right hepatic lobe simple cyst. The MRI findings favored a benign etiology and there was no malignancy noted. Patient was discharged in stable conditions after consultation with infectious disease on Levaquin for 10 days to complete a 14-day regimen. Of note repeat blood culture has been negative. Patient called and notified to ensure she picks up prescription from pharmacy. Of note patient was also treated for orthostatic hypotension with IV fluids. Physical Exam Vital Signs: Temp Pulse Resp BP Pulse Ox 97.9 F 76 16 118/66 97 09/30/19 12:32 09/30/19 12:32 09/30/19 12:32 09/30/19 12:32 09/30/19 12:32 Intake & Output 09/29/19 09/30/19 10/01/19 06:59 06:59 06:59 Intake Total 2019 1167 Output Total Balance 2018 116 Weight 71.6 kg 75.7 kg General appearance: PRESENT: no acute distress, cooperative Neurological exam: PRESENT: alert, awake, oriented to person, oriented to place, oriented to time Results Laboratory Results: WBC 11.2 10^3/uL (4.0-10.5) H 09/29/19 04:08 RBC 3.94 10^6/uL (3.72-5.28) 09/29/19 04:08 Hgb 12.0 g/dL (12.0-15.5) 09/29/19 04:08 Hct 35.1 % (36.0-47.0) L 09/29/19 04:08 MCV 89 fl (80-97) 09/29/19 04:08 MCH 30.4 pg (27.0-33.4) 09/29/19 04:08 MCHC 34.2 g/dL (32.0-36.0) 09/29/19 04:08 RDW 13.5 % (11.5-14.0) 09/29/19 04:08 Plt Count 263 10^3/uL (150-450) 09/29/19 04:08 Lymph % (Auto) 12.1 % (13-45) L 09/26/19 01:48 Morton % (Auto) 8.2 % (3-13) 09/26/19 01:48 Eos % (Auto) 0.3 % (0-6) 09/26/19 01:48 Baso % (Auto) 0.2 % (0-2) 09/26/19 01:48 Absolute Neuts (auto) 8.9 10^3/uL (1.7-8.2) H 09/26/19 01:48 Absolute Lymphs (auto) 1.4 10^3/uL (0.5-4.7) 09/26/19 01:48 Absolute Monos (auto) 0.9 10^3/uL (0.1-1.4) 09/26/19 01:48 Absolute Eos (auto) 0.0 10^3/uL (0.0-0.6) 09/26/19 01:48 Absolute Basos (auto) 0.0 10^3/uL (0.0-0.2) 09/26/19 01:48 Seg Neutrophils % 79.2 % (42-78) H 09/26/19 01:48 PT 16.0 SEC (11.4-15.4) H 09/26/19 01:48 INR 1.27 09/26/19 01:48 VBG pH 7.41 (7.30-7.42) 09/26/19 01:48 VBG pCO2 39.7 mmHg (35-63) 09/26/19 01:48 VBG HCO3 24.5 mmol/L (20-32) 09/26/19 01:48 VBG Base Excess 0 mmol/L 09/26/19 01:48 Sodium 138.5 mmol/L (137-145) 09/27/19 04:24 Potassium 3.9 mmol/L (3.6-5.0) 09/27/19 04:24 Chloride 110 mmol/L (98-107) H 09/27/19 04:24 Carbon Dioxide 21 mmol/L (22-30) L 09/27/19 04:24 Anion Gap 8 (5-19) 09/27/19 04:24 BUN 7 mg/dL (7-20) 09/27/19 04:24 Creatinine 0.62 mg/dL (0.52-1.25) 09/27/19 04:24 Est GFR ( Amer) > 60 (>60) 09/27/19 04:24 Est GFR (MDRD) Non-Af > 60 (>60) 09/27/19 04:24 Glucose 101 mg/dL (75-110) 09/27/19 04:24 Lactic Acid 1.2 mmol/L (0.7-2.1) 09/26/19 08:42 Calcium 8.5 mg/dL (8.4-10.2) 09/27/19 04:24 Magnesium 2.3 mg/dL (1.6-2.3) 09/27/19 04:24 Total Bilirubin 0.9 mg/dL (0.2-1.3) 09/26/19 01:48 Direct Bilirubin 0.0 mg/dL (0.0-0.4) 09/26/19 01:48 Neonat Total Bilirubin Not Reportable 09/26/19 01:48 Neonat Direct Bilirubin Not Reportable 09/26/19 01:48 Neonat Indirect Bili Not Reportable 09/26/19 01:48 AST 24 U/L (14-36) 09/26/19 01:48 ALT 21 U/L (<35) 09/26/19 01:48 Alkaline Phosphatase 101 U/L (38-126) 09/26/19 01:48 Troponin I < 0.012 ng/mL 09/26/19 01:48 Total Protein 6.1 g/dL (6.3-8.2) L 09/26/19 01:48 Albumin 3.1 g/dL (3.5-5.0) L 09/26/19 01:48 Urine Color YELLOW 09/26/19 03:44 Urine Appearance CLEAR 09/26/19 03:44 Urine pH 6.0 (5.0-9.0) 09/26/19 03:44 Ur Specific Lyme 1.014 09/26/19 03:44 Urine Protein NEGATIVE mg/dL (NEGATIVE) 09/26/19 03:44 Urine Glucose (UA) NEGATIVE mg/dL (NEGATIVE) 09/26/19 03:44 Urine Ketones 20 mg/dL (NEGATIVE) H 09/26/19 03:44 Urine Blood MODERATE (NEGATIVE) H 09/26/19 03:44 Urine Nitrite (Reflex) NEGATIVE (NEGATIVE) 09/26/19 03:44 Urine Bilirubin NEGATIVE (NEGATIVE) 09/26/19 03:44 Urine Urobilinogen NEGATIVE mg/dL (<2.0) 09/26/19 03:44 Leukocyte Esterase Rfl LARGE (NEGATIVE) H 09/26/19 03:44 Urine RBC (Auto) 14 /HPF 09/26/19 03:44 Urine WBC (Reflex) 21 /HPF 09/26/19 03:44 Squamous Epi Cells Auto 1 /HPF 09/26/19 03:44 Urine Mucus (Auto) RARE /LPF 09/26/19 03:44 Urine Ascorbic Acid NEGATIVE (NEGATIVE) 09/26/19 03:44 09/26/19 01:48 Troponin I < 0.012 Impressions: Abdomen MRI 09/29/19 00:00 IMPRESSION: 1. Diffuse parenchymal atrophy involving the left lobe and intrahepatic biliary ductal dilatation. Findings similar dating back to exam dated 2014. Left lobe atrophy and biliary ductal dilation also noted as far back as 2012 and patient with history of multiple hepatic cysts/abscesses. No evidence of focal discrete enhancing lesion. Chronic findings favor sequelae from more benign etiology. 2. Stable additional right hepatic lobe simple cyst. No right lobe ductal dilation. 3. Pneumobilia, recommend correlation with prior intervention. Stable dilation of the CBD measuring 10 mm. No definitive choledocholithiasis. No pancreatic ductal dilation. Case was discussed with Dr. Shaikh At 1013 hours on 09/30/2019. Plan Time Spent: Less than 30 Minutes Stroke Is this a Stroke Patient?: No Acute Heart Failure - Is this a Heart Failure Patient?: No
== END 2019-09-30 14:09 | disposition home or self-care (01) | DRG 872 ==
LOC: ER 23:55 → EH 09-26 03:55 → UNDOADMIN 09-26 03:55 → EH 09-26 06:18 → 4N 09-26 19:03
PROVIDERS: ADMIT Emergency Medicine; ATTEND Emergency Medicine
DX: R78.81 Bacteremia (principal); B96.5 Pseudomonas (aeruginosa) (mallei) (pseudomallei) as the cause of diseases classified elsewhere; R50.9 Fever, unspecified; I95.1 Orthostatic hypotension; K83.8 Other specified diseases of biliary tract; R59.0 Localized enlarged lymph nodes; K76.89 Other specified diseases of liver; I48.91 Unspecified atrial fibrillation; R10.32 Left lower quadrant pain; I25.10 Atherosclerotic heart disease of native coronary artery without angina pectoris; I10 Essential (primary) hypertension; E11.9 Type 2 diabetes mellitus without complications; K21.9 Gastro-esophageal reflux disease without esophagitis; M19.90 Unspecified osteoarthritis, unspecified site; Z90.12 Acquired absence of left breast and nipple; Z85.3 Personal history of malignant neoplasm of breast; Z83.3 Family history of diabetes mellitus; Z82.49 Family history of ischemic heart disease and other diseases of the circulatory system; Z90.49 Acquired absence of other specified parts of digestive tract; Z79.01 Long term (current) use of anticoagulants
CPT/HCPCS: 36415; 70450; 71045; 74177; 74183; 80048; 80053; 81001; 82550; 82553; 82803; 83605; 83735; 84439; 84443; 84481; 84484; 85025; 85027; 85610; 87040; 87077; 87086; 87150; 87186; 87804; 93005; 93010; 96360; 96361; 96365; 99284; A9576; J1956; J2543; J3490; J7030; J7040; J7050; J7120

== ENCOUNTER → 2020-07-02 | Outpatient (CLI) | payer MEDICARE, OTHER ==
--- NOTE | 2020-07-04 08:41 | WOMENS IMAGING REPORT ---
EXAM DESCRIPTION: 3D SCREENING MAMMO RIGHT IMAGES COMPLETED DATE/TIME: 07/02/2020 10:47 am REASON FOR STUDY: Z12.31 ENCNTR SCREEN MAMMOGRAM FOR MALIGNANT NEOPLASM OF BREAST Z12.31 ENCNTR SCR EEN MAMMOGRAM FOR MALIGNANT NEOPLASM OF MINISTERIO COMPARISON: 06/29/2019, 05/24/2018, 03/09/2017 EXAM PARAMETERS: Standard craniocaudal and mediolateral oblique views of the breast recorded using d igital acquisition and breast tomosynthesis. Read with the assistance of CAD. .[facility] - [employer] Demonstrator Version 9.2 LIMITATIONS: None. FINDINGS: BREAST LATERALITY: right No suspicious masses, suspicious calcifications or architectural distortion. No areas of concern. IMPRESSION: NEGATIVE MAMMOGRAM. BIRADS 1. BREAST DENSITY: b. There are scattered areas of fibroglandular density. BIRAD: ASSESSMENT: 1 Negative RECOMMENDATION: RECOMMENDATION: ROUTINE SCREENING. COMMENT: The patient has been notified of the results by letter per [place] requirements. Additional no tification policies are in place for contacting patient with suspicious or incomplete findings. Quality ID #[id number]: The [employer] recommends an annual screening mammogram for women aged 40 years or over. This facility utilizes a reminder system to ensure that all patients receive reminder letters, and/or direct phone calls for appointments. This includes reminders for routine scr eening mammograms, diagnostic mammograms, or other Breast Imaging Interventions when appropriate. Th is patient will be placed in the appropriate reminder system. TECHNICAL DOCUMENTATION: FINDING NUMBER: (1) ASSESSMENT: (1) JOB ID: [id number] 2010 [employer]- All Rights Reserved Reading location - IP/workstation name: [email or web address]
== END ==
LOC: WI 10:25
PROVIDERS: ATTEND Internal Medicine Hematology & Oncology
DX: Z12.31 Encounter for screening mammogram for malignant neoplasm of breast (principal)